=== PATIENT | female | born 1930 | race Caucasian/White ===

== ENCOUNTER 2016-11-21 12:36 | Emergency (ER) | payer MEDICARE ==
[2016-11-21] MEDS ORDERED: ONDANSETRON 4 MG/2 ML VIAL IVP STA (13:37)
[2016-11-21] MEDS ORDERED: SODIUM CHLORIDE 0.9% 1,000 ML IV STA (13:37)
[2016-11-21] MEDS ORDERED: FAMOTIDINE 20 MG/2 ML VIAL IV STA (13:37)
[2016-11-21 13:55] LABS: Basophils % (A) 1 %; CH 30.5; CHCM 33.2; Eosinophils # (A) 0.1 k/uL (0-0.7); Eosinophils % (A) 1 %; HCT 41.8 % (34.0-46.0); HDW 2.43; HGB 13.8 gm/dL (11.4-16.0); Luc # (Auto) 0.19; Luc % (Auto) 2; Lymphocytes # (A) 2.3 k/uL (1.0-4.8); Lymphocytes % (A) 30 %; MCH 30.4 pg (25.0-35.0); MCV 92.2 fL (80.0-100.0); Mean Platelet Volume 7.8; Monocytes # (A) 0.6 k/uL (0-1.0); Monocytes % (A) 8 %; Neutrophils # (A) 4.4 k/uL (1.3-7.7); Neutrophils % (A) 58 %; RBC 4.54 m/uL (3.80-5.40); RDW 13.6 % (11.5-15.5); WBC 7.6 k/uL (3.8-10.6); WBC (Perox) 7.09
[2016-11-21 14:07] LABS: ALT 25 U/L (9-52); AST 22 U/L (14-36); Alkaline Phosphatase 48 U/L (38-126); Anion Gap 14 mmol/L; Blood Urea Nitrogen 18 mg/dL (7-17); Calcium 10.3 mg/dL (8.4-10.2); Carbon Dioxide 22 mmol/L (22-30); Chloride 111 mmol/L (98-107); Glucose 88 mg/dL (74-99); Non-African American GFR(MDRD) >60 (>60 ml/min/1.73 sqM); Potassium 4.3 mmol/L (3.5-5.1); Sodium 147 mmol/L (137-145); Total Bilirubin 0.7 mg/dL (0.2-1.3); Total Protein 7.5 g/dL (6.3-8.2)
--- NOTE | 2016-11-21 14:15 | ED ---
Abdominal Pain HPI - General Chief Complaint: Abdominal Pain Stated Complaint: poss gallbladder problems Time Seen by Provider: 11/21/16 13:06 Source: patient Mode of arrival: ambulatory Limitations: physical limitation - History of Present Illness Initial Comments: The patient is an 86-year-old female who presents to the ED with a chief complaint of epigastric discomfort. Patient states that she's had these symptoms for the past 3 days. She states that they are associated with a burning sensation. They are associated with nausea and vomiting. Patient denies any fevers or chills. She denies any shortness of breath associated with her discomfort. Patient states that she's vomited several times. Patient notes that she has had no problem with having bowel movements. In addition to that, she states that she has been able to tolerate some food by mouth. The patient states that she believes that her symptoms are secondary to her gallbladder. The patient denies any history of cardiac disease. Patient has a history of hypertension. She denies any dysuria or hematuria - Related Data Home Medications Medication Instructions Recorded Confirmed Rosuvastatin [Crestor] 20 mg PO DAILY 05/30/14 11/21/16 [id number]-[id number] [id number] 1 tab PO HS PRN 11/21/16 11/21/16 [Excedrin] Donepezil [Aricept] 10 mg PO HS 11/21/16 11/21/16 Prevagen Extra Strength 1 tab PO DAILY 11/21/16 11/21/16 Previous Rx's Medication Instructions Recorded Cefuroxime Axetil [Ceftin] 500 mg PO BID #14 tab 11/21/16 Omeprazole 20 mg PO DAILY #14 capsule. 11/21/16 Sucralfate [Carafate] 1 gm PO ACHS #420 ml 11/21/16 Allergies Allergy/AdvReac Type Severity Reaction Status Date / Time codeine AdvReac Unknown Rapid Verified 11/21/16 14:15 Heart Rate Review of Systems ROS Statement: Those systems with pertinent positive or pertinent negative responses have been documented in the HPI. ROS Other: All systems not noted in ROS Statement are negative. Constitutional: Denies: fever, chills, weakness Eyes: Denies: vision change ENT: Denies: ear pain, throat pain, dental pain, hearing loss Respiratory: Denies: cough, dyspnea, wheezes, hemoptysis Cardiovascular: Denies: chest pain Endocrine: Denies: fatigue Gastrointestinal: Reports: abdominal pain (epigastric), nausea, vomiting. Denies: diarrhea, constipation Genitourinary: Denies: urgency, dysuria, frequency, hematuria Musculoskeletal: Denies: back pain Skin: Denies: rash, lesions Neurological: Denies: headache, weakness Psychiatric: Denies: anxiety, depression Past Medical History Past Medical History: Chest Pain / Angina, COPD, GERD/Reflux, Hearing Disorder / Deafness, Hyperlipidemia, Liver Disease, Osteoarthritis (OA), Pneumonia Additional Past Medical History / Comment(s): RA. 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 History of Any Multi-Drug Resistant Organisms: None Reported Past Surgical History: Appendectomy, Hernia Repair, Hysterectomy Additional Past Surgical History / Comment(s): RT ING HERNIA 05/30/14. Past Anesthesia/Blood Transfusion Reactions: No Reported Reaction Past Psychological History: No Psychological Hx Reported Smoking Status: Never smoker Past Alcohol Use History: None Reported Past Drug Use History: None Reported General Exam Limitations: physical limitation General appearance: alert, in no apparent distress Head exam: Present: atraumatic, normocephalic Eye exam: Present: normal appearance, PERRL Pupils: Present: normal accommodation ENT exam: Present: normal exam, mucous membranes dry Neck exam: Present: normal inspection, full ROM Respiratory exam: Present: normal lung sounds bilaterally. Absent: respiratory distress, wheezes, rales, rhonchi, stridor Cardiovascular Exam: Present: regular rate, normal rhythm GI/Abdominal exam: Present: soft, tenderness (mild epigastric discomfort). Absent: distended, guarding, rebound Extremities exam: Present: normal inspection, full ROM Back exam: Present: normal inspection, full ROM Neurological exam: Present: alert, oriented X3 Psychiatric exam: Present: normal affect, normal mood Skin exam: Present: warm, dry Course Vital Signs 11/21/16 11/21/16 11/21/16 12:42 16:03 17:12 Temperature 98.6 F 99.0 F Pulse Rate 67 64 61 Respiratory 16 17 16 Rate Blood Pressure 139/71 153/92 163/72 O2 Sat by Pulse 98 94 L 97 Oximetry Medical Decision Making - Medical Decision Making The patient is an 86-year-old female who presents to the ED with a chief complaint of epigastric discomfort. Patient states that her symptoms are associated with nausea and vomiting. Patient states that her symptoms have been present over the course the past 3 days. She states that they have not become worse over this time. Patient notes that she's had some nausea and vomiting. Patient denies any fevers or chills. Patient states that she is concerned that she might have an abnormality with her gallbladder. Check ultrasound to rule out pathology with the gallbladder. Check liver function tests and lipase. Provide patient with Pepcid and Zofran for symptomatically relief. 5:22 PM Patient is noted to have normal EKG. Normal troponin. Normal ultrasound of the gallbladder. Normal CT abdomen and pelvis. Patient states that her symptoms have been improved. She's been able to tolerate by mouth while here in the ED. Will discharge patient home with Omeprazole and Carafate at this point in time. Counseled the patient to follow up with her PCP for further management of her symptoms over the long-term. Encouraged to return to the ED should her symptoms worsen. The patient states that she has had full resolution of her symptoms since coming to the ED. Answered all the patient's questions to her satisfaction. - Lab Data Result diagrams: 11/21/16 13:24 11/21/16 13:24 Lab Results 11/21/16 11/21/16 11/21/16 Range/Units 13:24 13:24 13:24 WBC 7.6 (3.8-10.6) k/uL RBC 4.54 (3.80-5.40) m/uL Hgb 13.8 (11.4-16.0) gm/dL Hct 41.8 (34.0-46.0) % MCV 92.2 (80.0-100.0) fL MCH 30.4 (25.0-35.0) pg MCHC 33.0 (31.0-37.0) g/dL RDW 13.6 (11.5-15.5) % Plt Count 271 (150-450) k/uL Neutrophils % 58 % Lymphocytes % 30 % Monocytes % 8 % Eosinophils % 1 % Basophils % 1 % Neutrophils # 4.4 (1.3-7.7) k/uL Lymphocytes # 2.3 (1.0-4.8) k/uL Monocytes # 0.6 (0-1.0) k/uL Eosinophils # 0.1 (0-0.7) k/uL Basophils # 0.0 (0-0.2) k/uL APTT (22.0-30.0) sec Sodium 147 H (137-145) mmol/L Potassium 4.3 (3.5-5.1) mmol/L Chloride 111 H (98-107) mmol/L Carbon Dioxide 22 (22-30) mmol/L Anion Gap 14 mmol/L BUN 18 H (7-17) mg/dL Creatinine 0.80 (0.52-1.04) mg/dL Est GFR (MDRD) Af Amer >60 (>60 ml/min/1.73 sqM) Est GFR (MDRD) Non-Af >60 (>60 ml/min/1.73 sqM) Glucose 88 (74-99) mg/dL Calcium 10.3 H (8.4-10.2) mg/dL Magnesium 2.0 (1.6-2.3) mg/dL Total Bilirubin 0.7 (0.2-1.3) mg/dL AST 22 (14-36) U/L ALT 25 (9-52) U/L Alkaline Phosphatase 48 (38-126) U/L Troponin I <0.012 (0.000-0.034) ng/mL Total Protein 7.5 (6.3-8.2) g/dL Albumin 4.3 (3.5-5.0) g/dL Lipase 170 (23-300) U/L Urine Color Urine Appearance (Clear) Urine pH (5.0-8.0) Ur Specific [place] (1.001-1.035) Urine Protein (Negative) Urine Glucose (UA) (Negative) Urine Ketones (Negative) Urine Blood (Negative) Urine Nitrite (Negative) Urine Bilirubin (Negative) Urine Urobilinogen (<2.0) mg/dL Ur Leukocyte Esterase (Negative) Urine RBC (0-5) /hpf Urine WBC (0-5) /hpf Ur Squamous Epith Cells (0-4) /hpf Urine Bacteria (None) /hpf Hyaline Casts (0-2) /lpf Urine Mucus (None) /hpf Urine Yeast (Budding) (None) /hpf 11/21/16 11/21/16 Range/Units 13:24 13:42 WBC (3.8-10.6) k/uL RBC (3.80-5.40) m/uL Hgb (11.4-16.0) gm/dL Hct (34.0-46.0) % MCV (80.0-100.0) fL MCH (25.0-35.0) pg MCHC (31.0-37.0) g/dL RDW (11.5-15.5) % Plt Count (150-450) k/uL Neutrophils % % Lymphocytes % % Monocytes % % Eosinophils % % Basophils % % Neutrophils # (1.3-7.7) k/uL Lymphocytes # (1.0-4.8) k/uL Monocytes # (0-1.0) k/uL Eosinophils # (0-0.7) k/uL Basophils # (0-0.2) k/uL APTT 22.9 (22.0-30.0) sec Sodium (137-145) mmol/L Potassium (3.5-5.1) mmol/L Chloride (98-107) mmol/L Carbon Dioxide (22-30) mmol/L Anion Gap mmol/L BUN (7-17) mg/dL Creatinine (0.52-1.04) mg/dL Est GFR (MDRD) Af Amer (>60 ml/min/1.73 sqM) Est GFR (MDRD) Non-Af (>60 ml/min/1.73 sqM) Glucose (74-99) mg/dL Calcium (8.4-10.2) mg/dL Magnesium (1.6-2.3) mg/dL Total Bilirubin (0.2-1.3) mg/dL AST (14-36) U/L ALT (9-52) U/L Alkaline Phosphatase (38-126) U/L Troponin I (0.000-0.034) ng/mL Total Protein (6.3-8.2) g/dL Albumin (3.5-5.0) g/dL Lipase (23-300) U/L Urine Color Yellow Urine Appearance Cloudy H (Clear) Urine pH 8.0 (5.0-8.0) Ur Specific [place] 1.016 (1.001-1.035) Urine Protein Negative (Negative) Urine Glucose (UA) Negative (Negative) Urine Ketones Negative (Negative) Urine Blood Negative (Negative) Urine Nitrite Positive H (Negative) Urine Bilirubin Negative (Negative) Urine Urobilinogen <2.0 (<2.0) mg/dL Ur Leukocyte Esterase Large H (Negative) Urine RBC 2 (0-5) /hpf Urine WBC 8 H (0-5) /hpf Ur Squamous Epith Cells 1 (0-4) /hpf Urine Bacteria Occasional H (None) /hpf Hyaline Casts 4 H (0-2) /lpf Urine Mucus Rare H (None) /hpf Urine Yeast (Budding) Few H (None) /hpf 11/21/16 14:15 EKG demonstrates normal sinus rhythm. There are no concerning ST or T-wave changes. The OH and QRS intervals are within normal limits. Disposition Clinical Impression: Acute UTI, Acute gastritis, Dehydration Disposition: HOME SELF-CARE Condition: Good Instructions: Sucralfate (By mouth), Omeprazole (By mouth), Gastritis (ED), Urinary Tract Infection in Women (ED) Additional Instructions: Please follow up with Dr. Quinones within the next 3-5 days to ensure that your symptoms are improving. You're being discharged with a prescription for antibiotics to treat her urinary tract infection. Also be discharged with medication help with her stomach discomfort. Please return to the ED should you have worsening symptoms while at home. Prescriptions: Cefuroxime Axetil [Ceftin] 500 mg PO BID #14 tab Omeprazole 20 mg PO DAILY #14 capsule.dr Palmer [Carafate] 1 gm PO ACHS #420 ml Referrals: Sabrina Quinones MD [Primary Care Provider] - 11/25/16 (Please follow up with Dr. Quinones within the next 3-5 days regarding your visit to the ED today) Time of Disposition: 17:22
[2016-11-21 14:33] LABS: Appearance,Urine Cloudy (Clear); Bacteria,Urine Occasional /hpf; Bilirubin,Urine Negative (Negative); Glucose,Urine (UA) Negative (Negative); Ketones,Urine Negative (Negative); Leukocyte Esterase,Urine Large (Negative); Mucus,Urine Rare /hpf; Nitrite,Urine Positive (Negative); Particle Count 87100; Protein,Urine Negative (Negative); RBC,Urine 2 /hpf (0-5); Specific Gravity,Urine 1.016 (1.001-1.035); Squamous Epithelial Cell,Urine 1 /hpf (0-4); UA Billing (MACRO vs. MICRO) MICRO; Urobilinogen,Urine <2.0 mg/dL (<2.0); WBC,Urine 8 /hpf (0-5)
--- NOTE | 2016-11-21 15:01 | XR ---
EXAMINATION TYPE: XR chest 2V DATE OF EXAM: 11/21/2016 COMPARISON: Chest x-ray February 23, 2015. HISTORY: Chest and upper abdominal pain. TECHNIQUE: Frontal and lateral views of the chest are obtained. FINDINGS: There is chronic parenchymal change without suspicious focal air space opacity, pleural ef fusion, or pneumothorax seen. The cardiac silhouette size is within normal limits with atherosclerot ic thoracic aorta. The osseous structures are somewhat demineralized. IMPRESSION: Chronic parenchymal change without acute process.
--- NOTE | 2016-11-21 15:45 | US ---
EXAMINATION TYPE: US abdomen limited DATE OF EXAM: 11/21/2016 COMPARISON: NONE CLINICAL HISTORY: RUQ pain. R/O Cholecystitis. EXAM MEASUREMENTS: Liver Length: 13.2 cm Gallbladder Wall: 0.2 cm CBD: 0.4 cm Right Kidney: 9.5 x 3.7 x 4.6 cm Pancreas: wnl in its visualized portions. Liver: wnl Gallbladder: wnl Evidence for sonographic Camarena's sign: no CBD: wnl Right Kidney: 1.2cm superior pole cyst seen cortical medullary differentiation is maintained. There is no ascites. IMPRESSION: Limited exam. Probable simple cyst upper pole right kidney.
[2016-11-21] MEDS ORDERED: RX INFO: IV CONTRAST WAS GIVEN 1 EACH MISC MISCELLANE PRN (16:01)
--- NOTE | 2016-11-21 16:58 | CT ---
EXAMINATION TYPE: CT abdomen pelvis w con DATE OF EXAM: 11/21/2016 COMPARISON: NONE HISTORY: RUQ pain, vomitting CT DLP: 875 mGycm Automated exposure control for dose reduction was used. TECHNIQUE: Helical acquisition of images was performed from the lung bases through the pelvis. CONTRAST: Performed without Oral Contrast and with IV Contrast, patient injected with 100 mL of Omnipaque 300. FINDINGS: There is mild interstitial density at the right posterior lung base. There is no sign of a pulmonary mass. There is no pleural effusion. There is a hiatal hernia. There is a 1 cm cyst in the left lobe of the liver. Bile ducts are not dilated. Spleen and pancreas a ppear normal. Gallbladder appears normal. There is no adrenal mass. There is a 1.5 cm cortical cyst o n the upper pole right kidney. There is no hydronephrosis. There is a 2 cm cortical cyst on the later al right kidney. There is no retroperitoneal adenopathy. There is no ascites. There are multiple dive rticula in the sigmoid colon. I see no sign of diverticulitis. There is no sign of appendicitis. Abdo rosa aorta is atheromatous. There is no evidence of aneurysm. There is no ascites. Bladder distends smoothly. There is no sign of pelvic mass. There is multilevel spondylosis in the lumbar spine. There is degenerative first degree L4-5 spondylolisthesis with moder ate L4-5 level spinal stenosis. There are some diverticula in the transverse colon. IMPRESSION: ATHEROMATOUS AORTA. RIGHT RENAL CORTICAL CYSTS. SMALL HEPATIC CYST. COLONIC DIVERTICULOSIS WITHOUT DI VERTICULITIS. SMALL HIATAL HERNIA. SPONDYLOTIC CHANGES IN THE LUMBAR SPINE WITH L4-5 MODERATE SPINAL STENOSIS.
[2016-11-21 17:24] VITALS: BP 163/72; PULSE 61; RESP 16; TEMP 99
== END 2016-11-21 17:27 | disposition home or self-care (01) ==
LOC: EC 12:36
DX: K29.00 Acute gastritis without bleeding (principal); N39.0 Urinary tract infection, site not specified; E86.0 Dehydration; R11.2 Nausea with vomiting, unspecified; E78.5 Hyperlipidemia, unspecified; I10 Essential (primary) hypertension; Z79.899 Other long term (current) drug therapy; Z88.5 Allergy status to narcotic agent; Z90.49 Acquired absence of other specified parts of digestive tract
CPT/HCPCS: 36415; 93005; 80053; 83690; 83735; 84484; 85025; 85730; 81001; 71020; 76705; 74177; 99284; 96365; 96375 ×2; 96361 ×3; J2405; J0696; Q9967

== ENCOUNTER 2016-12-02 13:22 | Emergency (ER) | payer MEDICARE ==
[2016-12-02 13:57] VITALS: TEMP 97.6
[2016-12-02] MEDS ORDERED: SODIUM CHLORIDE 0.9% 500 ML IV STA (14:09)
--- NOTE | 2016-12-02 14:12 | ED ---
General Adult HPI - General Chief complaint: Recheck/Abnormal Lab/Rx Stated complaint: Dr Sent/Aleida Pain/Nausea Time Seen by Provider: 12/02/16 14:02 Source: patient, RN notes reviewed Mode of arrival: wheelchair Limitations: no limitations - History of Present Illness Initial comments: 86-year-old female presents emergency Department with chief complaint of epigastric discomfort and abnormal labs. Patient states she had laboratory drawn by down her on and was notified that something was abnormal. Patient states that she's been having ongoing issue with intermittent nausea and dry heaves. Patient was seen in emergency department for some her symptoms recently. She denies fever, chills, chest pain or shortness of breath. Patient denies any dysuria or hematuria. She has a very small amount of diarrhea one episode today. Patient denies any constipation prior to this. - Related Data Home Medications Medication Instructions Recorded Confirmed Rosuvastatin [Crestor] 20 mg PO DAILY 05/30/14 12/02/16 [id number]-[id number]-Dylt [id number] 1 tab PO HS PRN 11/21/16 12/02/16 [Excedrin] Donepezil [Aricept] 10 mg PO HS 11/21/16 12/02/16 Prevagen Extra Strength 1 tab PO DAILY 11/21/16 12/02/16 Previous Rx's Medication Instructions Recorded Cefuroxime Axetil [Ceftin] 500 mg PO BID #14 tab 11/21/16 Omeprazole 20 mg PO DAILY #14 capsule. 11/21/16 Sucralfate [Carafate] 1 gm PO ACHS #420 ml 11/21/16 Ondansetron Odt [Zofran Odt] 4 mg PO Q8HR PRN #10 tab 12/02/16 Ranitidine HCl [Zantac] 150 mg PO BID #28 tab 12/02/16 Allergies Allergy/AdvReac Type Severity Reaction Status Date / Time codeine AdvReac Unknown Rapid Verified 12/02/16 13:57 Heart Rate Review of Systems ROS Statement: Those systems with pertinent positive or pertinent negative responses have been documented in the HPI. ROS Other: All systems not noted in ROS Statement are negative. Past Medical History Past Medical History: Chest Pain / Angina, COPD, GERD/Reflux, Hearing Disorder / Deafness, Hyperlipidemia, Liver Disease, Osteoarthritis (OA), Pneumonia Additional Past Medical History / Comment(s): RA. 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 History of Any Multi-Drug Resistant Organisms: None Reported Past Surgical History: Appendectomy, Hernia Repair, Hysterectomy Additional Past Surgical History / Comment(s): RT ING HERNIA 05/30/14. Past Anesthesia/Blood Transfusion Reactions: No Reported Reaction Past Psychological History: No Psychological Hx Reported Smoking Status: Never smoker Past Alcohol Use History: None Reported Past Drug Use History: None Reported General Exam Limitations: no limitations General appearance: alert, in no apparent distress Neck exam: Present: normal inspection. Absent: tenderness, meningismus, lymphadenopathy Respiratory exam: Present: normal lung sounds bilaterally. Absent: respiratory distress, wheezes, rales, rhonchi, stridor Cardiovascular Exam: Present: regular rate, normal rhythm, normal heart sounds. Absent: systolic murmur, diastolic murmur, rubs, gallop, clicks GI/Abdominal exam: Present: soft, tenderness (Mild epigastric tenderness), normal bowel sounds. Absent: distended, guarding, rebound, rigid Back exam: Absent: CVA tenderness (R), CVA tenderness (L) Skin exam: Present: warm, dry, intact, normal color. Absent: rash Course Vital Signs 12/02/16 12/02/16 13:52 15:26 Temperature 97.6 F Pulse Rate 69 62 Respiratory 16 18 Rate Blood Pressure 108/68 153/85 O2 Sat by Pulse 98 95 Oximetry Medical Decision Making - Medical Decision Making 86-year-old female presented for epigastric pain and nausea. Patient lab work does not reveal any abnormality's. Patient has had prior CT on previous visit here. We attempted to contact office for prior labs cystoscopy. Patient was discharged with antiemetics. Patient follow-up with primary care physician. - Lab Data Result diagrams: 12/02/16 14:23 12/02/16 14:23 Lab Results 12/02/16 12/02/16 12/02/16 Range/Units 14:23 14:23 14:23 WBC 6.5 (3.8-10.6) k/uL RBC 4.57 (3.80-5.40) m/uL Hgb 13.7 (11.4-16.0) gm/dL Hct 43.2 (34.0-46.0) % MCV 94.7 (80.0-100.0) fL MCH 30.1 (25.0-35.0) pg MCHC 31.8 (31.0-37.0) g/dL RDW 13.7 (11.5-15.5) % Plt Count 219 (150-450) k/uL Neutrophils % 58 % Lymphocytes % 32 % Monocytes % 6 % Eosinophils % 1 % Basophils % 0 % Neutrophils # 3.8 (1.3-7.7) k/uL Lymphocytes # 2.1 (1.0-4.8) k/uL Monocytes # 0.4 (0-1.0) k/uL Eosinophils # 0.1 (0-0.7) k/uL Basophils # 0.0 (0-0.2) k/uL PT 10.7 (9.0-12.0) sec INR 1.1 (<1.1) APTT 24.4 (22.0-30.0) sec Sodium 145 (137-145) mmol/L Potassium 4.4 (3.5-5.1) mmol/L Chloride 109 H (98-107) mmol/L Carbon Dioxide 22 (22-30) mmol/L Anion Gap 14 mmol/L BUN 19 H (7-17) mg/dL Creatinine 0.73 (0.52-1.04) mg/dL Est GFR (MDRD) Af Amer >60 (>60 ml/min/1.73 sqM) Est GFR (MDRD) Non-Af >60 (>60 ml/min/1.73 sqM) Glucose 88 (74-99) mg/dL Calcium 9.8 (8.4-10.2) mg/dL Magnesium 1.9 (1.6-2.3) mg/dL Total Bilirubin 0.8 (0.2-1.3) mg/dL AST 23 (14-36) U/L ALT 21 (9-52) U/L Alkaline Phosphatase 42 (38-126) U/L Troponin I (0.000-0.034) ng/mL Total Protein 7.5 (6.3-8.2) g/dL Albumin 4.3 (3.5-5.0) g/dL Amylase 52 (30-110) U/L Lipase 135 (23-300) U/L Urine Color Urine Appearance (Clear) Urine pH (5.0-8.0) Ur Specific [place] (1.001-1.035) Urine Protein (Negative) Urine Glucose (UA) (Negative) Urine Ketones (Negative) Urine Blood (Negative) Urine Nitrite (Negative) Urine Bilirubin (Negative) Urine Urobilinogen (<2.0) mg/dL Ur Leukocyte Esterase (Negative) Urine RBC (0-5) /hpf Urine WBC (0-5) /hpf Ur Squamous Epith Cells (0-4) /hpf Urine Bacteria (None) /hpf Urine Mucus (None) /hpf 12/02/16 12/02/16 Range/Units 14:23 14:23 WBC (3.8-10.6) k/uL RBC (3.80-5.40) m/uL Hgb (11.4-16.0) gm/dL Hct (34.0-46.0) % MCV (80.0-100.0) fL MCH (25.0-35.0) pg MCHC (31.0-37.0) g/dL RDW (11.5-15.5) % Plt Count (150-450) k/uL Neutrophils % % Lymphocytes % % Monocytes % % Eosinophils % % Basophils % % Neutrophils # (1.3-7.7) k/uL Lymphocytes # (1.0-4.8) k/uL Monocytes # (0-1.0) k/uL Eosinophils # (0-0.7) k/uL Basophils # (0-0.2) k/uL PT (9.0-12.0) sec INR (<1.1) APTT (22.0-30.0) sec Sodium (137-145) mmol/L Potassium (3.5-5.1) mmol/L Chloride (98-107) mmol/L Carbon Dioxide (22-30) mmol/L Anion Gap mmol/L BUN (7-17) mg/dL Creatinine (0.52-1.04) mg/dL Est GFR (MDRD) Af Amer (>60 ml/min/1.73 sqM) Est GFR (MDRD) Non-Af (>60 ml/min/1.73 sqM) Glucose (74-99) mg/dL Calcium (8.4-10.2) mg/dL Magnesium (1.6-2.3) mg/dL Total Bilirubin (0.2-1.3) mg/dL AST (14-36) U/L ALT (9-52) U/L Alkaline Phosphatase (38-126) U/L Troponin I <0.012 (0.000-0.034) ng/mL Total Protein (6.3-8.2) g/dL Albumin (3.5-5.0) g/dL Amylase (30-110) U/L Lipase (23-300) U/L Urine Color Yellow Urine Appearance Clear (Clear) Urine pH 7.0 (5.0-8.0) Ur Specific [place] 1.018 (1.001-1.035) Urine Protein Trace H (Negative) Urine Glucose (UA) Negative (Negative) Urine Ketones Negative (Negative) Urine Blood Negative (Negative) Urine Nitrite Negative (Negative) Urine Bilirubin Negative (Negative) Urine Urobilinogen <2.0 (<2.0) mg/dL Ur Leukocyte Esterase Small H (Negative) Urine RBC 4 (0-5) /hpf Urine WBC 2 (0-5) /hpf Ur Squamous Epith Cells 1 (0-4) /hpf Urine Bacteria Rare H (None) /hpf Urine Mucus Rare H (None) /hpf Disposition Clinical Impression: Acute gastritis, Nausea Disposition: HOME SELF-CARE Condition: Stable Instructions: Gastritis (ED) Additional Instructions: Please return to the Emergency Department if symptoms worsen or any other concerns. Prescriptions: Ondansetron Odt [Zofran Odt] 4 mg PO Q8HR PRN #10 tab PRN Reason: Nausea Ranitidine HCl [Zantac] 150 mg PO BID #28 tab Referrals: Sabrina Quinones MD [Primary Care Provider] - 1-2 days Time of Disposition: 15:52
[2016-12-02 14:42] LABS: Basophils % (A) 0 %; CH 30.8; CHCM 32.7; Eosinophils # (A) 0.1 k/uL (0-0.7); Eosinophils % (A) 1 %; HCT 43.2 % (34.0-46.0); HDW 2.41; HGB 13.7 gm/dL (11.4-16.0); Luc # (Auto) 0.13; Luc % (Auto) 2; Lymphocytes # (A) 2.1 k/uL (1.0-4.8); Lymphocytes % (A) 32 %; MCH 30.1 pg (25.0-35.0); MCHC 31.8 g/dL (31.0-37.0); MCV 94.7 fL (80.0-100.0); Mean Platelet Volume 7.8; Monocytes # (A) 0.4 k/uL (0-1.0); Monocytes % (A) 6 %; Neutrophils # (A) 3.8 k/uL (1.3-7.7); Neutrophils % (A) 58 %; RBC 4.57 m/uL (3.80-5.40); RDW 13.7 % (11.5-15.5); WBC 6.5 k/uL (3.8-10.6); WBC (Perox) 6.56
[2016-12-02 14:48] LABS: INR 1.1 (<1.1); Partial Thromboplastin Time 24.4 sec (22.0-30.0); Prothrombin Time 10.7 sec (9.0-12.0)
[2016-12-02 14:49] LABS: ALT 21 U/L (9-52); AST 23 U/L (14-36); Alkaline Phosphatase 42 U/L (38-126); Amylase 52 U/L (30-110); Anion Gap 14 mmol/L; Blood Urea Nitrogen 19 mg/dL (7-17); Calcium 9.8 mg/dL (8.4-10.2); Carbon Dioxide 22 mmol/L (22-30); Chloride 109 mmol/L (98-107); Glucose 88 mg/dL (74-99); Magnesium 1.9 mg/dL (1.6-2.3); Non-African American GFR(MDRD) >60 (>60 ml/min/1.73 sqM); Potassium 4.4 mmol/L (3.5-5.1); Sodium 145 mmol/L (137-145); Total Bilirubin 0.8 mg/dL (0.2-1.3); Total Protein 7.5 g/dL (6.3-8.2)
--- NOTE | 2016-12-02 14:52 | XR ---
Abdomen HISTORY: Urinary tract infection, epigastric pain frontal view of the abdomen on 2 images correlated to prior exam dated 11/21/2016. There is a spinal curvature. Lung bases are clear. No bowel obstruction or pneumoperitoneum. Degenera tive disc changes in the visualized spine. Vascular calcification suspected within the pelvis. Arthro partha noted within the hips. IMPRESSION: Nonobstructive bowel gas pattern
[2016-12-02 15:06] LABS: Appearance,Urine Clear (Clear); Bacteria,Urine Rare /hpf; Bilirubin,Urine Negative (Negative); Glucose,Urine (UA) Negative (Negative); Ketones,Urine Negative (Negative); Leukocyte Esterase,Urine Small (Negative); Mucus,Urine Rare /hpf; Nitrite,Urine Negative (Negative); Particle Count 3633; Protein,Urine Trace (Negative); RBC,Urine 4 /hpf (0-5); Specific Gravity,Urine 1.018 (1.001-1.035); Squamous Epithelial Cell,Urine 1 /hpf (0-4); UA Billing (MACRO vs. MICRO) MICRO; Urobilinogen,Urine <2.0 mg/dL (<2.0); WBC,Urine 2 /hpf (0-5)
[2016-12-02 15:27] VITALS: BP 153/85; PULSE 62; RESP 18
== END 2016-12-02 15:57 | disposition home or self-care (01) ==
LOC: EC 13:22
DX: K29.00 Acute gastritis without bleeding (principal); E78.5 Hyperlipidemia, unspecified; Z90.49 Acquired absence of other specified parts of digestive tract; Z98.890 Other specified postprocedural states; Z88.5 Allergy status to narcotic agent; Z79.899 Other long term (current) drug therapy
CPT/HCPCS: 36415; 74000; 80053; 81001; 82150; 83690; 83735; 84484; 85025; 85610; 85730; 99284

== ENCOUNTER → 2016-12-05 | Outpatient (CLI) | payer MEDICARE ==
--- NOTE | 2016-12-05 16:00 | CT ---
EXAMINATION TYPE: CT abdomen w con DATE OF EXAM: 12/05/2016 COMPARISON: 11/21/2016 CT abdomen and pelvis INDICATION: Upper abdominal pain x2 weeks. DLP: 299.1 mGycm, Automated exposure control for dose reduction was used. CONTRAST: 100 mL of Omnipaque 300. Study performed with Oral Contrast TECHNIQUE: Axial images were obtained from above the diaphragm to the pubic rami in the axial plane a t 5 mm thick sections. Reconstructed images are reviewed on the computer in the coronal plane. FINDINGS: Limited CT sections are obtained the lung bases. The lung bases are clear. CT ABDOMEN: Liver: There is a 0.7 cm left medial hepatic cysts. Spleen: Normal Pancreas: Normal Adrenal glands: The adrenal glands are normal. Gallbladder: Normal Kidneys: No masses are evident. No hydronephrosis is present. There is a 1.2 cm cyst at the superio r pole right kidney. A posterior lateral right cortical renal cyst 0.8 cm on the right kidney. Delay ed images were obtained through the kidneys, which remain unremarkable. Aorta: Vascular calcification is within the aorta. Inferior vena cava: Normal. Note is made of a few diverticular changes without acute diverticulitis. Small bowel loops distended with oral contrast appear unremarkable. IMPRESSIONS: 1. Hepatic and renal cysts. 2. Exam is stable from 11/21/2016.
== END | disposition home or self-care (01) ==
LOC: RADCTMAIN 14:50
PROVIDERS: ATTEND Internal Medicine
DX: K76.89 Other specified diseases of liver (principal)
CPT/HCPCS: 74160; Q9967

== ENCOUNTER → 2016-12-25 | Outpatient (CLI) | payer MEDICARE ==
--- NOTE | 2016-12-26 09:05 | NM ---
Nuclear medicine hepatobiliary scan. HISTORY: Pain. DOSAGE: The patient received 8 ounces of ensure plus and 5 mCi of Technetium 99m Choletec. FINDINGS: There is normal hepatic extraction. The gallbladder is seen by 25 minutes. There is bilia ry to bowel clearance by 30 minutes. Ejection fraction is 87%. IMPRESSION: 1. No evidence of cholecystitis. Ejection fraction of 87% can occasionally be seen with hyperdynamic gallbladder. Correlate clinically.
== END | disposition home or self-care (01) ==
LOC: RADNMMAIN 14:40
PROVIDERS: ATTEND Internal Medicine
DX: R10.9 Unspecified abdominal pain (principal)
CPT/HCPCS: 78226; A9537

== ENCOUNTER → 2017-01-21 | Outpatient (CLI) | payer MEDICARE ==
--- NOTE | 2017-01-21 10:17 | MR ---
MRCP HISTORY: Abdomen pain, R 10.9 Multiplanar multisequence imaging obtained through the biliary system. Exam correlated to nuclear med icine biliary scan 12/25/2016, CT abdomen 12/05/2016 Some mild signal drop within the liver on out of phase imaging is suggestive of hepatic steatosis. Candelaria bcentimeter left lobe hepatic cyst is again noted. Small hiatal hernia is present. 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 Gastric wall is somewhat thickened, correlate to exclude gastritis. Cortical cyst s are associated with the kidneys as noted on CT. Multilevel degenerative disc disease is noted. There is a spinal curvature. Within the spinal canal there is bone remodeling present, expansion of the spinal canal with apparent compression of the dist al thoracic cord and nerve roots. There is no aortic aneurysm evident. No filling defect within the urinary system to suggest retained stone. No dilation of the bile ducts. Question abnormal thickening of the cecum. IMPRESSION: Questionable abnormal thickening of the cecum, if bowel surveillance has not been perform ed, it should be considered. Duodenal diverticulum, hiatal hernia, suspect some gastric wall thickeni ng which could be due to lack of distention, correlate to exclude gastritis. Hepatic steatosis. Findi ngs in the spine could be indicative of underlying arachnoid cyst, consider lumbar MRI with and witho ut contrast. Additional findings above.
== END | disposition home or self-care (01) ==
LOC: RADMRIMAIN 08:52
PROVIDERS: ATTEND Internal Medicine
DX: K76.0 Fatty (change of) liver, not elsewhere classified (principal); K57.10 Diverticulosis of small intestine without perforation or abscess without bleeding; K44.9 Diaphragmatic hernia without obstruction or gangrene
CPT/HCPCS: 74181

== ENCOUNTER → 2017-07-29 | Outpatient (CLI) | payer MEDICARE ==
--- NOTE | 2017-07-30 07:33 | BD ---
EXAMINATION TYPE: MG DEXA axial skeleton. DATE OF EXAM: 07/29/2017 COMPARISON: NONE CLINICAL HISTORY: Height: 4 FT 8 1/2 IN Weight: 101 FRAX RISK QUESTIONS: Alcohol (3 or more units per day): NO Family History (Parent hip fracture): NO Glucocorticoids (More than 3mos): NO (Ex: prednisone, prednisolone, methylprednisolone, dexamethasone, and hydrocortisone). History of Fracture in Adulthood: NO Secondary Osteoporosis: 1. Type 1 Diabetes: NO 2. Hyperthyroidism: NO 3. Menopause before 45: PT UNSURE 4. Malnutrition: NO 5. Chronic liver disease: NO Rheumatoid Arthritis: NO Current Tobacco Use: NO RISK FACTORS HISTORY OF: Active: YES Postmenopausal woman: PT UNSURE Lost more than 2 inches in height since high school: YES MEDICATIONS: Additional Medications: Additional History: POOR HISTORIAN NOT SURE ON MEDS EXAM MEASUREMENTS: Bone mineral densitometry was performed using the WebPT System. Bone mineral density as measured about the Lumbar spine is: ----- L1-L4(G/cm2): 1.068 T Score Values are as follows: ----- L2: -2.4 ----- L3: -0.4 ----- L4: 0.4 ----- L1-L4: -0.9 Bone mineral density has: INCREASED 0.1 % since study of: 2013 Bone mineral density about the R hip (g/cm2): 0.679 Bone mineral density about the L hip (g/cm2): 0.633 T Score values are as follows: -----R Neck: -2.6 -----L Neck: -2.9 -----R Total: -2.5 -----L Total: -2.5 Bone mineral density has: DECREASED -13.2 % since study of: 2013 IMPRESSION: Osteoporosis (T Score less than -2.5). There is increased fracture risk and therapy is usually indicated based on age. Re-Screen 1-2 years. NOTE: T-SCORE=SD OF THE YOUNG ADULT MEAN.
--- NOTE | 2017-07-31 11:45 | MM ---
Reason for exam: screening (asymptomatic). Last mammogram was performed 2 years and 2 months ago. History: Patient is postmenopausal. Family history of breast cancer in sister at age 80. Physical Findings: A clinical breast exam by your physician is recommended on an annual basis and results should be correlated with mammographic findings. MG 3D Screening Mammo W/Cad Bilateral CC and MLO view(s) were taken. Prior study comparison: May 23, 2015, mammogram. May 05, 2014, mammogram. There are scattered fibroglandular densities. No significant changes when compared with prior studies. ASSESSMENT: Negative, BI-RAD 1 RECOMMENDATION: Routine screening mammogram of both breasts in 1 year.
== END | disposition home or self-care (01) ==
LOC: RADMAMWWP 14:58
PROVIDERS: ATTEND Internal Medicine
DX: Z12.31 Encounter for screening mammogram for malignant neoplasm of breast (principal); M81.0 Age-related osteoporosis without current pathological fracture
CPT/HCPCS: 77063; 77067; 77080

== ENCOUNTER 2017-09-02 21:45 | Observation (INO) | payer MEDICARE ==
[2017-09-02] MEDS ORDERED: SODIUM CHLORIDE 0.9% 500 ML IV STA (22:11)
[2017-09-02] MEDS ORDERED: SODIUM CHLORIDE 0.9% 1,000 ML IV STA (22:11)
--- NOTE | 2017-09-02 22:23 | ED ---
General Adult HPI - General Chief complaint: Nausea/Vomiting/Diarrhea Stated complaint: no appetite Time Seen by Provider: 09/02/17 22:05 Source: patient, RN notes reviewed Mode of arrival: ambulatory Limitations: no limitations - History of Present Illness Initial comments: 86-year-old female presents with generalized weakness and decreased appetite. Patient states over the past 4-5 days she has had generalized weakness, has been unable to get out of bed. She states that she had 2 episodes of vomiting which was 2 days ago. No vomiting today. She was able to eat a small breakfast today. She has had persistent nausea and some mild epigastric pain. She is unable to differentiate her epigastric pain from chest pain but denies any radiating typical chest pain or dyspnea. No history of fever. She has had a runny nose. No dysuria. No lower abdominal pain. No history of fever. - Related Data Home Medications Medication Instructions Recorded Confirmed Rosuvastatin [Crestor] 20 mg PO DAILY 05/30/14 12/02/16 [id number] 1 tab PO HS PRN 11/21/16 12/02/16 [Excedrin] Donepezil [Aricept] 10 mg PO HS 11/21/16 12/02/16 Prevagen Extra Strength 1 tab PO DAILY 11/21/16 12/02/16 Previous Rx's Medication Instructions Recorded Cefuroxime Axetil [Ceftin] 500 mg PO BID #14 tab 11/21/16 Omeprazole 20 mg PO DAILY #14 capsule. 11/21/16 Sucralfate [Carafate] 1 gm PO ACHS #420 ml 11/21/16 Ondansetron Odt [Zofran Odt] 4 mg PO Q8HR PRN #10 tab 12/02/16 Ranitidine HCl [Zantac] 150 mg PO BID #28 tab 12/02/16 Allergies Allergy/AdvReac Type Severity Reaction Status Date / Time codeine AdvReac Unknown Rapid Verified 09/02/17 21:51 Heart Rate Review of Systems ROS Statement: Those systems with pertinent positive or pertinent negative responses have been documented in the HPI. ROS Other: All systems not noted in ROS Statement are negative. Past Medical History Past Medical History: Chest Pain / Angina, COPD, GERD/Reflux, Hearing Disorder / Deafness, Hyperlipidemia, Liver Disease, Osteoarthritis (OA), Pneumonia Additional Past Medical History / Comment(s): RA. 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 History of Any Multi-Drug Resistant Organisms: None Reported Past Surgical History: Appendectomy, Hernia Repair, Hysterectomy Additional Past Surgical History / Comment(s): RT ING HERNIA 05/30/14. Past Anesthesia/Blood Transfusion Reactions: No Reported Reaction Past Psychological History: No Psychological Hx Reported Smoking Status: Never smoker Past Alcohol Use History: None Reported Past Drug Use History: None Reported General Exam Limitations: no limitations General appearance: alert, in no apparent distress Head exam: Present: atraumatic, normocephalic Eye exam: Present: normal appearance, PERRL ENT exam: Present: mucous membranes dry Neck exam: Present: normal inspection. Absent: tenderness, meningismus Respiratory exam: Present: normal lung sounds bilaterally. Absent: respiratory distress, wheezes Cardiovascular Exam: Present: regular rate, normal rhythm GI/Abdominal exam: Present: soft, tenderness (Mild epigastric tenderness). Absent: distended Extremities exam: Present: normal inspection, normal capillary refill. Absent: pedal edema Neurological exam: Present: alert, oriented X3, CN II-XII intact. Absent: motor sensory deficit Psychiatric exam: Present: normal affect, normal mood Skin exam: Present: warm, dry, intact. Absent: cyanosis, diaphoretic Course Vital Signs 09/02/17 09/03/17 21:48 00:14 Temperature 98.3 F Pulse Rate 74 63 Respiratory 20 18 Rate Blood Pressure 174/87 159/94 O2 Sat by Pulse 98 97 Oximetry EKG Findings - EKG Comments: EKG Findings:: EKG shows sinus bradycardia, left axis deviation, ventricular rate of 51, MI interval 176, QRS duration 76, QTC [address] segment elevation or depression Medical Decision Making - Medical Decision Making 86-year-old female presenting with nausea vomiting, decreased appetite. Patient clinically appears dehydrated. Laboratory studies are obtained, white blood cell count normal, hemoglobin stable, looks lites within normal limits. There is mild lactic acidosis at 2.2 consistent with dehydration. Troponin negative, influenza negative, urinalysis shows 19 white blood cells with no bacteria, and patient is asymptomatic. Chest x-ray negative, x-ray of the abdomen is negative for obstruction or intraperitoneal free air. Patient will require IV hydration and observation. - Lab Data Result diagrams: 09/02/17 22:30 09/02/17 22:30 Lab Results 09/02/17 09/02/17 09/02/17 Range/Units 22:30 22:30 22:30 WBC 8.8 (3.8-10.6) k/uL RBC 4.99 (3.80-5.40) m/uL Hgb 14.5 (11.4-16.0) gm/dL Hct 43.4 (34.0-46.0) % MCV 86.9 (80.0-100.0) fL MCH 29.1 (25.0-35.0) pg MCHC 33.5 (31.0-37.0) g/dL RDW 13.5 (11.5-15.5) % Plt Count 243 (150-450) k/uL Neutrophils % 65 % Lymphocytes % 26 % Monocytes % 6 % Eosinophils % 2 % Basophils % 0 % Neutrophils # 5.7 (1.3-7.7) k/uL Lymphocytes # 2.3 (1.0-4.8) k/uL Monocytes # 0.5 (0-1.0) k/uL Eosinophils # 0.1 (0-0.7) k/uL Basophils # 0.0 (0-0.2) k/uL PT (9.0-12.0) sec INR (<1.2) APTT (22.0-30.0) sec Sodium 142 (137-145) mmol/L Potassium 3.8 (3.5-5.1) mmol/L Chloride 106 (98-107) mmol/L Carbon Dioxide 23 (22-30) mmol/L Anion Gap 13 mmol/L BUN 22 H (7-17) mg/dL Creatinine 0.90 (0.52-1.04) mg/dL Est GFR (CKD-EPI)AfAm 68 (>60 ml/min/1.73 sqM) Est GFR (CKD-EPI)NonAf 59 (>60 ml/min/1.73 sqM) Glucose 105 H (74-99) mg/dL Plasma Lactic Acid Jesus (0.7-2.0) mmol/L Calcium 10.3 H (8.4-10.2) mg/dL Magnesium 1.8 (1.6-2.3) mg/dL Total Bilirubin 0.5 (0.2-1.3) mg/dL AST 18 (14-36) U/L ALT 8 L (9-52) U/L Alkaline Phosphatase 49 (38-126) U/L Total Creatine Kinase 36 (30-135) U/L CK-MB (CK-2) 0.7 (0.0-2.4) ng/mL CK-MB (CK-2) Rel Index 1.9 Troponin I <0.012 (0.000-0.034) ng/mL Total Protein 7.5 (6.3-8.2) g/dL Albumin 4.1 (3.5-5.0) g/dL Urine Color Urine Appearance (Clear) Urine pH (5.0-8.0) Ur Specific [place] (1.001-1.035) Urine Protein (Negative) Urine Glucose (UA) (Negative) Urine Ketones (Negative) Urine Blood (Negative) Urine Nitrite (Negative) Urine Bilirubin (Negative) Urine Urobilinogen (<2.0) mg/dL Ur Leukocyte Esterase (Negative) Urine RBC (0-5) /hpf Urine WBC (0-5) /hpf Ur Squamous Epith Cells (0-4) /hpf Urine Mucus (None) /hpf Influenza Type A RNA (Not Detectd) Influenza Type B (PCR) (Not Detectd) 09/02/17 09/02/17 09/02/17 Range/Units 22:30 22:30 22:30 WBC (3.8-10.6) k/uL RBC (3.80-5.40) m/uL Hgb (11.4-16.0) gm/dL Hct (34.0-46.0) % MCV (80.0-100.0) fL MCH (25.0-35.0) pg MCHC (31.0-37.0) g/dL RDW (11.5-15.5) % Plt Count (150-450) k/uL Neutrophils % % Lymphocytes % % Monocytes % % Eosinophils % % Basophils % % Neutrophils # (1.3-7.7) k/uL Lymphocytes # (1.0-4.8) k/uL Monocytes # (0-1.0) k/uL Eosinophils # (0-0.7) k/uL Basophils # (0-0.2) k/uL PT 10.7 (9.0-12.0) sec INR 1.1 (<1.2) APTT 23.1 (22.0-30.0) sec Sodium (137-145) mmol/L Potassium (3.5-5.1) mmol/L Chloride (98-107) mmol/L Carbon Dioxide (22-30) mmol/L Anion Gap mmol/L BUN (7-17) mg/dL Creatinine (0.52-1.04) mg/dL Est GFR (CKD-EPI)AfAm (>60 ml/min/1.73 sqM) Est GFR (CKD-EPI)NonAf (>60 ml/min/1.73 sqM) Glucose (74-99) mg/dL Plasma Lactic Acid Jesus 2.2 H* (0.7-2.0) mmol/L Calcium (8.4-10.2) mg/dL Magnesium (1.6-2.3) mg/dL Total Bilirubin (0.2-1.3) mg/dL AST (14-36) U/L ALT (9-52) U/L Alkaline Phosphatase (38-126) U/L Total Creatine Kinase (30-135) U/L CK-MB (CK-2) (0.0-2.4) ng/mL CK-MB (CK-2) Rel Index Troponin I (0.000-0.034) ng/mL Total Protein (6.3-8.2) g/dL Albumin (3.5-5.0) g/dL Urine Color Urine Appearance (Clear) Urine pH (5.0-8.0) Ur Specific [place] (1.001-1.035) Urine Protein (Negative) Urine Glucose (UA) (Negative) Urine Ketones (Negative) Urine Blood (Negative) Urine Nitrite (Negative) Urine Bilirubin (Negative) Urine Urobilinogen (<2.0) mg/dL Ur Leukocyte Esterase (Negative) Urine RBC (0-5) /hpf Urine WBC (0-5) /hpf Ur Squamous Epith Cells (0-4) /hpf Urine Mucus (None) /hpf Influenza Type A RNA Not Detected (Not Detectd) Influenza Type B (PCR) Not Detected (Not Detectd) 09/02/17 Range/Units 23:36 WBC (3.8-10.6) k/uL RBC (3.80-5.40) m/uL Hgb (11.4-16.0) gm/dL Hct (34.0-46.0) % MCV (80.0-100.0) fL MCH (25.0-35.0) pg MCHC (31.0-37.0) g/dL RDW (11.5-15.5) % Plt Count (150-450) k/uL Neutrophils % % Lymphocytes % % Monocytes % % Eosinophils % % Basophils % % Neutrophils # (1.3-7.7) k/uL Lymphocytes # (1.0-4.8) k/uL Monocytes # (0-1.0) k/uL Eosinophils # (0-0.7) k/uL Basophils # (0-0.2) k/uL PT (9.0-12.0) sec INR (<1.2) APTT (22.0-30.0) sec Sodium (137-145) mmol/L Potassium (3.5-5.1) mmol/L Chloride (98-107) mmol/L Carbon Dioxide (22-30) mmol/L Anion Gap mmol/L BUN (7-17) mg/dL Creatinine (0.52-1.04) mg/dL Est GFR (CKD-EPI)AfAm (>60 ml/min/1.73 sqM) Est GFR (CKD-EPI)NonAf (>60 ml/min/1.73 sqM) Glucose (74-99) mg/dL Plasma Lactic Acid Jesus (0.7-2.0) mmol/L Calcium (8.4-10.2) mg/dL Magnesium (1.6-2.3) mg/dL Total Bilirubin (0.2-1.3) mg/dL AST (14-36) U/L ALT (9-52) U/L Alkaline Phosphatase (38-126) U/L Total Creatine Kinase (30-135) U/L CK-MB (CK-2) (0.0-2.4) ng/mL CK-MB (CK-2) Rel Index Troponin I (0.000-0.034) ng/mL Total Protein (6.3-8.2) g/dL Albumin (3.5-5.0) g/dL Urine Color Light Yellow Urine Appearance Cloudy H (Clear) Urine pH 7.5 (5.0-8.0) Ur Specific [place] 1.010 (1.001-1.035) Urine Protein Negative (Negative) Urine Glucose (UA) Negative (Negative) Urine Ketones Negative (Negative) Urine Blood Negative (Negative) Urine Nitrite Negative (Negative) Urine Bilirubin Negative (Negative) Urine Urobilinogen <2.0 (<2.0) mg/dL Ur Leukocyte Esterase Large H (Negative) Urine RBC 1 (0-5) /hpf Urine WBC 19 H (0-5) /hpf Ur Squamous Epith Cells 9 H (0-4) /hpf Urine Mucus Rare H (None) /hpf Influenza Type A RNA (Not Detectd) Influenza Type B (PCR) (Not Detectd) Disposition Clinical Impression: Dehydration, Lactic acidosis Disposition: ADMITTED IP TO THIS [facility] Condition: Stable Referrals: Sabrina Quinones MD [Primary Care Provider] - 1-2 days Decision to Admit Reason: Admit from EC Decision Date: 09/03/17 Decision Time: 00:22
[2017-09-02 22:45] LABS: Basophils % (A) 0 %; Eosinophils # (A) 0.1 k/uL (0-0.7); Eosinophils % (A) 2 %; HCT 43.4 % (34.0-46.0); HGB 14.5 gm/dL (11.4-16.0); Lymphocytes # (A) 2.3 k/uL (1.0-4.8); Lymphocytes % (A) 26 %; MCH 29.1 pg (25.0-35.0); MCHC 33.5 g/dL (31.0-37.0); MCV 86.9 fL (80.0-100.0); Mean Platelet Volume 8.2; Monocytes # (A) 0.5 k/uL (0-1.0); Monocytes % (A) 6 %; Neutrophils # (A) 5.7 k/uL (1.3-7.7); Neutrophils % (A) 65 %; Platelet Count 243 k/uL (150-450); RBC 4.99 m/uL (3.80-5.40); RDW 13.5 % (11.5-15.5); WBC 8.8 k/uL (3.8-10.6)
[2017-09-02 22:58] LABS: Albumin 4.1 g/dL (3.5-5.0); Calcium 10.3 mg/dL (8.4-10.2); INR 1.1 (<1.2); Magnesium 1.8 mg/dL (1.6-2.3); Partial Thromboplastin Time 23.1 sec (22.0-30.0); Potassium 3.8 mmol/L (3.5-5.1); Prothrombin Time 10.7 sec (9.0-12.0); Total Bilirubin 0.5 mg/dL (0.2-1.3); Total Protein 7.5 g/dL (6.3-8.2)
[2017-09-02 23:00] LABS: Creatine Kinase 36 U/L (30-135)
[2017-09-02 23:10] LABS: Creatine Kinase MB 0.7 ng/mL (0.0-2.4)
[2017-09-02 23:14] LABS: Troponin I <0.012 ng/mL (0.000-0.034)
--- NOTE | 2017-09-02 23:14 | XR ---
EXAMINATION TYPE: XR chest 2V DATE OF EXAM: 09/02/2017 COMPARISON: 11/21/2016 HISTORY: Weakness TECHNIQUE: Frontal and lateral views of the chest are obtained. FINDINGS: There is no heart failure nor confluent pneumonic infiltrate. Heart size is normal. Thorac ic aorta is atheromatous. There is no sign of pleural effusion. IMPRESSION: No active cardiopulmonary disease. No change.
--- NOTE | 2017-09-02 23:22 | XR ---
EXAMINATION TYPE: XR KUB DATE OF EXAM: 09/02/2017 COMPARISON: 12/02/2016 HISTORY: Weakness TECHNIQUE: Single view FINDINGS: There is no sign of intestinal obstruction or pneumoperitoneum. Fecal pattern is normal. Th ere are no pathologic calcifications over the kidneys. There is spurring in the lumbar spine. There i s deformity of the left iliac bone from previous surgery. There is acetabular spurring. IMPRESSION: Nonacute abdomen. No adverse change compared to old exam.
[2017-09-02 23:56] LABS: Appearance,Urine Cloudy (Clear); Bilirubin,Urine Negative (Negative); Blood,Urine Negative (Negative); Color,Urine Light Yellow; Glucose,Urine (UA) Negative (Negative); Ketones,Urine Negative (Negative); Leukocyte Esterase,Urine Large (Negative); Mucus,Urine Rare /hpf; Nitrite,Urine Negative (Negative); PH, Urine 7.5 (5.0-8.0); Protein,Urine Negative (Negative); RBC,Urine 1 /hpf (0-5); Squamous Epithelial Cell,Urine 9 /hpf (0-4); Urobilinogen,Urine <2.0 mg/dL (<2.0); WBC,Urine 19 /hpf (0-5)
[2017-09-03] MEDS ORDERED: NALOXONE 0.4 MG/ML 1 ML VIAL IV PRN (00:17)
[2017-09-03] MEDS ORDERED: ONDANSETRON 4 MG/2 ML VIAL IVP PRN (00:17)
[2017-09-03] MEDS: SODIUM CHLORIDE 0.9% 1,000 ML IV SCH ×3 (01:21→15:59)
[2017-09-03 14:19] VITALS: BMI 19.5
--- NOTE | 2017-09-03 14:21 | P.HPIM ---
History of Present Illness H&P Date: 09/03/17 (this document. Orthostatic and P and discharge summary) 86 years old female patient of Dr. Quinones with past medical history of pharyngitis, COPD, GERD, hyperlipidemia, osteoarthritis, history of hepatitis, pleasantly demented patient who was admitted yesterday after she complained of generalized weakness, multiple episode of vomiting with difficulty keeping her food down. Patient also complained of epigastric tenderness with persistent nausea. Vitals in the ER of a pulse rate of 60, blood pressure 172/76, saturating well on room air. Patient received 2 L of IV fluids and was admitted for management of change in mental status and dehydration. On evaluation patient is doing well denies any nausea or vomiting. She does have mild epigastric discomfort but denies any change in bowel habits. She denies any fever, chills cough or shortness of breath. Patient does have a history of gastric ulcer and esophageal stricture that [place] [address] Kaur. Review of Systems Constitutional: Denies chills, Denies fever, Denies lethargy, Denies malaise, Denies poor appetite, Denies weakness, Denies weight loss Eyes: denies decreased vision, denies diplopia, denies discharge, denies pain Ears: deny: decreased hearing Ears, nose, mouth and throat: Denies dental pain, Denies headache, Denies nasal discharge, Denies nose pain Cardiovascular: Denies chest pain, Denies decreased exercise tolerance, Denies edema, Denies high blood pressure, Denies irregular heart beat, Denies palpitations, Denies paroxysmal nocturnal dyspnea, Denies rapid heart beat, Denies shortness of breath Respiratory: Denies congestion, Denies cough, Denies cough with sputum, Denies dyspnea, Denies home oxygen, Denies wheezing Gastrointestinal: Endorses epigastric pain, Denies change in bowel habits, Denies coffee ground emesis, Denies early satiety, Denies excessive gas, Denies heartburn, Denies hematemesis, Denies hematochezia, Denies loss of appetite, Denies nausea, Denies vomiting Genitourinary: Denies dysuria, Denies flank pain, Denies kidney stones, Denies menorrhagia, Denies urgency, Denies urinary frequency Musculoskeletal: Denies gait dysfunction and uses cane or walker intermittently , Denies limitation of motion, Denies morning stiffness, Denies muscle cramps Integumentary: Denies rash, Denies wounds, Denies brittle nails, Denies change in hair/nails, Denies darkening of skin Neurological: Denies balance difficulties, Denies change in speech, Denies double vision, Denies gait dysfunction, Denies loss of vision, Denies motor disturbance, Denies numbness, Denies paralysis, Denies paresthesias, Denies seizures Psychiatric: Denies anxiety, Denies depression Endocrine: Denies excessive sweating, Denies excessive thirst, Denies high blood sugars, Denies palpitations Hematologic/Lymphatic: Denies easy bruising, Denies lymphadenopathy Past Medical History Past Medical History: Chest Pain / Angina, COPD, GERD/Reflux, Hearing Disorder / Deafness, Hyperlipidemia, Liver Disease, Osteoarthritis (OA), Pneumonia Additional Past Medical History / Comment(s): RA. 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 History of Any Multi-Drug Resistant Organisms: None Reported Past Surgical History: Appendectomy, Hernia Repair, Hysterectomy Additional Past Surgical History / Comment(s): RT ING HERNIA 05/30/14. Past Anesthesia/Blood Transfusion Reactions: No Reported Reaction Past Psychological History: No Psychological Hx Reported Smoking Status: Never smoker Past Alcohol Use History: None Reported Past Drug Use History: None Reported Medications and Allergies Home Medications Medication Instructions Recorded Confirmed Type Rosuvastatin [Crestor] 20 mg PO DAILY 05/30/14 09/03/17 History Omeprazole 20 mg PO DAILY #14 capsule. 11/21/16 09/03/17 Rx Ondansetron Odt [Zofran ODT] 4 mg PO Q8HR PRN #10 tab 12/02/16 09/03/17 Rx Calcium Carbonate/Vitamin D3 1 tab PO DAILY 09/03/17 09/03/17 History [Calcium 600-Vit D3 400 Tablet] Rivastigmine [Exelon 13.3MG/24Hr 1 patch TRANSDERM Q24HR 09/03/17 09/03/17 History Patch] Zoledronic Acid/Mannitol-Water 5 mg IV Q365D 09/03/17 09/03/17 History [Reclast 5 mg/100 ml Solution] Allergies Allergy/AdvReac Type Severity Reaction Status Date / Time codeine AdvReac Unknown Rapid Verified 09/02/17 21:51 Heart Rate Physical Exam Vitals: Vital Signs Temp Pulse Pulse Resp BP BP Pulse Ox 09/03/17 06:40 97.2 F L 61 18 117/67 95 09/03/17 04:52 16 09/03/17 04:18 97.2 F L 60 18 172/76 99 09/03/17 03:38 97.4 F L 74 18 157/79 97 09/03/17 02:00 98.7 F 61 12 154/68 100 09/03/17 01:00 57 L 19 167/81 98 09/03/17 00:14 63 18 159/94 97 09/02/17 21:48 98.3 F 74 20 174/87 98 Intake and Output 09/02/17 09/03/17 09/03/17 22:59 06:59 14:59 Intake Total 100 Balance 100 Intake: Oral 100 Other: Voiding Method Toilet # Voids 0 2 Weight 45.359 kg 45.5 kg - Constitutional General appearance: cooperative, no acute distress, obese - EENT Eyes: anicteric sclerae, PERRLA, normal appearance ENT: hearing grossly normal - Neck Neck: no lymphadenopathy, normal ROM, no other, no rigidity, no stridor, no thyromegaly - Respiratory Respiratory: bilateral: CTA, negative: diminished, dullness, rales, rhonchi - Cardiovascular Rhythm: regular Heart sounds: normal: S1, S2 Abnormal Heart Sounds: no systolic murmur, no diastolic murmur, no rub, no S3 Gallop, no S4 Gallop, no click, no other - Gastrointestinal General gastrointestinal: normal bowel sounds, soft, mild tenderness in the epigastric region. - Integumentary Integumentary: no rash - Neurologic Neurologic: CNII-XII intact - Musculoskeletal Musculoskeletal: gait normal, strength equal bilaterally - Psychiatric Psychiatric: A&O x's 3, appropriate affect Results CBC & Chem 7: 09/02/17 22:30 09/02/17 22:30 Labs: Abnormal Lab Results - Last 24 Hours (Table) 09/02/17 09/02/17 09/02/17 Range/Units 22:30 22:30 23:36 BUN 22 H (7-17) mg/dL Glucose 105 H (74-99) mg/dL Plasma Lactic Acid Jesus 2.2 H* (0.7-2.0) mmol/L Calcium 10.3 H (8.4-10.2) mg/dL ALT 8 L (9-52) U/L Urine Appearance Cloudy H (Clear) Ur Leukocyte Esterase Large H (Negative) Urine WBC 19 H (0-5) /hpf Ur Squamous Epith Cells 9 H (0-4) /hpf Urine Mucus Rare H (None) /hpf Thrombosis Risk Factor Assmnt - DVT/VTE Prophylaxis DVT/VTE Prophylaxis: Pharmacologic Prophylaxis ordered - Choose All That Apply Any of the Below Risk Factors Present?: Yes Each Factor Represents 1 point: Abnormal pulmonary function (COPD) Other Risk Factors: Yes Each Risk Factor Represents 3 Points: Age 75 years or older Thrombosis Risk Factor Assessment Total Risk Factor Score: 4 Thrombosis Risk Factor Assessment Level: Moderate Risk Assessment and Plan Plan: #1 nausea/vomiting likely secondary to gastritis. Resolved. Patient does have history of gastric ulcer. Continue omeprazole 20 mg before breakfast. #2 hyperlipidemia continue Crestor 20 mg daily #3 history of dementia continued in the stomach may need 1 patch transdermally every 24 hours #4 history of COPD continue DuoNeb as needed for shortness of breath #5 DVT prophylaxis with heparin every 12 #6 CODE STATUS full code #7 lactic acidosis secondary to dehydration and hypovolemia. Improved after IV fluids Disposition home with self-care CC a copy of discharge to Dr. Quinones
[2017-09-03 15:29] VITALS: BP 98/55; PULSE 63; RESP 16; TEMP 97.7
== END 2017-09-03 16:06 | disposition home health service (06) ==
LOC: EC 21:45 → 4MS4W 09-03 00:17
PROVIDERS: ADMIT Internal Medicine; ATTEND Internal Medicine
DX: R11.2 Nausea with vomiting, unspecified (principal); E87.2 Acidosis; E86.0 Dehydration; E86.1 Hypovolemia; E78.5 Hyperlipidemia, unspecified; F03.90 Unspecified dementia, unspecified severity, without behavioral disturbance, psychotic disturbance, mood disturbance, and anxiety; H91.90 Unspecified hearing loss, unspecified ear; M06.9 Rheumatoid arthritis, unspecified; M19.90 Unspecified osteoarthritis, unspecified site; K21.9 Gastro-esophageal reflux disease without esophagitis; J44.9 Chronic obstructive pulmonary disease, unspecified; K76.9 Liver disease, unspecified; Z87.11 Personal history of peptic ulcer disease; Z87.01 Personal history of pneumonia (recurrent); Z79.899 Other long term (current) drug therapy; Z88.5 Allergy status to narcotic agent
CPT/HCPCS: 96361 ×7; 96360 ×2; 99285 ×2; 36415; 93005; 80053; 82550; 82553; 83605 ×2; 83735; 84484; 85025; 85610; 85730; 81001; 87502; 71046; 74018; G0378

== ENCOUNTER 2017-09-10 13:53 | Emergency (ER) | payer MEDICARE ==
[2017-09-10] MEDS ORDERED: SODIUM CHLORIDE 0.9% 1,000 ML IV STA (14:14)
[2017-09-10] MEDS ORDERED: ONDANSETRON 4 MG/2 ML VIAL IVP STA (14:15)
[2017-09-10] MEDS ORDERED: RX INFO: IV CONTRAST WAS GIVEN 1 EACH MISC MISCELLANE PRN (14:15)
[2017-09-10] MEDS ORDERED: FAMOTIDINE 20 MG/2 ML VIAL IV STA (14:15)
--- NOTE | 2017-09-10 14:20 | ED ---
General Adult HPI - General Chief complaint: Nausea/Vomiting/Diarrhea Stated complaint: Nausea/Vomiting Time Seen by Provider: 09/10/17 14:07 Source: EMS, RN notes reviewed Mode of arrival: EMS Limitations: no limitations - History of Present Illness Initial comments: 86 yo female presents to the ER with cc of N/V and epigastric abdominal pain. Patient states this started this morning. It is in the center of the abdomen like a pressure. She states she had 3 episode of nausea vomiting. There is no black or blood noticed to the vomiting or coffee-ground like emesis. She states that her abdomen is feeling better at this time. She does have history of ulcers. She was admitted about a week ago for dehydration. Family was concerned because they state when she woke up she stated that she felt lightheaded and she seemed to be walking a little different and they state that she's been having some weakness. They deny any other symptoms at this time. Patient denies any chest pain or shortness of breath or diaphoresis with this. Patient denies any recent fever, chills, shortness of breath, chest pain, back pain, numbness or tingling, dysuria or hematuria, constipation or diarrhea, headaches or visual changes, or any other current symptoms. - Related Data Home Medications Medication Instructions Recorded Confirmed Rosuvastatin [Crestor] 20 mg PO DAILY 05/30/14 09/10/17 Calcium Carbonate/Vitamin D3 1 tab PO DAILY 09/03/17 09/10/17 [Calcium 600-Vit D3 400 Tablet] Rivastigmine [Exelon 13.3MG/24Hr 1 patch TRANSDERM Q24HR 09/03/17 09/10/17 Patch] Zoledronic Acid/Mannitol-Water 5 mg IV Q365D 09/03/17 09/10/17 [Reclast 5 mg/100 ml Solution] Previous Rx's Medication Instructions Recorded Omeprazole 20 mg PO DAILY #14 capsule. 11/21/16 Ondansetron Odt [Zofran ODT] 4 mg PO Q8HR PRN #10 tab 12/02/16 Allergies Allergy/AdvReac Type Severity Reaction Status Date / Time codeine AdvReac Unknown Rapid Verified 09/10/17 14:17 Heart Rate Review of Systems ROS Statement: Those systems with pertinent positive or pertinent negative responses have been documented in the HPI. ROS Other: All systems not noted in ROS Statement are negative. Past Medical History Past Medical History: Chest Pain / Angina, COPD, GERD/Reflux, Hearing Disorder / Deafness, Hyperlipidemia, Liver Disease, Osteoarthritis (OA), Pneumonia Additional Past Medical History / Comment(s): RA. 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 History of Any Multi-Drug Resistant Organisms: None Reported Past Surgical History: Appendectomy, Hernia Repair, Hysterectomy Additional Past Surgical History / Comment(s): RT ING HERNIA 05/30/14. Past Anesthesia/Blood Transfusion Reactions: No Reported Reaction Past Psychological History: No Psychological Hx Reported Smoking Status: Never smoker Past Alcohol Use History: None Reported Past Drug Use History: None Reported General Exam - General Exam Comments Initial Comments: General: The patient is awake and alert, in no distress, and does not appear acutely ill. Eye: Pupils are equal, round and reactive to light, extra-ocular movements are intact; there is normal conjunctiva bilaterally. No signs of icterus. Ears, nose, mouth and throat: There are moist mucous membranes. Neck: The neck is supple, there is no tenderness. Cardiovascular: There is a regular rate and rhythm. No murmur, rub or gallop is appreciated. Respiratory: Lungs are clear to auscultation, respirations are non-labored, breath sounds are equal. No wheezes, stridor, rales, or rhonchi. Gastrointestinal: Soft, non-distended, non-tender abdomen without masses or organomegaly noted. There is no rebound or guarding present. No CVA tenderness. Bowel sounds are unremarkable. Back: There is no tenderness to palpation in the midline. There is no obvious deformity. No rashes noted. Musculoskeletal: Normal ROM, no tenderness, There is no pedal edema. There is no calf tenderness or swelling. Sensation intact. Pulses equal bilaterally 2+. Neurological: CN II-XII intact, There are no obvious motor or sensory deficits. Coordination appears grossly intact. Speech is normal. Skin: Skin is warm and dry and no rashes or lesions are noted. Psychiatric: Cooperative, appropriate mood & affect, normal judgment. Limitations: no limitations Course Vital Signs 09/10/17 09/10/17 14:01 14:46 Temperature 98.9 F Pulse Rate 65 64 Respiratory 18 18 Rate Blood Pressure 180/82 161/81 O2 Sat by Pulse 99 99 Oximetry EKG Findings - EKG Comments: EKG Findings:: normal sinus rhythm 63 bpm, left axis deviation, no atopy, no S- T depressions or elevations, Medical Decision Making - Medical Decision Making 86-year-old female presents for nausea vomiting and abdominal pain. At this time patient has been pain-free here with no nausea or vomiting. Patient states she's feeling much better. At this time we discussed admission with family. They state that he would like to take her home since she is feeling better. We did discuss that her labwork at this time does appear to be stable. We discussed the importance of fluids at home. We discussed return parameters and follow-up and all questions. They state understood they are comfortable with discharge. All questions have been answered. - Lab Data Result diagrams: 09/10/17 14:24 09/10/17 15:30 Lab Results 09/10/17 09/10/17 09/10/17 Range/Units 14:24 14:24 14:24 WBC 8.0 (3.8-10.6) k/uL RBC 4.60 (3.80-5.40) m/uL Hgb 13.3 (11.4-16.0) gm/dL Hct 40.6 (34.0-46.0) % MCV 88.3 (80.0-100.0) fL MCH 28.9 (25.0-35.0) pg MCHC 32.8 (31.0-37.0) g/dL RDW 13.7 (11.5-15.5) % Plt Count 221 (150-450) k/uL Neutrophils % 74 % Lymphocytes % 19 % Monocytes % 5 % Eosinophils % 1 % Basophils % 0 % Neutrophils # 5.9 (1.3-7.7) k/uL Lymphocytes # 1.5 (1.0-4.8) k/uL Monocytes # 0.4 (0-1.0) k/uL Eosinophils # 0.1 (0-0.7) k/uL Basophils # 0.0 (0-0.2) k/uL PT (9.0-12.0) sec INR (<1.2) APTT (22.0-30.0) sec Sodium (137-145) mmol/L Potassium (3.5-5.1) mmol/L Chloride (98-107) mmol/L Carbon Dioxide (22-30) mmol/L Anion Gap mmol/L BUN (7-17) mg/dL Creatinine (0.52-1.04) mg/dL Est GFR (CKD-EPI)AfAm (>60 ml/min/1.73 sqM) Est GFR (CKD-EPI)NonAf (>60 ml/min/1.73 sqM) Glucose (74-99) mg/dL Plasma Lactic Acid Jesus 1.4 (0.7-2.0) mmol/L Calcium (8.4-10.2) mg/dL Magnesium (1.6-2.3) mg/dL Total Bilirubin (0.2-1.3) mg/dL AST (14-36) U/L ALT (9-52) U/L Alkaline Phosphatase (38-126) U/L Total Creatine Kinase (30-135) U/L CK-MB (CK-2) (0.0-2.4) ng/mL CK-MB (CK-2) Rel Index Troponin I (0.000-0.034) ng/mL NT-Pro-B Natriuret Pep 249 pg/mL Total Protein (6.3-8.2) g/dL Albumin (3.5-5.0) g/dL Amylase (30-110) U/L Lipase (23-300) U/L Urine Color Urine Appearance (Clear) Urine pH (5.0-8.0) Ur Specific [place] (1.001-1.035) Urine Protein (Negative) Urine Glucose (UA) (Negative) Urine Ketones (Negative) Urine Blood (Negative) Urine Nitrite (Negative) Urine Bilirubin (Negative) Urine Urobilinogen (<2.0) mg/dL Ur Leukocyte Esterase (Negative) Urine RBC (0-5) /hpf Urine WBC (0-5) /hpf Ur Squamous Epith Cells (0-4) /hpf Urine Mucus (None) /hpf 09/10/17 09/10/17 09/10/17 Range/Units 14:40 15:30 15:30 WBC (3.8-10.6) k/uL RBC (3.80-5.40) m/uL Hgb (11.4-16.0) gm/dL Hct (34.0-46.0) % MCV (80.0-100.0) fL MCH (25.0-35.0) pg MCHC (31.0-37.0) g/dL RDW (11.5-15.5) % Plt Count (150-450) k/uL Neutrophils % % Lymphocytes % % Monocytes % % Eosinophils % % Basophils % % Neutrophils # (1.3-7.7) k/uL Lymphocytes # (1.0-4.8) k/uL Monocytes # (0-1.0) k/uL Eosinophils # (0-0.7) k/uL Basophils # (0-0.2) k/uL PT 10.8 (9.0-12.0) sec INR 1.1 (<1.2) APTT 24.5 (22.0-30.0) sec Sodium (137-145) mmol/L Potassium (3.5-5.1) mmol/L Chloride (98-107) mmol/L Carbon Dioxide (22-30) mmol/L Anion Gap mmol/L BUN (7-17) mg/dL Creatinine (0.52-1.04) mg/dL Est GFR (CKD-EPI)AfAm (>60 ml/min/1.73 sqM) Est GFR (CKD-EPI)NonAf (>60 ml/min/1.73 sqM) Glucose (74-99) mg/dL Plasma Lactic Acid Jesus (0.7-2.0) mmol/L Calcium (8.4-10.2) mg/dL Magnesium (1.6-2.3) mg/dL Total Bilirubin (0.2-1.3) mg/dL AST (14-36) U/L ALT (9-52) U/L Alkaline Phosphatase (38-126) U/L Total Creatine Kinase 40 (30-135) U/L CK-MB (CK-2) 0.6 (0.0-2.4) ng/mL CK-MB (CK-2) Rel Index 1.5 Troponin I <0.012 (0.000-0.034) ng/mL NT-Pro-B Natriuret Pep pg/mL Total Protein (6.3-8.2) g/dL Albumin (3.5-5.0) g/dL Amylase (30-110) U/L Lipase (23-300) U/L Urine Color Light Yellow Urine Appearance Cloudy H (Clear) Urine pH 8.0 (5.0-8.0) Ur Specific [place] 1.011 (1.001-1.035) Urine Protein Negative (Negative) Urine Glucose (UA) Negative (Negative) Urine Ketones Negative (Negative) Urine Blood Negative (Negative) Urine Nitrite Negative (Negative) Urine Bilirubin Negative (Negative) Urine Urobilinogen <2.0 (<2.0) mg/dL Ur Leukocyte Esterase Moderate H (Negative) Urine RBC 1 (0-5) /hpf Urine WBC 4 (0-5) /hpf Ur Squamous Epith Cells 2 (0-4) /hpf Urine Mucus Rare H (None) /hpf 09/10/17 Range/Units 15:30 WBC (3.8-10.6) k/uL RBC (3.80-5.40) m/uL Hgb (11.4-16.0) gm/dL Hct (34.0-46.0) % MCV (80.0-100.0) fL MCH (25.0-35.0) pg MCHC (31.0-37.0) g/dL RDW (11.5-15.5) % Plt Count (150-450) k/uL Neutrophils % % Lymphocytes % % Monocytes % % Eosinophils % % Basophils % % Neutrophils # (1.3-7.7) k/uL Lymphocytes # (1.0-4.8) k/uL Monocytes # (0-1.0) k/uL Eosinophils # (0-0.7) k/uL Basophils # (0-0.2) k/uL PT (9.0-12.0) sec INR (<1.2) APTT (22.0-30.0) sec Sodium 145 (137-145) mmol/L Potassium 4.3 (3.5-5.1) mmol/L Chloride 110 H (98-107) mmol/L Carbon Dioxide 22 (22-30) mmol/L Anion Gap 13 mmol/L BUN 15 (7-17) mg/dL Creatinine 0.70 (0.52-1.04) mg/dL Est GFR (CKD-EPI)AfAm >90 (>60 ml/min/1.73 sqM) Est GFR (CKD-EPI)NonAf 79 (>60 ml/min/1.73 sqM) Glucose 80 (74-99) mg/dL Plasma Lactic Acid Jesus (0.7-2.0) mmol/L Calcium 9.6 (8.4-10.2) mg/dL Magnesium 1.7 (1.6-2.3) mg/dL Total Bilirubin 0.7 (0.2-1.3) mg/dL AST 18 (14-36) U/L ALT 19 (9-52) U/L Alkaline Phosphatase 45 (38-126) U/L Total Creatine Kinase (30-135) U/L CK-MB (CK-2) (0.0-2.4) ng/mL CK-MB (CK-2) Rel Index Troponin I (0.000-0.034) ng/mL NT-Pro-B Natriuret Pep pg/mL Total Protein 6.9 (6.3-8.2) g/dL Albumin 3.6 (3.5-5.0) g/dL Amylase 58 (30-110) U/L Lipase 115 (23-300) U/L Urine Color Urine Appearance (Clear) Urine pH (5.0-8.0) Ur Specific [place] (1.001-1.035) Urine Protein (Negative) Urine Glucose (UA) (Negative) Urine Ketones (Negative) Urine Blood (Negative) Urine Nitrite (Negative) Urine Bilirubin (Negative) Urine Urobilinogen (<2.0) mg/dL Ur Leukocyte Esterase (Negative) Urine RBC (0-5) /hpf Urine WBC (0-5) /hpf Ur Squamous Epith Cells (0-4) /hpf Urine Mucus (None) /hpf - Radiology Data Radiology results: report reviewed, image reviewed Disposition Clinical Impression: Nausea & vomiting Disposition: HOME SELF-CARE Condition: Stable Instructions: Acute Nausea and Vomiting (ED) Additional Instructions: Please use medication as discussed. Please follow up with family doctor if symptoms have not improved over the next two days. Please return to the emergency room if your symptoms increase or worsen or for any other concerns. Referrals: Sabrina Quinones MD [Primary Care Provider] - 1-2 days Time of Disposition: 17:25
[2017-09-10 14:45] LABS: Basophils % (A) 0 %; Eosinophils # (A) 0.1 k/uL (0-0.7); Eosinophils % (A) 1 %; HCT 40.6 % (34.0-46.0); HGB 13.3 gm/dL (11.4-16.0); Lymphocytes # (A) 1.5 k/uL (1.0-4.8); Lymphocytes % (A) 19 %; MCH 28.9 pg (25.0-35.0); MCHC 32.8 g/dL (31.0-37.0); MCV 88.3 fL (80.0-100.0); Mean Platelet Volume 9.4; Monocytes # (A) 0.4 k/uL (0-1.0); Monocytes % (A) 5 %; Neutrophils # (A) 5.9 k/uL (1.3-7.7); Neutrophils % (A) 74 %; Platelet Count 221 k/uL (150-450); RDW 13.7 % (11.5-15.5)
[2017-09-10 15:05] LABS: Appearance,Urine Cloudy (Clear); Bilirubin,Urine Negative (Negative); Blood,Urine Negative (Negative); Color,Urine Light Yellow; Glucose,Urine (UA) Negative (Negative); Ketones,Urine Negative (Negative); Leukocyte Esterase,Urine Moderate (Negative); Mucus,Urine Rare /hpf; Nitrite,Urine Negative (Negative); Protein,Urine Negative (Negative); RBC,Urine 1 /hpf (0-5); Specific Gravity,Urine 1.011 (1.001-1.035); Squamous Epithelial Cell,Urine 2 /hpf (0-4); Urobilinogen,Urine <2.0 mg/dL (<2.0); WBC,Urine 4 /hpf (0-5)
--- NOTE | 2017-09-10 15:13 | XR ---
EXAMINATION TYPE: XR chest 2V DATE OF EXAM: 09/10/2017 COMPARISON: Prior chest 09/02/2017 HISTORY: Chest pain TECHNIQUE: Frontal and lateral views of the chest are obtained. FINDINGS: There is no focal air space opacity, pleural effusion, or pneumothorax seen. The cardiac silhouette size is within normal limits. There are overlying cardiac leads and the patient is rotate d. The aorta is dense. The osseous structures are intact. IMPRESSION: No acute cardiopulmonary process.
[2017-09-10 16:00] LABS: INR 1.1 (<1.2); Partial Thromboplastin Time 24.5 sec (22.0-30.0); Prothrombin Time 10.8 sec (9.0-12.0)
[2017-09-10 16:04] LABS: Creatine Kinase 40 U/L (30-135)
[2017-09-10 16:08] LABS: ALT 19 U/L (9-52); AST 18 U/L (14-36); Albumin 3.6 g/dL (3.5-5.0); Alkaline Phosphatase 45 U/L (38-126); Amylase 58 U/L (30-110); Anion Gap 13 mmol/L; Blood Urea Nitrogen 15 mg/dL (7-17); Calcium 9.6 mg/dL (8.4-10.2); Carbon Dioxide 22 mmol/L (22-30); Chloride 110 mmol/L (98-107); Glucose 80 mg/dL (74-99); Lipase 115 U/L (23-300); Magnesium 1.7 mg/dL (1.6-2.3); Potassium 4.3 mmol/L (3.5-5.1); Sodium 145 mmol/L (137-145); Total Bilirubin 0.7 mg/dL (0.2-1.3); Total Protein 6.9 g/dL (6.3-8.2)
[2017-09-10 16:16] LABS: Creatine Kinase MB 0.6 ng/mL (0.0-2.4); Troponin I <0.012 ng/mL (0.000-0.034)
--- NOTE | 2017-09-10 17:10 | CT ---
EXAMINATION TYPE: CT abdomen pelvis w con DATE OF EXAM: 09/10/2017 COMPARISON: 12/05/2016 HISTORY: Epigastric pain, nausea and vomiting. CT DLP: 526.6 mGycm Automated exposure control for dose reduction was used. TECHNIQUE: Helical acquisition of images was performed from the lung bases through the pelvis. CONTRAST: Performed without Oral Contrast and with IV Contrast, patient injected with 100ml mL of Isovue M300. FINDINGS: There is mild linear density at the right posterior lung base. There is no pleural effusion. There is no pericardial effusion. There is a 1 cm cyst in the left lobe of the liver. Bile ducts are not dilated. Liver shows shows no evidence of a solid mass. Gallbladder has normal size. Spleen and pancreas appear normal. There is no adrenal mass. There is 1.5 cm cortical cyst on the upper pole right kidney. There is 2 cm cortical cyst on the lateral right kidney. There is no hydronephrosis. There is no sign of retroperi toneal adenopathy. There is no ascites. Bladder distends smoothly. I see no intestinal wall thickenin g. There are no dilated loops. There is no sign of appendicitis. There are spondylotic changes in the lumbar spine. There is a degenerative first degree L4-5 spondylolisthesis. There is moderately sever e L4-5 bony spinal stenosis. There is also less severe spinal stenosis at L3-4. There is hypertrophic degenerative changes in both hip joints with acetabular spurring and femoral head spur formation. Th ere is a slight lumbar levoscoliosis. There is a small hiatal hernia. IMPRESSION: MINIMAL SCARRING OR SUBSEGMENTAL ATELECTASIS AT THE RIGHT LUNG BASE. SMALL HIATAL HERNIA. ATHEROSCLER OTIC VASCULAR DISEASE. RENAL AND HEPATIC CYSTS. LUMBAR SPINAL STENOSIS. NO SIGN OF ACUTE ABDOMEN AND PELVIS. NO ADVERSE CHANGE COMPARED TO OLD EXAM.
[2017-09-10 17:42] VITALS: BP 164/73; PULSE 67; RESP 16; TEMP 97.6
== END 2017-09-10 18:02 | disposition home or self-care (01) ==
LOC: EC 13:53
DX: R11.2 Nausea with vomiting, unspecified (principal); R10.13 Epigastric pain; E78.5 Hyperlipidemia, unspecified; Z90.49 Acquired absence of other specified parts of digestive tract; Z79.899 Other long term (current) drug therapy; Z88.5 Allergy status to narcotic agent
CPT/HCPCS: 36415; 93005; 83880; 80053; 82150; 82550; 82553; 83605; 83690; 83735; 84484; 85025; 85610; 85730; 81001; 87040; 87086; 71046; 74177; 99285; 96374; 96375; 96361; J2405; Q9967

== ENCOUNTER 2018-05-01 15:40 | Emergency (ER) | payer MEDICARE ==
[2018-05-01 16:26] VITALS: BP 135/86; PULSE 82; RESP 16
[2018-05-01 16:27] VITALS: TEMP 98.2
[2018-05-01 17:11] LABS: Basophils % (A) 0 %; Eosinophils # (A) 0.2 k/uL (0-0.7); Eosinophils % (A) 2 %; HCT 36.9 % (34.0-46.0); HGB 12.4 gm/dL (11.4-16.0); Lymphocytes # (A) 2.3 k/uL (1.0-4.8); Lymphocytes % (A) 26 %; MCH 30.3 pg (25.0-35.0); MCHC 33.7 g/dL (31.0-37.0); Mean Platelet Volume 7.5; Monocytes # (A) 0.6 k/uL (0-1.0); Monocytes % (A) 7 %; Neutrophils # (A) 5.4 k/uL (1.3-7.7); Neutrophils % (A) 63 %; Platelet Count 220 k/uL (150-450); RDW 14.2 % (11.5-15.5); WBC 8.7 k/uL (3.8-10.6)
--- NOTE | 2018-05-01 17:15 | ED ---
General Adult HPI - General Chief complaint: Abdominal Pain Stated complaint: Abdominal pain, trouble urinating Time Seen by Provider: 05/01/18 16:57 Source: patient, RN notes reviewed Mode of arrival: ambulatory Limitations: no limitations - History of Present Illness Initial comments: Patient's a 87-year-old female presented to the emergency room today with a chief complaint of some bloating and difficulty urinating. Patient has a history of a prolapsed uterus is scheduled see a surgeon in the next 2 days. Patient is currently complaint free. Son at bedside states that earlier today his who helps take care of his mother stated that she might. Heparin was more full and bloated. States it seemed like she was having a difficult time with urination. Patient denies any complaints. States her abdomen feels fine. States appetites been well. Patient denies any recent fever, chills, shortness of breath, chest pain, back pain, abdominal pain, nausea or vomiting, numbness or tingling, dysuria or hematuria, constipation or diarrhea, headaches or visual changes, or any other complaints. - Related Data Previous Rx's Medication Instructions Recorded Nitrofurantoin Monohyd/M-Cryst 100 mg PO Q12HR #14 cap 05/01/18 [Macrobid] Allergies Allergy/AdvReac Type Severity Reaction Status Date / Time codeine AdvReac Unknown Rapid Verified 05/01/18 17:28 Heart Rate Review of Systems ROS Statement: Those systems with pertinent positive or pertinent negative responses have been documented in the HPI. ROS Other: All systems not noted in ROS Statement are negative. Past Medical History Past Medical History: Chest Pain / Angina, COPD, GERD/Reflux, Hearing Disorder / Deafness, Hyperlipidemia, Liver Disease, Osteoarthritis (OA), Pneumonia Additional Past Medical History / Comment(s): RA. 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 History of Any Multi-Drug Resistant Organisms: None Reported Past Surgical History: Appendectomy, Hernia Repair, Hysterectomy Additional Past Surgical History / Comment(s): RT ING HERNIA 05/30/14. Past Anesthesia/Blood Transfusion Reactions: No Reported Reaction Past Psychological History: No Psychological Hx Reported Smoking Status: Never smoker Past Alcohol Use History: None Reported Past Drug Use History: None Reported General Exam - General Exam Comments Initial Comments: General: The patient is awake and alert, in no distress, and does not appear acutely ill. Eye: There is normal conjunctiva bilaterally. No signs of icterus. Ears, nose, mouth and throat: There are moist mucous membranes and no oral lesions. Neck: The neck is supple, there is no tenderness or JVD. Cardiovascular: There is a regular rate and rhythm. No murmur, rub or gallop is appreciated. Respiratory: Lungs are clear to auscultation, respirations are non-labored, breath sounds are equal. No wheezes, stridor, rales, or rhonchi. Gastrointestinal: Abdomen soft on palpation. No guarding, no rebound. Left- sided CVA tenderness. Musculoskeletal: Normal ROM, no tenderness. Sensation intact. Strength 5/5. Pulses equal bilaterally 2+. Neurological: A&O x 3. CN II-XII intact, There are no obvious motor or sensory deficits. Coordination appears grossly intact. Speech is normal. Skin: Skin is warm and dry and no rashes or lesions are noted. Psychiatric: Cooperative, appropriate mood & affect, normal judgment. Limitations: no limitations Course Vital Signs 05/01/18 05/01/18 16:21 16:27 Temperature 98.2 F Pulse Rate 82 Respiratory 16 Rate Blood Pressure 135/86 O2 Sat by Pulse 98 Oximetry Medical Decision Making - Medical Decision Making Patient reexamined at this time shows no signs of distress. Patient's been asymptomatic here in the emergency room. Urinalysis was performed and show positive nitrate with leukocyte esterase. Patient will be started on antibiotics. Urine culture is pending. Patient's abdomen soft nontender. Vitals are stable. Labs are unremarkable. Patient be discharged home to follow -up the family doctor. Advised return if any symptoms increase or worsen. - Lab Data Result diagrams: 05/01/18 16:45 05/01/18 16:45 Lab Results 05/01/18 05/01/18 05/01/18 Range/Units 16:45 16:45 18:40 WBC 8.7 (3.8-10.6) k/uL RBC 4.10 (3.80-5.40) m/uL Hgb 12.4 (11.4-16.0) gm/dL Hct 36.9 (34.0-46.0) % MCV 90.0 (80.0-100.0) fL MCH 30.3 (25.0-35.0) pg MCHC 33.7 (31.0-37.0) g/dL RDW 14.2 (11.5-15.5) % Plt Count 220 (150-450) k/uL Neutrophils % 63 % Lymphocytes % 26 % Monocytes % 7 % Eosinophils % 2 % Basophils % 0 % Neutrophils # 5.4 (1.3-7.7) k/uL Lymphocytes # 2.3 (1.0-4.8) k/uL Monocytes # 0.6 (0-1.0) k/uL Eosinophils # 0.2 (0-0.7) k/uL Basophils # 0.0 (0-0.2) k/uL Sodium 141 (137-145) mmol/L Potassium 4.7 (3.5-5.1) mmol/L Chloride 108 H (98-107) mmol/L Carbon Dioxide 27 (22-30) mmol/L Anion Gap 6 mmol/L BUN 29 H (7-17) mg/dL Creatinine 0.74 (0.52-1.04) mg/dL Est GFR (CKD-EPI)AfAm 86 (>60 ml/min/1.73 sqM) Est GFR (CKD-EPI)NonAf 74 (>60 ml/min/1.73 sqM) Glucose 94 (74-99) mg/dL Calcium 9.9 (8.4-10.2) mg/dL Total Bilirubin 0.2 (0.2-1.3) mg/dL AST 20 (14-36) U/L ALT 14 (9-52) U/L Alkaline Phosphatase 48 (38-126) U/L Total Protein 7.5 (6.3-8.2) g/dL Albumin 3.9 (3.5-5.0) g/dL Amylase 76 (30-110) U/L Lipase 163 (23-300) U/L Urine Color Light Yellow Urine Appearance Cloudy H (Clear) Urine pH 6.5 (5.0-8.0) Ur Specific [place] 1.015 (1.001-1.035) Urine Protein Negative (Negative) Urine Glucose (UA) Negative (Negative) Urine Ketones Negative (Negative) Urine Blood Trace H (Negative) Urine Nitrite Positive H (Negative) Urine Bilirubin Negative (Negative) Urine Urobilinogen <2.0 (<2.0) mg/dL Ur Leukocyte Esterase Small H (Negative) Urine RBC 4 (0-5) /hpf Urine WBC 5 (0-5) /hpf Ur Squamous Epith Cells 2 (0-4) /hpf Urine Bacteria Rare H (None) /hpf Urine Mucus Rare H (None) /hpf Disposition Clinical Impression: UTI (urinary tract infection) Disposition: HOME SELF-CARE Condition: Good Instructions: Urinary Tract Infection in Women (ED) Additional Instructions: Please use medication as discussed. Please follow-up with family doctor in the next 2 days of symptoms have not improved. Please return to emergency room if the symptoms increase or worsen or for any other concerns. Prescriptions: Nitrofurantoin Monohyd/M-Cryst [Macrobid] 100 mg PO Q12HR #14 cap Is patient prescribed a controlled substance at d/c from ED?: No Referrals: Sabrina Quinones MD [Primary Care Provider] - 1-2 days Time of Disposition: 19:14
[2018-05-01 17:21] LABS: Albumin 3.9 g/dL (3.5-5.0); Calcium 9.9 mg/dL (8.4-10.2); Potassium 4.7 mmol/L (3.5-5.1); Total Bilirubin 0.2 mg/dL (0.2-1.3); Total Protein 7.5 g/dL (6.3-8.2)
[2018-05-01 18:58] LABS: Appearance,Urine Cloudy (Clear); Bacteria,Urine Rare /hpf; Bilirubin,Urine Negative (Negative); Blood,Urine Trace (Negative); Color,Urine Light Yellow; Glucose,Urine (UA) Negative (Negative); Ketones,Urine Negative (Negative); Leukocyte Esterase,Urine Small (Negative); Mucus,Urine Rare /hpf; Nitrite,Urine Positive (Negative); PH, Urine 6.5 (5.0-8.0); Protein,Urine Negative (Negative); RBC,Urine 4 /hpf (0-5); Specific Gravity,Urine 1.015 (1.001-1.035); Squamous Epithelial Cell,Urine 2 /hpf (0-4); Urobilinogen,Urine <2.0 mg/dL (<2.0); WBC,Urine 5 /hpf (0-5)
== END 2018-05-01 20:04 | disposition home or self-care (01) ==
LOC: EC 15:40
DX: N39.0 Urinary tract infection, site not specified (principal); R14.0 Abdominal distension (gaseous); H91.90 Unspecified hearing loss, unspecified ear; Z88.5 Allergy status to narcotic agent; Z90.49 Acquired absence of other specified parts of digestive tract
CPT/HCPCS: 36415; 80053; 81001; 82150; 83690; 85025; 87077; 87086; 87186; 99284

== ENCOUNTER 2018-05-21 11:45 | Inpatient (IN) | payer MEDICARE ==
[2018-05-21] MEDS ORDERED: IBUPROFEN IV 600 MG in SODIUM CHLORIDE 0.9% 250 ML IV STA (12:36)
[2018-05-21] MEDS ORDERED: ACETAMINOPHEN TAB 500 MG TAB PO STA (12:36)
--- NOTE | 2018-05-21 12:42 | ED ---
General Adult HPI - General Chief complaint: Headache Stated complaint: HEAD AND NECK PAIN Time Seen by Provider: 05/21/18 12:00 Source: patient, family, RN notes reviewed Mode of arrival: wheelchair Limitations: no limitations - History of Present Illness Initial comments: This is an 87-year-old female presents emergency Department complaining of a headache and trapezius muscle tenderness. Patient states this started this morning when she woke up. Son states she's also been more confused. Son states she is also weaker than normal. Patient denies knowing of any fever chills however when I took her temperature during my interview she was 101.2. Patient denies any chest pain difficulty breathing shortness of breath per patient denies any abdominal pain patient does complain of a dry cough however. Patient also states she has had multiple urinary tract infections in the past. Patient denies any back pain. Patient denies any recent injury or trauma - Related Data Home Medications Medication Instructions Recorded Confirmed Escitalopram [Lexapro] 5 mg PO DAILY 05/21/18 05/21/18 Mirtazapine [Remeron] 15 mg PO HS 05/21/18 05/21/18 Rosuvastatin [Crestor] 20 mg PO DAILY 05/21/18 05/21/18 Allergies Allergy/AdvReac Type Severity Reaction Status Date / Time codeine AdvReac Unknown Rapid Verified 05/21/18 12:07 Heart Rate Review of Systems ROS Statement: Those systems with pertinent positive or pertinent negative responses have been documented in the HPI. ROS Other: All systems not noted in ROS Statement are negative. Past Medical History Past Medical History: Chest Pain / Angina, COPD, GERD/Reflux, Hearing Disorder / Deafness, Hyperlipidemia, Liver Disease, Osteoarthritis (OA), Pneumonia Additional Past Medical History / Comment(s): RA. 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 History of Any Multi-Drug Resistant Organisms: None Reported Past Surgical History: Appendectomy, Hernia Repair, Hysterectomy Additional Past Surgical History / Comment(s): RT ING HERNIA 05/30/14. Past Anesthesia/Blood Transfusion Reactions: No Reported Reaction Past Psychological History: No Psychological Hx Reported Smoking Status: Never smoker Past Alcohol Use History: None Reported Past Drug Use History: None Reported General Exam - General Exam Comments Initial Comments: GENERAL: Patient is well-developed and well-nourished. Patient is nontoxic and well- hydrated and is in mild distress. ENT: Neck is soft and supple. No significant lymphadenopathy is noted. Oropharynx is clear. Moist mucous membranes. EYES: The sclera were anicteric and conjunctiva were pink and moist. Extraocular movements were intact and pupils were equal round and reactive to light. Eyelids were unremarkable. PULMONARY: Unlabored respirations. Good breath sounds bilaterally. No audible rales rhonchi or wheezing was noted. CARDIOVASCULAR: There is a regular rate and rhythm without any murmurs gallops or rubs. ABDOMEN: Soft and nontender with normal bowel sounds. No palpable organomegaly was noted. There is no palpable pulsatile mass. SKIN: Skin is clear with no lesions or rashes and otherwise unremarkable. NEUROLOGIC: Patient is alert and oriented 2. Cranial nerves II through XII are grossly intact. Motor and sensory are also intact. Normal speech, volume and content. Symmetrical smile. MUSCULOSKELETAL: Normal extremities with adequate strength and full range of motion. Patient has some trapezius muscle tenderness on the left. Patient has difficulty turning to the left cousin the pain in her trapezius muscle. Patient has no problem turning to the right. Patient does have good flexion and extension LYMPHATICS: No significant lymphadenopathy is noted PSYCHIATRIC: Normal psychiatric evaluation. Normal interpersonal interactions appears functionally intact in deals appropriately with others. No signs of depression. No signs of anxiety. Limitations: no limitations Course Vital Signs 05/21/18 05/21/18 05/21/18 11:46 12:35 13:00 Temperature 98.4 F 101.2 F H Pulse Rate 79 67 Respiratory 20 19 Rate Blood Pressure 148/81 124/82 O2 Sat by Pulse 97 99 Oximetry 05/21/18 05/21/18 13:30 14:00 Temperature Pulse Rate 71 78 Respiratory 20 20 Rate Blood Pressure 155/78 150/79 O2 Sat by Pulse 97 97 Oximetry Medical Decision Making - Medical Decision Making EKG shows normal sinus rhythm at 60 bpm WA interval is on a 58 QRS 74 Q-T intervals 412 QTC is 438 per patient's EKG shows no ST segment elevation or depression or T wave abnormalities are noted. Chest x-ray shows a new small pleural effusion with a infiltrate. I started the patient on Rocephin I counseled with Dr. Lynn admitted the patient I continued the Rocephin and added Zithromax on the floor. - Lab Data Result diagrams: 05/21/18 12:15 12/06/18 12:15 Lab Results 05/21/1818 05/21/18 Range/Units 12:15 12:15 12:15 WBC 10.7 H (3.8-10.6) k/uL RBC 4.51 (3.80-5.40) m/uL Hgb 13.3 (11.4-16.0) gm/dL Hct 40.6 (34.0-46.0) % MCV 90.1 (80.0-100.0) fL MCH 29.5 (25.0-35.0) pg MCHC 32.7 (31.0-37.0) g/dL RDW 14.0 (11.5-15.5) % Plt Count 263 (150-450) k/uL Neutrophils % 78 % Lymphocytes % 13 % Monocytes % 5 % Eosinophils % 2 % Basophils % 0 % Neutrophils # 8.4 H (1.3-7.7) k/uL Lymphocytes # 1.4 (1.0-4.8) k/uL Monocytes # 0.6 (0-1.0) k/uL Eosinophils # 0.2 (0-0.7) k/uL Basophils # 0.0 (0-0.2) k/uL PT (9.0-12.0) sec INR (<1.2) APTT (22.0-30.0) sec Sodium 144 (137-145) mmol/L Potassium 4.2 (3.5-5.1) mmol/L Chloride 110 H (98-107) mmol/L Carbon Dioxide 24 (22-30) mmol/L Anion Gap 10 mmol/L BUN 20 H (7-17) mg/dL Creatinine 0.80 (0.52-1.04) mg/dL Est GFR (CKD-EPI)AfAm 77 (>60 ml/min/1.73 sqM) Est GFR (CKD-EPI)NonAf 67 (>60 ml/min/1.73 sqM) Glucose 89 (74-99) mg/dL Plasma Lactic Acid Jesus (0.7-2.0) mmol/L Calcium 9.4 (8.4-10.2) mg/dL Total Bilirubin 0.6 (0.2-1.3) mg/dL AST 18 (14-36) U/L ALT 18 (9-52) U/L Alkaline Phosphatase 44 (38-126) U/L Total Creatine Kinase 33 (30-135) U/L CK-MB (CK-2) 0.4 (0.0-2.4) ng/mL CK-MB (CK-2) Rel Index 1.2 Troponin I <0.012 (0.000-0.034) ng/mL Total Protein 7.6 (6.3-8.2) g/dL Albumin 3.9 (3.5-5.0) g/dL Urine Color Urine Appearance (Clear) Urine pH (5.0-8.0) Ur Specific [place] (1.001-1.035) Urine Protein (Negative) Urine Glucose (UA) (Negative) Urine Ketones (Negative) Urine Blood (Negative) Urine Nitrite (Negative) Urine Bilirubin (Negative) Urine Urobilinogen (<2.0) mg/dL Ur Leukocyte Esterase (Negative) Urine RBC (0-5) /hpf Urine WBC (0-5) /hpf Ur Squamous Epith Cells (0-4) /hpf Urine Mucus (None) /hpf Influenza Type A RNA (Not Detectd) Influenza Type B (PCR) (Not Detectd) 05/21/18 05/21/18 05/21/18 Range/Units 12:15 12:15 13:00 WBC (3.8-10.6) k/uL RBC (3.80-5.40) m/uL Hgb (11.4-16.0) gm/dL Hct (34.0-46.0) % MCV (80.0-100.0) fL MCH (25.0-35.0) pg MCHC (31.0-37.0) g/dL RDW (11.5-15.5) % Plt Count (150-450) k/uL Neutrophils % % Lymphocytes % % Monocytes % % Eosinophils % % Basophils % % Neutrophils # (1.3-7.7) k/uL Lymphocytes # (1.0-4.8) k/uL Monocytes # (0-1.0) k/uL Eosinophils # (0-0.7) k/uL Basophils # (0-0.2) k/uL PT 9.7 (9.0-12.0) sec INR 0.9 (<1.2) APTT 24.4 (22.0-30.0) sec Sodium (137-145) mmol/L Potassium (3.5-5.1) mmol/L Chloride (98-107) mmol/L Carbon Dioxide (22-30) mmol/L Anion Gap mmol/L BUN (7-17) mg/dL Creatinine (0.52-1.04) mg/dL Est GFR (CKD-EPI)AfAm (>60 ml/min/1.73 sqM) Est GFR (CKD-EPI)NonAf (>60 ml/min/1.73 sqM) Glucose (74-99) mg/dL Plasma Lactic Acid Jesus 1.2 (0.7-2.0) mmol/L Calcium (8.4-10.2) mg/dL Total Bilirubin (0.2-1.3) mg/dL AST (14-36) U/L ALT (9-52) U/L Alkaline Phosphatase (38-126) U/L Total Creatine Kinase (30-135) U/L CK-MB (CK-2) (0.0-2.4) ng/mL CK-MB (CK-2) Rel Index Troponin I (0.000-0.034) ng/mL Total Protein (6.3-8.2) g/dL Albumin (3.5-5.0) g/dL Urine Color Urine Appearance (Clear) Urine pH (5.0-8.0) Ur Specific [place] (1.001-1.035) Urine Protein (Negative) Urine Glucose (UA) (Negative) Urine Ketones (Negative) Urine Blood (Negative) Urine Nitrite (Negative) Urine Bilirubin (Negative) Urine Urobilinogen (<2.0) mg/dL Ur Leukocyte Esterase (Negative) Urine RBC (0-5) /hpf Urine WBC (0-5) /hpf Ur Squamous Epith Cells (0-4) /hpf Urine Mucus (None) /hpf Influenza Type A RNA Not Detected (Not Detectd) Influenza Type B (PCR) Not Detected (Not Detectd) 05/21/18 Range/Units 13:00 WBC (3.8-10.6) k/uL RBC (3.80-5.40) m/uL Hgb (11.4-16.0) gm/dL Hct (34.0-46.0) % MCV (80.0-100.0) fL MCH (25.0-35.0) pg MCHC (31.0-37.0) g/dL RDW (11.5-15.5) % Plt Count (150-450) k/uL Neutrophils % % Lymphocytes % % Monocytes % % Eosinophils % % Basophils % % Neutrophils # (1.3-7.7) k/uL Lymphocytes # (1.0-4.8) k/uL Monocytes # (0-1.0) k/uL Eosinophils # (0-0.7) k/uL Basophils # (0-0.2) k/uL PT (9.0-12.0) sec INR (<1.2) APTT (22.0-30.0) sec Sodium (137-145) mmol/L Potassium (3.5-5.1) mmol/L Chloride (98-107) mmol/L Carbon Dioxide (22-30) mmol/L Anion Gap mmol/L BUN (7-17) mg/dL Creatinine (0.52-1.04) mg/dL Est GFR (CKD-EPI)AfAm (>60 ml/min/1.73 sqM) Est GFR (CKD-EPI)NonAf (>60 ml/min/1.73 sqM) Glucose (74-99) mg/dL Plasma Lactic Acid Jesus (0.7-2.0) mmol/L Calcium (8.4-10.2) mg/dL Total Bilirubin (0.2-1.3) mg/dL AST (14-36) U/L ALT (9-52) U/L Alkaline Phosphatase (38-126) U/L Total Creatine Kinase (30-135) U/L CK-MB (CK-2) (0.0-2.4) ng/mL CK-MB (CK-2) Rel Index Troponin I (0.000-0.034) ng/mL Total Protein (6.3-8.2) g/dL Albumin (3.5-5.0) g/dL Urine Color Yellow Urine Appearance Clear (Clear) Urine pH 6.5 (5.0-8.0) Ur Specific [place] 1.013 (1.001-1.035) Urine Protein Negative (Negative) Urine Glucose (UA) Negative (Negative) Urine Ketones Negative (Negative) Urine Blood Small H (Negative) Urine Nitrite Negative (Negative) Urine Bilirubin Negative (Negative) Urine Urobilinogen <2.0 (<2.0) mg/dL Ur Leukocyte Esterase Negative (Negative) Urine RBC 5 (0-5) /hpf Urine WBC 2 (0-5) /hpf Ur Squamous Epith Cells 1 (0-4) /hpf Urine Mucus Rare H (None) /hpf Influenza Type A RNA (Not Detectd) Influenza Type B (PCR) (Not Detectd) Disposition Clinical Impression: Pneumonia, Altered mental status Disposition: ADMITTED IP TO THIS HOSP Referrals: Sabrina Quinones MD [Primary Care Provider] - 1-2 days Time of Disposition: 14:55
[2018-05-21 13:01] LABS: Basophils % (A) 0 %; Eosinophils # (A) 0.2 k/uL (0-0.7); Eosinophils % (A) 2 %; HCT 40.6 % (34.0-46.0); HGB 13.3 gm/dL (11.4-16.0); Lymphocytes # (A) 1.4 k/uL (1.0-4.8); Lymphocytes % (A) 13 %; MCH 29.5 pg (25.0-35.0); MCHC 32.7 g/dL (31.0-37.0); MCV 90.1 fL (80.0-100.0); Mean Platelet Volume 7.6; Monocytes # (A) 0.6 k/uL (0-1.0); Monocytes % (A) 5 %; Neutrophils # (A) 8.4 k/uL (1.3-7.7); Neutrophils % (A) 78 %; Platelet Count 263 k/uL (150-450); RBC 4.51 m/uL (3.80-5.40); WBC 10.7 k/uL (3.8-10.6)
[2018-05-21] MEDS: SODIUM CHLORIDE 0.9% 500 ML 500 ML IV SCH (13:04)
[2018-05-21 13:13] LABS: Albumin 3.9 g/dL (3.5-5.0); Calcium 9.4 mg/dL (8.4-10.2); INR 0.9 (<1.2); Partial Thromboplastin Time 24.4 sec (22.0-30.0); Potassium 4.2 mmol/L (3.5-5.1); Prothrombin Time 9.7 sec (9.0-12.0); Total Bilirubin 0.6 mg/dL (0.2-1.3); Total Protein 7.6 g/dL (6.3-8.2)
--- NOTE | 2018-05-21 13:24 | XR ---
EXAMINATION TYPE: XR chest 2V DATE OF EXAM: 05/21/2018 COMPARISON: 09/10/2017 HISTORY: 87-year-old female with fever TECHNIQUE: AP and lateral views FINDINGS: Heart upper limits of normal in size. Atherosclerotic arch calcifications. Mild diffuse interstitial prominence and hyperinflation. Blunting of the posterior costophrenic angle on the lateral view is ne w. Upper and mid lungs are clear. Hyperinflation. Skin fold projecting at the peripheral right upper lobe. IMPRESSION: Possible underlying COPD. New trace effusions on lateral view with adjacent atelectasis and/or consol idation.
[2018-05-21 13:34] LABS: Creatine Kinase 33 U/L (30-135)
[2018-05-21 13:46] LABS: Creatine Kinase MB 0.4 ng/mL (0.0-2.4); Troponin I <0.012 ng/mL (0.000-0.034)
[2018-05-21 13:57] LABS: Appearance,Urine Clear (Clear); Bilirubin,Urine Negative (Negative); Blood,Urine Small (Negative); Color,Urine Yellow; Glucose,Urine (UA) Negative (Negative); Ketones,Urine Negative (Negative); Leukocyte Esterase,Urine Negative (Negative); Mucus,Urine Rare /hpf; Nitrite,Urine Negative (Negative); PH, Urine 6.5 (5.0-8.0); Protein,Urine Negative (Negative); RBC,Urine 5 /hpf (0-5); Specific Gravity,Urine 1.013 (1.001-1.035); Squamous Epithelial Cell,Urine 1 /hpf (0-4); Urobilinogen,Urine <2.0 mg/dL (<2.0); WBC,Urine 2 /hpf (0-5)
[2018-05-21] MEDS ORDERED: cefTRIAXone 2,000 MG in SODIUM CHLORIDE 0.9% 100 ML IVPB STA (14:16)
[2018-05-21] MEDS ORDERED: PNEUMONIA PROTOCOL UTILIZED 1 EACH MISC PO PRN (14:55)
[2018-05-21] MEDS ORDERED: AZITHROMYCIN 500 MG in SODIUM CHLORIDE 0.9% 250 ML IVPB STA (14:55)
--- NOTE | 2018-05-21 19:30 | P.HPIM ---
History of Present Illness H&P Date: 05/21/18 Chief Complaint: Dyspnea and shortness of breath, pneumonia, occipital neuralgia , dementia 87-year-old female one of Dr. Quinones's patient with past medical history off dementia, rheumatoid arthritis, COPD and recurrent angina workup in the morning complaining of slight worsening shortness of breath along with neck pain and headache with slight worsening mental status. Patient also had low- grade temperature and increased cough with more congestion. Ended up coming to demurs department at [facility] where was seen and evaluated surprisingly chest x-ray revealed right upper lobe infiltrate in consultation, patient had moderately elevated white blood cell with mild shifted low-grade temperature with the above symptom decided to start on Rocephin and Zithromax along with Mucinex and O2 with updraft admit patient to the hospital for the above problem. Also patient had mild to moderate neck pain with severe stiffness and quite occipital neuralgia with no rash according to her does have stiffness in the neck every so often. Review of Systems CONSTITUTIONAL: Well-developed no acute respiratory distress. Has quite bit stiffness in the neck with occipital neuralgia, mild low-grade temperature. EYES: No icterus sclerae, no conjunctivitis. EARS, NOSE, MOUTH, THROAT, and FACE: No sore throat, lymphadenopathy, carotid bruits or deformity. RESPIRATORY: Shortness of breath and cough. CARDIOVASCULAR: No CP, Palpitation, PND, Orthopnea, or angina. GASTROINTESTINAL: No Abd pain, Nausea or vomiting, no Diarrhea or constipation, No GI Bleed, no distention or masses. GENITOURINARY: Negative for Hematuria or UTI, no kidney stones. INTEGUMENT/BREAST: Negative for any muscular injury with mild osteoarthritis.. HEMATOLOGIC/LYMPHATIC: Negative for bleed or purpura. MUSCULOSKELTAL: Negative for Myalgia or arthralgia. NEURLOGICAL: Mild dementia with worsening mentation. BEHAVIORAL/PSYCH: Negative. ENDOCRINE: Negative. Past Medical History Past Medical History: Chest Pain / Angina, COPD, Dementia, GERD/Reflux, Hearing Disorder / Deafness, Hyperlipidemia, Liver Disease, Osteoarthritis (OA), Pneumonia, Rheumatoid Arthritis (RA) Additional Past Medical History / Comment(s): RA. 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 prolapsed utererus, uti's, falls. per son-pt sleep walks and tries to get out of the house at night. can become combatative. pne vaccine after age 65 History of Any Multi-Drug Resistant Organisms: None Reported Past Surgical History: Appendectomy, Hernia Repair, Hysterectomy Additional Past Surgical History / Comment(s): RT ING HERNIA 05/30/14. Past Anesthesia/Blood Transfusion Reactions: No Reported Reaction Smoking Status: Never smoker - Past Family History Mother Family Medical History: Diabetes Mellitus Father Family Medical History: Cancer Additional Family Medical History / Comment(s): melanoma Medications and Allergies Home Medications Medication Instructions Recorded Confirmed Type Escitalopram [Lexapro] 5 mg PO DAILY 05/21/18 05/21/18 History Mirtazapine [Remeron] 15 mg PO HS 05/21/18 05/21/18 History Rosuvastatin [Crestor] 20 mg PO DAILY 05/21/18 05/21/18 History Allergies Allergy/AdvReac Type Severity Reaction Status Date / Time codeine AdvReac Unknown Rapid Verified 05/21/18 12:07 Heart Rate Physical Exam Vitals: Vital Signs Temp Pulse Pulse Resp BP BP Pulse Ox 05/21/18 17:30 97.0 F L 70 16 118/64 99 05/21/18 16:48 76 16 113/72 98 05/21/18 15:30 97.9 F 73 16 101/65 97 05/21/18 14:00 78 20 150/79 97 05/21/18 13:30 71 20 155/78 97 05/21/18 13:00 67 19 124/82 99 05/21/18 12:35 101.2 F H 05/21/18 11:46 98.4 F 79 20 148/81 97 Intake and Output 05/21/18 05/21/18 05/21/18 06:59 14:59 22:59 Other: Weight 52.163 kg General Appearance: Alert, cooperative, no distress, appears stated age. With quite bit stiffness in the neck Neck HEENT: Supple, no lymphadenopathy, no thyroid enlargement, no carotid bruits. Mild stiffness with full range of motion more motion with mild discomfort in the left side of the occipital area with no rash consistent with occipital neuralgia. Lungs: Clear to auscultation without crackles or wheezes positive rhonchi, no deformity. Chest Wall: Chest wall normal expansion with deep inspiration no tenderness and no deformity was found on exam, no costochondral pain or discomfort. Heart: Regular rate and rhythm, S1, S2 normal, no murmur, rub or gallop. Back: Symmetric, no curvature, ROM normal, no CVA tenderness. Abdomen: Soft, non-tender, bowel sounds active all four quadrants, no masses, no organomegaly. Extremities: Extremities normal, atraumatic, no cyanosis or edema. Pulses: 2+ and symmetric. Skin: Skin color, texture, tugor normal, no rashes or lesions. Neurologic: Alert oriented with slight confusion current and after to 12 intact positive generalized weakness no focal deficit. Significant dementia and memory loss as well.. Results CBC & Chem 7: 05/21/18 12:15 05/21/18 12:15 Labs: Abnormal Lab Results - Last 24 Hours (Table) 05/21/18 05/21/18 05/21/18 Range/Units 12:15 12:15 13:00 WBC 10.7 H (3.8-10.6) k/uL Neutrophils # 8.4 H (1.3-7.7) k/uL Chloride 110 H (98-107) mmol/L BUN 20 H (7-17) mg/dL Urine Blood Small H (Negative) Urine Mucus Rare H (None) /hpf Microbiology - Last 24 Hours (Table) 05/21/18 13:00 Urine Culture - Preliminary Urine,Voided Thrombosis Risk Factor Assmnt - Choose All That Apply Any of the Below Risk Factors Present?: No Each Risk Factor Represents 3 Points: Age 75 years or older Thrombosis Risk Factor Assessment Total Risk Factor Score: 3 Thrombosis Risk Factor Assessment Level: Moderate Risk Assessment and Plan Assessment: 1 severe dyspnea and shortness of breath: Secondary to pneumonia with higher exposure to resident and intermediate visiting her patient will be treated with Rocephin and azithromycin for now continue updraft treatment O2 repeat chest x-ray in few days. 2 severe occipital neuralgia: Patient would not be starting on any medication at this point if symptom continue for a period of time patient will be started on gabapentin down the road. 3 COPD: Continue O2 along with updraft treatment. 4 dementia: Most likely Alzheimer type has been on Remeron only and to medication. 5 hyperlipidemia: On Crestor 20 mg a day. 6 depression: On Lexapro 5 mg a day continue medication. 7 DVT prophylaxis: Patient will be on heparin subcutaneous. 8 GI prophylaxis: Patient will be on Pepcid 20 mg daily. CODE STATUS: DO NOT RESUSCITATE. Admit patient to inpatient status for 1-2 nights.
[2018-05-21] MEDS: HEPARIN SODIUM,PORCINE 5,000 UNIT/ML 1 ML VIAL SQ SCH (20:57)
[2018-05-21] MEDS: MIRTAZAPINE 15 MG TAB PO SCH (20:57)
[2018-05-22] MEDS: ACETAMINOPHEN TAB 325 MG TAB PO PRN ×2 (04:47→17:14)
[2018-05-22] MEDS: LIDOCAINE 5% PATCH TOPICAL SCH (04:48)
[2018-05-22] MEDS: AZITHROMYCIN 500 MG TAB PO SCH (08:30)
[2018-05-22] MEDS: HEPARIN SODIUM,PORCINE 5,000 UNIT/ML 1 ML VIAL SQ SCH ×2 (08:30→20:27)
[2018-05-22] MEDS: ESCITALOPRAM 5 MG TAB PO SCH (08:30)
[2018-05-22] MEDS: FAMOTIDINE 20 MG TAB PO SCH (08:30)
[2018-05-22] MEDS: ATORVASTATIN 40 MG TAB PO SCH (08:30)
[2018-05-22] MEDS: BACLOFEN 10 MG TAB PO PRN (08:36)
[2018-05-22] MEDS: GABAPENTIN 100 MG CAP PO SCH ×3 (12:16→20:28)
[2018-05-22] MEDS: traMADol 50 MG TAB PO SCH ×3 (12:16→20:28)
--- NOTE | 2018-05-22 14:24 | XR ---
EXAMINATION TYPE: XR chest 2V DATE OF EXAM: 05/22/2018 COMPARISON: 05/21/2018 TECHNIQUE: PA and lateral views submitted. HISTORY: Cough, pneumonia, pain FINDINGS: Hyperinflation suggests COPD. There is diffuse osteopenia and arthropathy shoulders. Subsegmental noemy nges involving both lung bases. Atherosclerotic change aorta. Hypertrophic and degenerative change of the spine. No overt failure. There are tiny bilateral pleural effusions. IMPRESSION: 1. Basilar atelectasis favored over early infiltrate correlate clinically for confirmation. 2. COPD. 3. Tiny bilateral pleural effusions.
--- NOTE | 2018-05-22 15:20 | P.PN ---
Subjective Progress Note Date: 05/22/18 87-year-old female one of Dr. Quinones's patient with past medical history off dementia, rheumatoid arthritis, COPD and recurrent angina workup in the morning complaining of slight worsening shortness of breath along with neck pain and headache with slight worsening mental status. Patient also had low- grade temperature and increased cough with more congestion. Ended up coming to demurs department at [facility] where was seen and evaluated surprisingly chest x-ray revealed right upper lobe infiltrate in consultation, patient had moderately elevated white blood cell with mild shifted low-grade temperature with the above symptom decided to start on Rocephin and Zithromax along with Mucinex and O2 with updraft admit patient to the hospital for the above problem. Also patient had mild to moderate neck pain with severe stiffness and quite occipital neuralgia with no rash according to her does have stiffness in the neck every so often. 05/22: patient continues to complain of neck pain and states it is not any better with current treatment. Baclofen 5 mg 3 times daily as needed, gabapentin 100 mg 3 times daily and tramadol 25 mg 4 times daily added. Consult with neurology for possible occipital nerve block with Dr. Dowd. Repeat chest x-ray shows basilar atelectasis favored over early infiltrate. COPD, tiny bilateral pleural effusions. Patient has been afebrile, pulse ox 97 % on room air, vital signs stable. Discharge plan is for [facility] or [facility]. Review of Systems CONSTITUTIONAL: Well-developed no acute respiratory distress. Has quite bit stiffness in the neck with occipital neuralgia, mild low-grade temperature. EYES: No icterus sclerae, no conjunctivitis. EARS, NOSE, MOUTH, THROAT, and FACE: No sore throat, lymphadenopathy, carotid bruits or deformity. RESPIRATORY: Shortness of breath and cough. CARDIOVASCULAR: No CP, Palpitation, PND, Orthopnea, or angina. GASTROINTESTINAL: No Abd pain, Nausea or vomiting, no Diarrhea or constipation, No GI Bleed, no distention or masses. GENITOURINARY: Negative for Hematuria or UTI, no kidney stones. INTEGUMENT/BREAST: Negative for any muscular injury with mild osteoarthritis.. HEMATOLOGIC/LYMPHATIC: Negative for bleed or purpura. MUSCULOSKELTAL: Negative for Myalgia or arthralgia. NEURLOGICAL: Mild dementia with worsening mentation. BEHAVIORAL/PSYCH: Negative. ENDOCRINE: Negative. Objective - Vital Signs Vital signs: Vital Signs Temp 96.7 F L 05/22/18 06:00 Pulse 63 05/22/18 06:00 Resp 20 05/22/18 06:00 BP 143/65 05/22/18 06:00 Pulse Ox 95 05/22/18 06:00 Intake & Output 05/21/18 05/22/18 05/22/18 18:59 06:59 18:59 Intake Total 300 Balance 300 Weight 52.163 kg 52.163 kg Intake: Oral 300 Other: # Voids 1 - Exam General Appearance: Alert, cooperative, no distress, appears stated age. With quite bit stiffness in the neck Neck HEENT: Supple, no lymphadenopathy, no thyroid enlargement, no carotid bruits. Mild stiffness with full range of motion more motion with mild discomfort in the left side of the occipital area with no rash consistent with occipital neuralgia. Lungs: Clear to auscultation without crackles or wheezes positive rhonchi, no deformity. Chest Wall: Chest wall normal expansion with deep inspiration no tenderness and no deformity was found on exam, no costochondral pain or discomfort. Heart: Regular rate and rhythm, S1, S2 normal, no murmur, rub or gallop. Back: Symmetric, no curvature, ROM normal, no CVA tenderness. Abdomen: Soft, non-tender, bowel sounds active all four quadrants, no masses, no organomegaly. Extremities: Extremities normal, atraumatic, no cyanosis or edema. Pulses: 2+ and symmetric. Skin: Skin color, texture, tugor normal, no rashes or lesions. Neurologic: Alert oriented with slight confusion current and after to 12 intact positive generalized weakness no focal deficit. Significant dementia and memory loss as well.. - Labs CBC & Chem 7: 05/21/18 12:15 05/21/18 12:15 Labs: Abnormal Lab Results - Last 24 Hours (Table) 05/21/18 05/21/18 05/21/18 Range/Units 12:15 12:15 13:00 WBC 10.7 H (3.8-10.6) k/uL Neutrophils # 8.4 H (1.3-7.7) k/uL Chloride 110 H (98-107) mmol/L BUN 20 H (7-17) mg/dL Urine Blood Small H (Negative) Urine Mucus Rare H (None) /hpf Microbiology - Last 24 Hours (Table) 05/21/18 13:00 Urine Culture - Preliminary Urine,Voided Assessment and Plan Plan: 1 severe dyspnea and shortness of breath: Secondary to pneumonia with higher exposure to resident and half-way visiting her patient will be treated with Rocephin and azithromycin for now continue updraft treatment O2 repeat chest x-ray as above 2 severe occipital neuralgia: Patient started on Baclofen 5 mg 3 times daily as needed, gabapentin 100 mg 3 times daily and tramadol 25 mg 4 times daily added.consult with Dr. Dowd for possible occipital nerve block. 3 COPD: Continue O2 along with updraft treatment. 4 dementia: Most likely Alzheimer type has been on Remeron only and to medication. 5 hyperlipidemia: On Crestor 20 mg a day. 6 recurrent depression: On Lexapro 5 mg a day continue medication. 7 DVT prophylaxis: Patient will be on heparin subcutaneous. 8 GI prophylaxis: Patient will be on Pepcid 20 mg daily. CODE STATUS: DO NOT RESUSCITATE. Discharge plan:subacute rehab at [facility] on Friday. Impression and plan of care have been directed as dictated by the signing physician. Bonny Calzada nurse practitioner acting as scribe for signing physician.
--- NOTE | 2018-05-22 19:56 | P.CNNES ---
History of Present Illness Consult date: 05/22/18 History of Present Illness: The patient 87-year-old right-handed white female who complains of pain along the left side of her neck behind the ear which is sharp and radiating and aggravated by neck movement. She denies any headache. She admits to falling frequently. Her son is at the bedside and reports that she has dementia and its gotten worse over the last 6 months. Her has recently been placed to the custodial and she was visiting him on Friday and she fell asleep on the chair and apparently her neck was twisted where she slept for several hours in that position. She was brought into the hospital because of complaints of severe pain in the left neck muscles. Emergency room she was found to have elevated temperature and chest x-ray revealed small pleural effusion with infiltrate and the patient was admitted to the hospital with pneumonia and altered mental status. Review of Systems ROS unobtainable: due to mental status Past Medical History Past Medical History: Chest Pain / Angina, COPD, Dementia, GERD/Reflux, Hearing Disorder / Deafness, Hyperlipidemia, Liver Disease, Osteoarthritis (OA), Pneumonia, Rheumatoid Arthritis (RA) Additional Past Medical History / Comment(s): RA. 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 prolapsed utererus, uti's, falls. per son-pt sleep walks and tries to get out of the house at night. can become combatative. pne vaccine after age 66 History of Any Multi-Drug Resistant Organisms: None Reported Past Surgical History: Appendectomy, Hernia Repair, Hysterectomy Additional Past Surgical History / Comment(s): RT ING HERNIA 05/30/14. Past Anesthesia/Blood Transfusion Reactions: No Reported Reaction Smoking Status: Never smoker - Past Family History Mother Family Medical History: Diabetes Mellitus Father Family Medical History: Cancer Additional Family Medical History / Comment(s): melanoma Medications and Allergies Home Medications Medication Instructions Recorded Confirmed Type Escitalopram [Lexapro] 5 mg PO DAILY 05/21/18 05/21/18 History Mirtazapine [Remeron] 15 mg PO HS 05/21/18 05/21/18 History Rosuvastatin [Crestor] 20 mg PO DAILY 05/21/18 05/21/18 History Allergies Allergy/AdvReac Type Severity Reaction Status Date / Time codeine AdvReac Unknown Rapid Verified 05/21/18 12:07 Heart Rate Physical Examination - Vital Signs Vital Signs: Vital Signs Temp Pulse Resp BP Pulse Ox 05/22/18 14:49 99.6 F 67 16 155/78 97 05/22/18 06:00 96.7 F L 63 20 143/65 95 05/21/18 23:45 96.9 F L 71 20 155/86 99 Intake and Output 05/22/18 05/22/18 05/22/18 06:59 14:59 22:59 Intake Total 100 Balance 100 Intake: Oral 100 Other: # Voids 1 1 # Bowel Movements 0 - Constitutional General appearance: average body habitus - EENT EENT: PERRL - Respiratory Respiratory: lungs clear - Cardiovascular Cardiovascular: regular rate, normal S1, normal S2 - Neurologic Neurologic examination: Next Mental status: He was awake she was alert she was oriented to person she was disoriented to time and place. He was no a aphasia or dysarthria. She had difficulty doing calculations she was able to spell world and she was able to follow commands Cranial nerve examination: Cranial nerves II through XII grossly intact next Motor examination: She moved all 4 extremities. She had some limitation with both shoulders due to pain and arthritis Sensory examination: Intact to light touch Coordination: Finger to nose intact Gait: Could not be tested Results - Laboratory Findings CBC and BMP: 05/21/18 12:15 05/21/18 12:15 Abnormal Lab Findings: Abnormal Labs 05/21/18 05/21/18 05/21/18 12:15 12:15 13:00 WBC 10.7 H Neutrophils # 8.4 H Chloride 110 H BUN 20 H Urine Blood Small H Urine Mucus Rare H Assessment and Plan (1) Cervical strain Current Visit: Yes Status: Acute Code(s): S16.1XXA - STRAIN OF MUSCLE, FASCIA AND TENDON AT NECK LEVEL, INIT SNOMED Code(s): 597122249 (2) Occipital neuralgia of left side Current Visit: Yes Status: Acute SNOMED Code(s): 53375907 (3) Dementia Current Visit: Yes Status: Acute SNOMED Code(s): 44615625 (4) Pneumonia Current Visit: Yes Status: Acute SNOMED Code(s): 247798645 Plan: The patient is is 87-year-old woman complaining of pain along the left trapezius muscle and tenderness along the suprascapular area on the left. Patient does admit to having falls at home. Recommend CT brain and cervical spine. Patient may benefit from physical therapy for her neck's sprain as well as occipital neuralgia.
[2018-05-22] MEDS: MIRTAZAPINE 15 MG TAB PO SCH (20:28)
--- NOTE | 2018-05-22 21:42 | CT ---
EXAMINATION TYPE: CT brain cassandra jamil con DATE OF EXAM: 05/22/2018 COMPARISON: CT brain 02/23/2015 HISTORY: ams, confusion, multiple falls CT DLP: 1293.4 mGycm Automated exposure control for dose reduction was used. TECHNIQUE: CT scan of the head and cervical spine are performed without contrast. FINDINGS: There is cerebral cortical atrophy. There is no mass effect nor midline shift. There is n o sign of intracranial hemorrhage. There is patchy hypodensity in the periventricular white matter. C alvarium is intact. Cervical vertebra have normal alignment. There is spurring of the endplates. Posterior elements are i ntact. There is multilevel hypertrophic facet arthropathy. Skull base is intact. There is no evidence of a fracture. There is endplate posterior spurring at C3-4 with some encroachment on the spinal can al. IMPRESSION: Cerebral atrophy and chronic small vessel ischemia. No acute intracranial abnormality. Spurring is un changed compared to old exam. Spondylotic changes in the cervical spine. No fracture seen.
[2018-05-23] MEDS: BACLOFEN 10 MG TAB PO PRN (04:38)
[2018-05-23] MEDS: LIDOCAINE 5% PATCH TOPICAL SCH (05:28)
[2018-05-23] MEDS: traMADol 50 MG TAB PO SCH ×4 (08:44→20:18)
[2018-05-23] MEDS: ATORVASTATIN 40 MG TAB PO SCH (08:45)
[2018-05-23] MEDS: GABAPENTIN 100 MG CAP PO SCH ×3 (08:45→20:18)
[2018-05-23] MEDS: FAMOTIDINE 20 MG TAB PO SCH (08:45)
[2018-05-23] MEDS: AZITHROMYCIN 500 MG TAB PO SCH (08:45)
[2018-05-23] MEDS: HEPARIN SODIUM,PORCINE 5,000 UNIT/ML 1 ML VIAL SQ SCH ×2 (08:45→20:18)
[2018-05-23] MEDS: ESCITALOPRAM 5 MG TAB PO SCH (08:45)
[2018-05-23 08:59] LABS: HCT 39.1 % (34.0-46.0); HGB 12.8 gm/dL (11.4-16.0); MCH 29.9 pg (25.0-35.0); MCHC 32.8 g/dL (31.0-37.0); MCV 91.1 fL (80.0-100.0); Mean Platelet Volume 7.5; Platelet Count 262 k/uL (150-450); RBC 4.29 m/uL (3.80-5.40); WBC 10.4 k/uL (3.8-10.6)
[2018-05-23 09:07] LABS: Calcium 9.1 mg/dL (8.4-10.2); Potassium 4.4 mmol/L (3.5-5.1)
--- NOTE | 2018-05-23 11:49 | P.PN ---
Subjective Progress Note Date: 05/23/18 87-year-old female one of Dr. Quinones's patient with past medical history off dementia, rheumatoid arthritis, COPD and recurrent angina workup in the morning complaining of slight worsening shortness of breath along with neck pain and headache with slight worsening mental status. Patient also had low- grade temperature and increased cough with more congestion. Ended up coming to demurs department at [facility] where was seen and evaluated surprisingly chest x-ray revealed right upper lobe infiltrate in consultation, patient had moderately elevated white blood cell with mild shifted low-grade temperature with the above symptom decided to start on Rocephin and Zithromax along with Mucinex and O2 with updraft admit patient to the hospital for the above problem. Also patient had mild to moderate neck pain with severe stiffness and quite occipital neuralgia with no rash according to her does have stiffness in the neck every so often. 05/22: patient continues to complain of neck pain and states it is not any better with current treatment. Baclofen 5 mg 3 times daily as needed, gabapentin 100 mg 3 times daily and tramadol 25 mg 4 times daily added. Consult with neurology for possible occipital nerve block with Dr. Dowd. Repeat chest x-ray shows basilar atelectasis favored over early infiltrate. COPD, tiny bilateral pleural effusions. Patient has been afebrile, pulse ox 97 % on room air, vital signs stable. Discharge plan is for [facility] or [facility]. 05/23: Patient is sitting up in chair she appears to be confused she denies any chest pain, shortness breath, she appeared a bit drowsy, she will likely be discharged to [facility] on the friday. Review of Systems CONSTITUTIONAL: Well-developed no acute respiratory distress. Has quite bit stiffness in the neck with occipital neuralgia, mild low-grade temperature. EYES: No icterus sclerae, no conjunctivitis. EARS, NOSE, MOUTH, THROAT, and FACE: No sore throat, lymphadenopathy, carotid bruits or deformity. RESPIRATORY: Shortness of breath and cough. CARDIOVASCULAR: No CP, Palpitation, PND, Orthopnea, or angina. GASTROINTESTINAL: No Abd pain, Nausea or vomiting, no Diarrhea or constipation, No GI Bleed, no distention or masses. GENITOURINARY: Negative for Hematuria or UTI, no kidney stones. INTEGUMENT/BREAST: Negative for any muscular injury with mild osteoarthritis.. HEMATOLOGIC/LYMPHATIC: Negative for bleed or purpura. MUSCULOSKELTAL: Negative for Myalgia or arthralgia. NEURLOGICAL: Mild dementia with worsening mentation. BEHAVIORAL/PSYCH: Negative. ENDOCRINE: Negative. Objective - Vital Signs Vital signs: Vital Signs Temp 99.7 F H 05/23/18 07:00 Pulse 80 05/23/18 07:00 Resp 16 05/23/18 07:00 BP 154/76 05/23/18 07:00 Pulse Ox 95 05/23/18 07:00 Intake & Output 05/22/18 05/23/18 05/23/18 18:59 06:59 18:59 Other: # Voids 1 2 # Bowel Movements 0 1 - Exam - Exam General Appearance: Alert, cooperative, no distress, appears stated age. With quite bit stiffness in the neck Neck HEENT: Supple, no lymphadenopathy, no thyroid enlargement, no carotid bruits. Mild stiffness with full range of motion more motion with mild discomfort in the left side of the occipital area with no rash consistent with occipital neuralgia. Lungs: Clear to auscultation without crackles or wheezes positive rhonchi, no deformity. Chest Wall: Chest wall normal expansion with deep inspiration no tenderness and no deformity was found on exam, no costochondral pain or discomfort. Heart: Regular rate and rhythm, S1, S2 normal, no murmur, rub or gallop. Back: Symmetric, no curvature, ROM normal, no CVA tenderness. Abdomen: Soft, non-tender, bowel sounds active all four quadrants, no masses, no organomegaly. Extremities: Extremities normal, atraumatic, no cyanosis or edema. Pulses: 2+ and symmetric. Skin: Skin color, texture, tugor normal, no rashes or lesions. Neurologic: Alert oriented with slight confusion current and after to 12 intact positive generalized weakness no focal deficit. Significant dementia and memory loss as well.. - Labs CBC & Chem 7: 05/23/18 08:43 05/23/18 08:43 Labs: Microbiology - Last 24 Hours (Table) 05/21/18 13:00 Urine Culture - Final Urine,Voided 05/21/18 13:00 Blood Culture - Preliminary Blood No Growth after 24 hours Assessment and Plan Assessment: Assessment and Plan Plan: 1 severe dyspnea and shortness of breath: Secondary to pneumonia with higher exposure to resident and skilled nursing visiting her patient will be treated with Rocephin and azithromycin for now continue updraft treatment O2 repeat chest x-ray as above 2 severe occipital neuralgia: Patient started on Baclofen 5 mg 3 times daily as needed, gabapentin 100 mg 3 times daily and tramadol 25 mg 4 times daily added.consult with Dr. Dowd for possible occipital nerve block. 3 COPD: Continue O2 along with updraft treatment. 4 dementia: Most likely Alzheimer type has been on Remeron only and to medication. 5 hyperlipidemia: On Crestor 20 mg a day. 6 recurrent depression: On Lexapro 5 mg a day continue medication. 7 DVT prophylaxis: Patient will be on heparin subcutaneous. 8 GI prophylaxis: Patient will be on Pepcid 20 mg daily. CODE STATUS: DO NOT RESUSCITATE. Discharge plan:subacute rehab at [facility] or [facility] on Friday.
[2018-05-23] MEDS: MIRTAZAPINE 15 MG TAB PO SCH (20:18)
[2018-05-24] MEDS: BACLOFEN 10 MG TAB PO PRN (04:16)
[2018-05-24] MEDS: LIDOCAINE 5% PATCH TOPICAL SCH (04:17)
[2018-05-24] MEDS: traMADol 50 MG TAB PO SCH ×2 (08:16→21:31)
[2018-05-24] MEDS: ATORVASTATIN 40 MG TAB PO SCH (08:17)
[2018-05-24] MEDS: GABAPENTIN 100 MG CAP PO SCH ×3 (08:17→21:31)
[2018-05-24] MEDS: FAMOTIDINE 20 MG TAB PO SCH (08:17)
[2018-05-24] MEDS: HEPARIN SODIUM,PORCINE 5,000 UNIT/ML 1 ML VIAL SQ SCH ×2 (08:17→21:31)
[2018-05-24] MEDS: ESCITALOPRAM 5 MG TAB PO SCH (08:17)
[2018-05-24] MEDS: AZITHROMYCIN 500 MG TAB PO SCH (08:17)
--- NOTE | 2018-05-24 20:01 | P.PN ---
Subjective Progress Note Date: 05/24/18 Patient 87-year-old woman admitted with dementia and left neck pain and occipital pain. Today she is experiencing more tenderness in the left occipital notch. She denies headache. Does admit to neck pain and strain. Does have some tenderness along the supraspinatus muscle on the left. She did have a CT of the head and cervical spine which were unremarkable. There is some stable appearing spurring the cervical spine. Objective - Vital Signs Vital signs: Vital Signs Temp 97.6 F 05/24/18 13:54 Pulse 82 05/24/18 13:54 Resp 16 05/24/18 16:00 BP 123/67 05/24/18 13:54 Pulse Ox 97 05/24/18 13:54 Intake & Output 05/24/18 05/24/18 05/25/18 06:59 18:59 06:59 Intake Total 480 Balance 480 Intake: Oral 480 Other: # Voids 1 1 # Bowel Movements 1 - Constitutional General appearance: Present: average body habitus - EENT ENT: Present: hearing grossly normal - Respiratory Respiratory: bilateral: CTA - Cardiovascular Rhythm: regular - Neurologic Neurologic: Present: CNII-XII intact - Musculoskeletal Musculoskeletal: Present: strength equal bilaterally - Labs CBC & Chem 7: 05/23/18 08:43 05/23/18 08:43 Labs: Microbiology - Last 24 Hours (Table) 05/21/18 13:00 Blood Culture - Preliminary Blood No Growth after 72 hours Assessment and Plan (1) Cervical strain Current Visit: Yes Status: Acute Code(s): S16.1XXA - STRAIN OF MUSCLE, FASCIA AND TENDON AT NECK LEVEL, INIT SNOMED Code(s): 612842651 (2) Occipital neuralgia of left side Current Visit: Yes Status: Acute SNOMED Code(s): 69675612 (3) Dementia Current Visit: Yes Status: Acute SNOMED Code(s): 70807290 (4) Pneumonia Current Visit: Yes Status: Acute SNOMED Code(s): 738597070 Plan: Patient is an 87-year-old woman with dementia who presents with left-sided neck pain and cervical strain. She does have some increasing tenderness along the left occipital notch. Recommend anesthesia pain clinic to administer left occipital nerve block. The patient has exacerbation of occipital neuralgia.
[2018-05-24] MEDS: MIRTAZAPINE 15 MG TAB PO SCH (21:31)
--- NOTE | 2018-05-24 22:01 | P.PN ---
Subjective Progress Note Date: 05/24/18 87-year-old female one of Dr. Quinones's patient with past medical history off dementia, rheumatoid arthritis, COPD and recurrent angina workup in the morning complaining of slight worsening shortness of breath along with neck pain and headache with slight worsening mental status. Patient also had low- grade temperature and increased cough with more congestion. Ended up coming to demurs department at [facility] where was seen and evaluated surprisingly chest x-ray revealed right upper lobe infiltrate in consultation, patient had moderately elevated white blood cell with mild shifted low-grade temperature with the above symptom decided to start on Rocephin and Zithromax along with Mucinex and O2 with updraft admit patient to the hospital for the above problem. Also patient had mild to moderate neck pain with severe stiffness and quite occipital neuralgia with no rash according to her does have stiffness in the neck every so often. 05/22: patient continues to complain of neck pain and states it is not any better with current treatment. Baclofen 5 mg 3 times daily as needed, gabapentin 100 mg 3 times daily and tramadol 25 mg 4 times daily added. Consult with neurology for possible occipital nerve block with Dr. Dowd. Repeat chest x-ray shows basilar atelectasis favored over early infiltrate. COPD, tiny bilateral pleural effusions. Patient has been afebrile, pulse ox 97 % on room air, vital signs stable. Discharge plan is for [facility] or [facility]. 05/23: Patient is sitting up in chair she appears to be confused she denies any chest pain, shortness breath, she appeared a bit drowsy, she will likely be discharged to [facility] on the friday. 05/24:Patient is sitting up in chair , she appeared a bit more confused , subsequently we will decrease tramadol and we will discontinue Baclofen. Review of Systems CONSTITUTIONAL: Well-developed no acute respiratory distress. Has quite bit stiffness in the neck with occipital neuralgia, mild low-grade temperature. EYES: No icterus sclerae, no conjunctivitis. EARS, NOSE, MOUTH, THROAT, and FACE: No sore throat, lymphadenopathy, carotid bruits or deformity. RESPIRATORY: Shortness of breath and cough. CARDIOVASCULAR: No CP, Palpitation, PND, Orthopnea, or angina. GASTROINTESTINAL: No Abd pain, Nausea or vomiting, no Diarrhea or constipation, No GI Bleed, no distention or masses. GENITOURINARY: Negative for Hematuria or UTI, no kidney stones. INTEGUMENT/BREAST: Negative for any muscular injury with mild osteoarthritis.. HEMATOLOGIC/LYMPHATIC: Negative for bleed or purpura. MUSCULOSKELTAL: Negative for Myalgia or arthralgia. NEURLOGICAL: Mild dementia with worsening mentation. BEHAVIORAL/PSYCH: Negative. ENDOCRINE: Negative. Objective - Vital Signs Vital signs: Vital Signs Temp 97.3 F L 05/24/18 06:00 Pulse 70 05/23/18 22:17 Resp 17 05/23/18 22:17 BP 118/71 05/23/18 22:17 Pulse Ox 91 L 05/23/18 22:17 Intake & Output 05/23/18 05/24/18 05/24/18 18:59 06:59 18:59 Other: # Voids 2 1 # Bowel Movements 0 - Exam - Exam General Appearance: Alert, cooperative, no distress, appears stated age. With quite bit stiffness in the neck Neck HEENT: Supple, no lymphadenopathy, no thyroid enlargement, no carotid bruits. Mild stiffness with full range of motion more motion with mild discomfort in the left side of the occipital area with no rash consistent with occipital neuralgia. Lungs: Clear to auscultation without crackles or wheezes positive rhonchi, no deformity. Chest Wall: Chest wall normal expansion with deep inspiration no tenderness and no deformity was found on exam, no costochondral pain or discomfort. Heart: Regular rate and rhythm, S1, S2 normal, no murmur, rub or gallop. Back: Symmetric, no curvature, ROM normal, no CVA tenderness. Abdomen: Soft, non-tender, bowel sounds active all four quadrants, no masses, no organomegaly. Extremities: Extremities normal, atraumatic, no cyanosis or edema. Pulses: 2+ and symmetric. Skin: Skin color, texture, tugor normal, no rashes or lesions. Neurologic: Alert oriented with slight confusion current and after to 12 intact positive generalized weakness no focal deficit. Significant dementia and memory loss as well.. - Labs CBC & Chem 7: 05/23/18 08:43 05/23/18 08:43 Labs: Abnormal Lab Results - Last 24 Hours (Table) 05/23/18 Range/Units 08:43 Chloride 110 H (98-107) mmol/L BUN 19 H (7-17) mg/dL Glucose 100 H (74-99) mg/dL Microbiology - Last 24 Hours (Table) 05/21/18 13:00 Blood Culture - Preliminary Blood No Growth after 48 hours Assessment and Plan Assessment: Assessment and Plan Plan: 1 Pneumonia. we will continue with same ABX . 2 severe occipital neuralgia: Patient started on Baclofen 5 mg 3 times daily as needed, gabapentin 100 mg 3 times daily and tramadol 25 mg 4 times daily added.consult with Dr. Dowd for possible occipital nerve block. 3 COPD: Continue O2 along with updraft treatment. 4 dementia: Most likely Alzheimer type has been on Remeron only and to medication. 5 hyperlipidemia: On Crestor 20 mg a day. 6 recurrent depression: On Lexapro 5 mg a day continue medication. 7 DVT prophylaxis: Patient will be on heparin subcutaneous. 8 GI prophylaxis: Patient will be on Pepcid 20 mg daily. CODE STATUS: DO NOT RESUSCITATE. Discharge plan:[facility]acute [facility]hab at [facility] on Friday.
[2018-05-24] MEDS: ACETAMINOPHEN TAB 325 MG TAB PO PRN (22:44)
[2018-05-25] MEDS: LIDOCAINE 5% PATCH TOPICAL SCH (05:15)
[2018-05-25] MEDS: traMADol 50 MG TAB PO SCH (08:06)
[2018-05-25] MEDS: ESCITALOPRAM 5 MG TAB PO SCH (08:07)
[2018-05-25] MEDS: FAMOTIDINE 20 MG TAB PO SCH (08:07)
[2018-05-25] MEDS: GABAPENTIN 100 MG CAP PO SCH (08:07)
[2018-05-25] MEDS: HEPARIN SODIUM,PORCINE 5,000 UNIT/ML 1 ML VIAL SQ SCH ×2 (08:07→20:19)
[2018-05-25] MEDS: AZITHROMYCIN 500 MG TAB PO SCH (08:07)
[2018-05-25] MEDS: ATORVASTATIN 40 MG TAB PO SCH (08:07)
--- NOTE | 2018-05-25 13:18 | XR ---
EXAM TYPE: LUMBAR SPINE X RAY SERIES COMPARISON: NONE HISTORY: Pain TECHNIQUE: 4 views are submitted. FINDINGS: Alignment is anatomic. The pedicles are intact. The transverse processes are intact. . Severe mul tilevel degenerative disc disease with diffuse osteopenia. Grade 1 anterolisthesis L4 and L5. Multile yoana facet arthropathy noted. IMPRESSION: 1. 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 Foraminal encroachment suspected.
--- NOTE | 2018-05-25 13:18 | P.PAINCN ---
History of Present Illness - Reason for Consult Consult date: 05/25/18 - History of Present Illness This is 87 years old female, with past medical history significant for dementia grommeting arthritis and COPD,, patient was complaining of moderate to severe neck pain and severe headache, the neck pain increases with any neck movement, patient is a poor historian, and she is diagnosed with dementia , on admission patient was found to have fever and she was diagnosed with pleural effusion and pneumonia and she was admitted because she had lung infiltration/pneumonia, and patient was started on antibiotics, currently patient complaining of severe neck pain and headache, localized in the base of the skull and radiated to the top of the head, she had no motor or sensory deficit Past Medical History Past Medical History: Chest Pain / Angina, COPD, Dementia, GERD/Reflux, Hearing Disorder / Deafness, Hyperlipidemia, Liver Disease, Osteoarthritis (OA), Pneumonia, Rheumatoid Arthritis (RA) Additional Past Medical History / Comment(s): RA. 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 prolapsed utererus, uti's, falls. per son-pt sleep walks and tries to get out of the house at night. can become combatative. pne vaccine after age 66 History of Any Multi-Drug Resistant Organisms: None Reported Past Surgical History: Appendectomy, Hernia Repair, Hysterectomy Additional Past Surgical History / Comment(s): RT ING HERNIA 05/30/14. Past Anesthesia/Blood Transfusion Reactions: No Reported Reaction Smoking Status: Never smoker - Past Family History Mother Family Medical History: Diabetes Mellitus Father Family Medical History: Cancer Additional Family Medical History / Comment(s): melanoma Medications and Allergies Home Medications Medication Instructions Recorded Confirmed Type Escitalopram [Lexapro] 5 mg PO DAILY 05/21/18 05/21/18 History Rosuvastatin [Crestor] 20 mg PO DAILY 05/21/18 05/21/18 History Acetaminophen Tab [Tylenol] 650 mg PO Q6HR PRN tab 05/25/18 Rx Cefuroxime [Ceftin] 250 mg PO BID #14 tablet 05/25/18 Rx Lidocaine 5% Patch [Lidoderm 5% 1 patch TOPICAL Q24H patch 05/25/18 Rx Patch] Mirtazapine [Remeron] 7.5 mg PO HS #0 05/25/18 05/21/18 Rx Allergies Allergy/AdvReac Type Severity Reaction Status Date / Time codeine AdvReac Unknown Rapid Verified 05/21/18 12:07 Heart Rate Physical Exam Vitals: Vital Signs Temp Pulse Resp BP Pulse Ox 05/25/18 06:04 97.6 F 73 16 147/82 98 05/24/18 22:37 100.4 F H 79 16 146/72 93 L 05/24/18 16:00 16 05/24/18 13:54 97.6 F 82 16 123/67 97 Intake and Output 05/24/18 05/25/18 05/25/18 22:59 06:59 14:59 Intake Total 240 Balance 240 Intake: Oral 240 Other: Voiding Method Toilet # Voids 1 1 Physical Examinations : 1-Constitutional : Cooperative , not in acute distress . 2-HEENT : nech ; supple , no Lymphadenopathy , no Thyromegaly , :eyes , no icterus, no photophobia . ENT : , normal oropharynx , no Thrush 3- Respiratory : Chest clear to auscultations Bilaterally , no wheezing 4- Cardiovascular : regular rate and rhythem , S1 , S2 , no S3 , no S4. 5- Gastrointestinal: abdomen soft no tenderness , no organomegally . 6- Genitourinary : Defferred . 7-Integumentary : No cellulitis , no ulcers , normal skin turgor , no cyanotic . 8- neurologic : Cranial nerve II to XII intact , no focal neurological deffecit 9-psychatric : alert , oriented , appropriate affect ( complaining of severe neck pain and headache ) 10-Lymphatic : no Lymphadenopathy. 11- musculoskeltal: Cervical Spine motor stregnth in the deltoid and biceps, normal right side , normal Left side motor stregnth biceps and the wrist extensors normal right side ,normal left side . motor stregnth in the triceps muscle . normal Right side , normal Left side deep tendon reflexes normal at the biceps , normal at Brachioradialis , normal at triceps. positive cervical facet loading test . Severe tenderness over the occipital nerves bilaterally Lumber spine moter stegnth lower extremities ,thigh and legs 5/5 Right side , 5/5 Left side Results CBC & Chem 7: 05/23/18 08:43 05/23/18 08:43 Labs: Microbiology - Last 24 Hours (Table) 05/21/18 13:00 Blood Culture - Preliminary Blood No Growth after 72 hours Comments: Computed tomography scan of the cervical spine= cervical spondylosis. Computed tomography scan of the brain= cerebral atrophy Assessment and Plan Plan: Assessment and plan=1 bilateral occipital neuralgia 2-cervicogenic headache. Patient could benefit from bilateral occipital nerve block, if patient continued to have severe neck pain after occipital nerve block then we'll consider doing diagnostic medial branch block, under fluoroscopy guidance, and this can be done as an outpatient, today we will schedule patient to have bilateral occipital nerve block . Time with Patient: Greater than 30 PQRS Measure Charge Sheet PQRS Narrative: Smoking Status Never smoker Do You Want the Pneumonia No Vaccine AT THIS TIME? Blood Pressure [Right Arm] 147/82 Blood Pressure 113/72 Pain Intensity [Neck] 3 Pain Intensity [None] 0 Pain Intensity 3 Pain Scale Used Numeric (1 - 10) Scale Used Numeric (1 - 10) Home Medications: Ambulatory Orders Escitalopram [Lexapro] 5 mg PO DAILY 05/21/18 Rosuvastatin [Crestor] 20 mg PO DAILY 05/21/18 Acetaminophen Tab [Tylenol] 650 mg PO Q6HR PRN tab 05/25/18 Cefuroxime [Ceftin] 250 mg PO BID #14 tablet 05/25/18 Lidocaine 5% Patch [Lidoderm 5% Patch] 1 patch TOPICAL Q24H patch 05/25/18 Mirtazapine [Remeron] 7.5 mg PO HS #0 05/25/18
--- NOTE | 2018-05-25 13:49 | XR ---
EXAMINATION TYPE: XR Hip Bilateral and AP pelvis DATE OF EXAM: 05/25/2018 COMPARISON: NONE HISTORY: Pain TECHNIQUE: A single AP view of the pelvis is obtained. Two views of the bilateral hip are obtained. FINDINGS: There is no acute fracture/dislocation evident in the pelvis. Is a scoliosis with severe m ultilevel degenerative disc disease. There is moderate to severe arthropathy of the hips with hypertr ophic changes bilaterally correlate for femoral acetabular impingement. Calcifications in the pelvis likely vascular. SI joints are symmetric. No acute fracture. No dislocation. IMPRESSION: 1. Bilateral moderate to severe arthropathy of the hip joints with no definite acute displaced fractu re.
--- NOTE | 2018-05-25 14:21 | P.DS ---
Providers Date of admission: 05/21/18 14:55 Expected date of discharge: 05/25/18 Attending physician: Bruce Lynn Consults: 05/22/18 10:54 Consult Physician Routine Consulting Provider: Paris Dowd Consult Reason/Comments: Occupital Neurolgia Do you want consulting provider notified?: Yes Primary care physician: Sabrina Quinones [facility] Course: 87-year-old female one of Dr. Quinones's patient with past medical history off dementia, rheumatoid arthritis, COPD and recurrent angina workup in the morning complaining of slight worsening shortness of breath along with neck pain and headache with slight worsening mental status. Patient also had low- grade temperature and increased cough with more congestion. Ended up coming to demurs department at [facility] where was seen and evaluated surprisingly chest x-ray revealed right upper lobe infiltrate in consultation, patient had moderately elevated white blood cell with mild shifted low-grade temperature with the above symptom decided to start on Rocephin and Zithromax along with Mucinex and O2 with updraft admit patient to the hospital for the above problem. Also patient had mild to moderate neck pain with severe stiffness and quite occipital neuralgia with no rash according to her does have stiffness in the neck every so often. 05/22: patient continues to complain of neck pain and states it is not any better with current treatment. Baclofen 5 mg 3 times daily as needed, gabapentin 100 mg 3 times daily and tramadol 25 mg 4 times daily added. Consult with neurology for possible occipital nerve block with Dr. Dowd. Repeat chest x-ray shows basilar atelectasis favored over early infiltrate. COPD, tiny bilateral pleural effusions. Patient has been afebrile, pulse ox 97 % on room air, vital signs stable. Discharge plan is for [facility] or [facility]. 05/23: Patient is sitting up in chair she appears to be confused she denies any chest pain, shortness breath, she appeared a bit drowsy, she will likely be discharged to [facility] on the friday. 05/24:Patient is sitting up in chair , she appeared a bit more confused , subsequently we will decrease tramadol and we will discontinue Baclofen. 05/25: Patient walks with the aid yesterday down the hallway to the far end and back. She also was initially well this morning but now is complaining of some right groin and hip pain and complained of feeling weak and her gait is noted to be unsteady. There was concern that she may have had a fall at home and this would not have been witnessed. We will plan to discontinue gabapentin and decreased Remeron to 7.5 mg. Ensure added. Patient has been seen by Dr. Gupta would consider diagnostic medial branch block for her occipital nerve neuralgia and this can be done as an outpatient. Patient will be scheduled for bilateral occipital nerve block. Lumbar spine x- ray shows multilevel severe degenerative disc disease and facet arthropathy with grade 1 anterolisthesis L4 on 5. Foraminal encroachment suspected. Bilateral hip and pelvic x-ray shows bilateral moderate to severe arthropathy of the hip joints with no definite acute displaced fracture. WBC is normal. Urine culture is showing 10,000 49,000 skin or genital nerissa. Patient will be prepared for discharge to [facility] today in stable condition. Discharge diagnoses: 1 Pneumonia. 2 severe occipital neuralgia: Outpatient occipital nerve block bilaterally. 3 COPD 4 dementia: Most likely Alzheimer type 5 hyperlipidemia: 6 recurrent depression CODE STATUS: DO NOT RESUSCITATE. Discharge plan:subacute rehab at [facility] on Friday under the care of Dr. Quinones. Impression and plan of care have been directed as dictated by the signing physician. Bonny Calzada nurse practitioner acting as scribe for signing physician. Patient Condition at Discharge: Good Plan - Discharge Summary Discharge Rx Participant: No New Discharge Prescriptions: New Acetaminophen Tab [Tylenol] 650 mg PO Q6HR PRN tab PRN Reason: Fever And/ Or Pain Cefuroxime [Ceftin] 250 mg PO BID #14 tablet Lidocaine 5% Patch [Lidoderm 5% Patch] 1 patch TOPICAL Q24H patch Continue Rosuvastatin [Crestor] 20 mg PO DAILY Escitalopram [Lexapro] 5 mg PO DAILY Changed Mirtazapine [Remeron] 7.5 mg PO HS #0 Discharge Medication List Escitalopram [Lexapro] 5 mg PO DAILY 05/21/18 [History] Rosuvastatin [Crestor] 20 mg PO DAILY 05/21/18 [History] Acetaminophen Tab [Tylenol] 650 mg PO Q6HR PRN tab 05/25/18 [Rx] Cefuroxime [Ceftin] 250 mg PO BID #14 tablet 05/25/18 [Rx] Lidocaine 5% Patch [Lidoderm 5% Patch] 1 patch TOPICAL Q24H patch 05/25/18 [Rx] Mirtazapine [Remeron] 7.5 mg PO HS #0 05/25/18 [Rx] Follow up Appointment(s)/Referral(s): Sabrina Quinones MD [Primary Care Provider] - 1 Week (at [facility])
[2018-05-25] MEDS ORDERED: fentaNYL (PF) 50 MCG/ML 2 ML AMP IVP ONE (15:29)
--- NOTE | 2018-05-25 15:48 | P.PCN ---
Date of Procedure: 05/25/18 Procedure(s) Performed: Preoperative diagnoses= 1- Greater occipital neuralgia, 2-cervicogenic headache Postoperative diagnoses= same as preoperative diagnosis. Procedure= Bilateral Greater occipital nerve block Anesthesia= moderate sedation with fentanyl 100 micrograms . Estimated blood loss=minimal. Procedure indication= the patient had a history of severe chronic neck pain , and headache, diagnosed with occipital neuralgia exam was positive for severe tenderness over the occipital nerve bilaterally, she will be a good candidate occipital nerve block, patient failed conservative management Procedure description= the patient was seen and identified in the preoperative holding area, risks and benefits and alternative of the procedure and possible complications discussed with the patient, and he agreed with the preceding, patient signed the consent, an IV was started, and vital signs were monitored and were stable throughout the procedure, patient was placed in the sitting position or table and the neck area was prepped and draped with a sterile fashion, vital signs were closely monitored during the procedure, 25-gauge needle advanced 1 inch lateral to the occipital protuberance on the right side , at the location of the right occipital nerve , then after negative aspiration for heme and CSF and there was no paresthesia during the injection, 8ml of Robivacaine 0.5% and 20 mg of Kenalog injected after negative aspiration , the needle removed, and the entire same procedure was repeated for the left Greater occipital nerve. Patient tolerated the procedure well without any complication, The patient returned to supine position after the back was cleaned and a Band- Aid applied, the patient transported to recovery room in stable condition and he was monitored for 30 minutes before he was discharged home and then patient was reexamined before going home and patient was discharged in stable condition and patient will follow up with the pain clinic in a few weeks.
[2018-05-25] MEDS: ACETAMINOPHEN TAB 325 MG TAB PO PRN (20:21)
[2018-05-25] MEDS ORDERED: MIRTAZAPINE 15 MG TAB PO SCH (21:00)
[2018-05-26 02:21] VITALS: RESP 18
[2018-05-26] MEDS: LIDOCAINE 5% PATCH TOPICAL SCH (04:55)
[2018-05-26 07:49] VITALS: BP 126/70; PULSE 67; TEMP 97.9
[2018-05-26] MEDS: ESCITALOPRAM 5 MG TAB PO SCH (07:52)
[2018-05-26] MEDS: AZITHROMYCIN 500 MG TAB PO SCH (07:52)
[2018-05-26] MEDS: ATORVASTATIN 40 MG TAB PO SCH (07:52)
[2018-05-26] MEDS: FAMOTIDINE 20 MG TAB PO SCH (07:52)
[2018-05-26] MEDS: HEPARIN SODIUM,PORCINE 5,000 UNIT/ML 1 ML VIAL SQ SCH (07:52)
[2018-05-26 10:38] VITALS: BMI 24.0
== END 2018-05-26 11:07 | DRG 194 ==
LOC: EC 11:45 → 4MS4W 14:55
PROVIDERS: ADMIT Internal Medicine Geriatric Medicine; ATTEND Internal Medicine Geriatric Medicine
PROC: 3E0T33Z Introduction of Anti-inflammatory into Peripheral Nerves and Plexi, Percutaneous Approach (ICD-10-PCS; 2018-05-25)
PROC: 3E0T3BZ Introduction of Anesthetic Agent into Peripheral Nerves and Plexi, Percutaneous Approach (ICD-10-PCS; principal; 2018-05-25 15:00)
DX: J18.9 Pneumonia, unspecified organism (principal); F33.9 Major depressive disorder, recurrent, unspecified; J44.0 Chronic obstructive pulmonary disease with (acute) lower respiratory infection; M54.81 Occipital neuralgia; M06.9 Rheumatoid arthritis, unspecified; S16.1XXA Strain of muscle, fascia and tendon at neck level, initial encounter; G30.9 Alzheimer's disease, unspecified; F02.80 Dementia in other diseases classified elsewhere, unspecified severity, without behavioral disturbance, psychotic disturbance, mood disturbance, and anxiety; H91.90 Unspecified hearing loss, unspecified ear; K21.9 Gastro-esophageal reflux disease without esophagitis; M19.90 Unspecified osteoarthritis, unspecified site; R29.6 Repeated falls; E78.5 Hyperlipidemia, unspecified; Z66 Do not resuscitate; M51.36 Other intervertebral disc degeneration, lumbar region; Z90.710 Acquired absence of both cervix and uterus; Z90.49 Acquired absence of other specified parts of digestive tract; Z79.899 Other long term (current) drug therapy; Z87.440 Personal history of urinary (tract) infections; Z91.81 History of falling; Z80.8 Family history of malignant neoplasm of other organs or systems; Z83.3 Family history of diabetes mellitus; Z88.5 Allergy status to narcotic agent
CPT/HCPCS: 36415; 70450; 71046; 72100; 72125; 73521; 80048; 80053; 81001; 82550; 82553; 83605; 84484; 85025; 85027; 85610; 85730; 87040; 87086; 87502; 93005; 96365; 96367; 99285

== ENCOUNTER 2018-12-18 02:53 | Emergency (ER) | payer MEDICARE, OTHER ==
[2018-12-18 03:22] LABS: Basophils % (A) 0 %; Eosinophils # (A) 0.1 k/uL (0-0.7); Eosinophils % (A) 1 %; HCT 37.5 % (34.0-46.0); HGB 12.4 gm/dL (11.4-16.0); Lymphocytes # (A) 2.1 k/uL (1.0-4.8); Lymphocytes % (A) 21 %; MCH 29.7 pg (25.0-35.0); MCHC 33.1 g/dL (31.0-37.0); MCV 89.7 fL (80.0-100.0); Mean Platelet Volume 7.7; Monocytes # (A) 0.8 k/uL (0-1.0); Monocytes % (A) 8 %; Neutrophils # (A) 6.8 k/uL (1.3-7.7); Neutrophils % (A) 68 %; Platelet Count 245 k/uL (150-450); RBC 4.18 m/uL (3.80-5.40)
[2018-12-18 03:31] LABS: INR 0.9 (<1.2); Partial Thromboplastin Time 22.1 sec (22.0-30.0); Prothrombin Time 10.2 sec (9.0-12.0)
[2018-12-18 03:36] LABS: Albumin 4.1 g/dL (3.5-5.0); Calcium 9.7 mg/dL (8.4-10.2); Potassium 4.3 mmol/L (3.5-5.1); Total Bilirubin 0.4 mg/dL (0.2-1.3); Total Protein 7.2 g/dL (6.3-8.2)
[2018-12-18 03:43] LABS: Creatine Kinase 62 U/L (30-135)
[2018-12-18 03:57] LABS: Creatine Kinase MB 1.1 ng/mL (0.0-2.4); Troponin I <0.012 ng/mL (0.000-0.034)
--- NOTE | 2018-12-18 04:05 | XR ---
EXAM: XR Lumbar Spine, 5 Views CLINICAL HISTORY: Pain. TECHNIQUE: Frontal, lateral and oblique views of the lumbar spine. COMPARISON: No relevant prior studies available. FINDINGS: Vertebrae: No radiographic evidence of acute fracture or malalignment. Multilevel degenerative changes. Disc spaces: Disc space narrowing in the lumbar spine. Soft tissues: Unremarkable as visualized. IMPRESSION: Multilevel degenerative changes of lumbar spine. No radiographic evidence of acute fracture.
--- NOTE | 2018-12-18 05:04 | XR ---
EXAM: XR Right Elbow Complete, 3 Views CLINICAL HISTORY: Pain. TECHNIQUE: Frontal, lateral and oblique views of the right elbow. COMPARISON: No relevant prior studies available. FINDINGS: Bones/joints: No radiographic evidence of acute fracture or dislocation. Osseous degenerative changes. Soft tissues: No significant soft tissue abnormality. IMPRESSION: 1. No radiographic evidence of acute fracture or dislocation. 2. Osseous degenerative changes of right elbow.
--- NOTE | 2018-12-18 05:05 | XR ---
EXAM: XR Right Forearm, 2 Views CLINICAL HISTORY: Pain. Fall. TECHNIQUE: Frontal and lateral views of the right forearm. COMPARISON: No relevant prior studies available. FINDINGS: Bones/joints: No radiographic evidence of acute fracture of right radius or ulna. Soft tissues: No significant soft tissue abnormality. IMPRESSION: No radiographic evidence of acute fracture of right radius or ulna.
--- NOTE | 2018-12-18 05:10 | ED ---
Fall HPI - General Chief Complaint: Fall Stated Complaint: Fall Time Seen by Provider: 12/18/18 03:13 Source: patient, EMS Mode of arrival: EMS - History of Present Illness Initial Comments: 88-year-old female patient percents to the emergency department today for evaluation after experiencing a fall at [facility]. Staff nurses reported that patient was in her room when they heard her fall. State upon reevaluation patient was alert lying on the ground. They did assist her to stand. Patient was complaining of low back pain and right elbow pain. Patient denies hitting her head or losing consciousness during the fall. States she is unsure why she fell. She denies any dizziness, chest pain, shortness of breath currently. She denies any current headache, blurred vision, double vision, nausea, or vomiting. Denies any numbness or tingling to her extremities. Patient denies any neck pain, back pain, chest pain, shortness of breath, abdominal pain, nausea, vomiting, or difficulties with bowel movements or urination. - Related Data Home Medications Medication Instructions Recorded Confirmed Escitalopram [Lexapro] 5 mg PO DAILY 05/21/18 05/21/18 Rosuvastatin [Crestor] 20 mg PO DAILY 05/21/18 05/21/18 Previous Rx's Medication Instructions Recorded Acetaminophen Tab [Tylenol] 650 mg PO Q6HR PRN tab 05/25/18 Cefuroxime [Ceftin] 250 mg PO BID #14 tablet 05/25/18 Lidocaine 5% Patch [Lidoderm 5% 1 patch TOPICAL Q24H patch 05/25/18 Patch] Mirtazapine [Remeron] 7.5 mg PO HS #0 05/25/18 Allergies Allergy/AdvReac Type Severity Reaction Status Date / Time codeine AdvReac Unknown Rapid Verified 12/18/18 02:59 Heart Rate Review of Systems ROS Statement: Those systems with pertinent positive or pertinent negative responses have been documented in the HPI. ROS Other: All systems not noted in ROS Statement are negative. Past Medical History Past Medical History: Chest Pain / Angina, COPD, Dementia, GERD/Reflux, Hearing Disorder / Deafness, Hyperlipidemia, Liver Disease, Osteoarthritis (OA), Pn eumonia, Rheumatoid Arthritis (RA) Additional Past Medical History / Comment(s): RA. 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 prolapsed utererus, uti's, falls. per son-pt sleep walks and tries to get out of the house at night. can become combatative. pne vaccine after age 65 History of Any Multi-Drug Resistant Organisms: None Reported Past Surgical History: Appendectomy, Hernia Repair, Hysterectomy Additional Past Surgical History / Comment(s): RT ING HERNIA 05/30/14. Past Anesthesia/Blood Transfusion Reactions: No Reported Reaction Past Psychological History: No Psychological Hx Reported Smoking Status: Never smoker Past Alcohol Use History: None Reported Past Drug Use History: None Reported - Past Family History Mother Family Medical History: Diabetes Mellitus Father Family Medical History: Cancer Additional Family Medical History / Comment(s): melanoma General Exam Limitations: no limitations General appearance: alert, in no apparent distress, other (Physical well- developed, well-nourished elderly female patient in no acute distress. Vital signs upon presentation are temperature 97.9F, pulse 74, respirations 16, blood pressure 150/82, pulse ox 98% on room air.) Head exam: Present: atraumatic, normocephalic, normal inspection Eye exam: Present: normal appearance, PERRL, EOMI. Absent: scleral icterus, conjunctival injection, periorbital swelling ENT exam: Present: normal exam, normal oropharynx, mucous membranes moist Neck exam: Present: normal inspection, full ROM, other (Nontender, no step-off, no deformity to firm midline palpation of the posterior cervical spine. Full ra nge of motion without pain or limitation.). Absent: tenderness, meningismus, lymphadenopathy Respiratory exam: Present: normal lung sounds bilaterally. Absent: respiratory distress, wheezes, rales, rhonchi, stridor Cardiovascular Exam: Present: regular rate, normal rhythm, normal heart sounds. Absent: systolic murmur, diastolic murmur, rubs, gallop, clicks GI/Abdominal exam: Present: soft, normal bowel sounds. Absent: distended, tenderness, guarding, rebound, rigid Extremities exam: Present: normal inspection, full ROM, tenderness (Tenderness over the right elbow and right forearm), normal capillary refill, other (Skin to the extremities is pink, warm, dry. Cap refills less than 3 seconds. Radial pulses 2+ and equal bilaterally.). Absent: pedal edema, joint swelling, calf tenderness Back exam: Present: normal inspection, vertebral tenderness (Lower lumbar and sacral tenderness) Neurological exam: Present: alert, oriented X3, CN II-XII intact Psychiatric exam: Present: normal affect, normal mood Skin exam: Present: warm, dry, intact, normal color. Absent: rash Course Vital Signs 12/18/18 12/18/18 12/18/18 02:55 04:01 05:32 Temperature 97.9 F 97.8 F Pulse Rate 74 72 73 Respiratory 16 15 18 Rate Blood Pressure 150/82 136/87 135/80 O2 Sat by Pulse 98 98 96 Oximetry Medical Decision Making - Medical Decision Making 88-year-old female patient presented to the emergency department today for evaluation after experiencing a fall. Physical examination did reveal some tenderness to the right elbow and right forearm. There is also tenderness to the lumbar region. Patient had good strength to all 4 extremities. She is neurologically intact with no focal deficit. There is no evidence of head injury. Patient denies head injury. X-rays of the right elbow, right forearm, and low back were obtained and showed no evidence for acute fractures. Upon reevaluation patient denies any pain currently. She declines pain medication. She'll be discharged back to [facility] on the [place]. She is instructed to take Tylenol or Motrin for pain. She is instructed to follow-up with her primary care physician for recheck in 1-2 days. Return parameters were discussed in detail. She verbalizes understanding and agrees with this plan. - Lab Data Result diagrams: 12/18/18 03:00 12/18/18 03:00 Lab Results 12/18/18 12/18/18 12/18/18 Range/Units 03:00 03:00 03:00 WBC 10.0 (3.8-10.6) k/uL RBC 4.18 (3.80-5.40) m/uL Hgb 12.4 (11.4-16.0) gm/dL Hct 37.5 (34.0-46.0) % MCV 89.7 (80.0-100.0) fL MCH 29.7 (25.0-35.0) pg MCHC 33.1 (31.0-37.0) g/dL RDW 15.0 (11.5-15.5) % Plt Count 245 (150-450) k/uL Neutrophils % 68 % Lymphocytes % 21 % Monocytes % 8 % Eosinophils % 1 % Basophils % 0 % Neutrophils # 6.8 (1.3-7.7) k/uL Lymphocytes # 2.1 (1.0-4.8) k/uL Monocytes # 0.8 (0-1.0) k/uL Eosinophils # 0.1 (0-0.7) k/uL Basophils # 0.0 (0-0.2) k/uL PT 10.2 (9.0-12.0) sec INR 0.9 (<1.2) APTT 22.1 (22.0-30.0) sec Sodium 144 (137-145) mmol/L Potassium 4.3 (3.5-5.1) mmol/L Chloride 109 H (98-107) mmol/L Carbon Dioxide 27 (22-30) mmol/L Anion Gap 8 mmol/L BUN 27 H (7-17) mg/dL Creatinine 0.91 (0.52-1.04) mg/dL Est GFR (CKD-EPI)AfAm 66 (>60 ml/min/1.73 sqM) Est GFR (CKD-EPI)NonAf 57 (>60 ml/min/1.73 sqM) Glucose 97 (74-99) mg/dL Calcium 9.7 (8.4-10.2) mg/dL Total Bilirubin 0.4 (0.2-1.3) mg/dL AST 19 (14-36) U/L ALT 16 (9-52) U/L Alkaline Phosphatase 46 (38-126) U/L Total Creatine Kinase (30-135) U/L CK-MB (CK-2) (0.0-2.4) ng/mL CK-MB (CK-2) Rel Index Troponin I (0.000-0.034) ng/mL Total Protein 7.2 (6.3-8.2) g/dL Albumin 4.1 (3.5-5.0) g/dL 12/18/18 Range/Units 03:00 WBC (3.8-10.6) k/uL RBC (3.80-5.40) m/uL Hgb (11.4-16.0) gm/dL Hct (34.0-46.0) % MCV (80.0-100.0) fL MCH (25.0-35.0) pg MCHC (31.0-37.0) g/dL RDW (11.5-15.5) % Plt Count (150-450) k/uL Neutrophils % % Lymphocytes % % Monocytes % % Eosinophils % % Basophils % % Neutrophils # (1.3-7.7) k/uL Lymphocytes # (1.0-4.8) k/uL Monocytes # (0-1.0) k/uL Eosinophils # (0-0.7) k/uL Basophils # (0-0.2) k/uL PT (9.0-12.0) sec INR (<1.2) APTT (22.0-30.0) sec Sodium (137-145) mmol/L Potassium (3.5-5.1) mmol/L Chloride (98-107) mmol/L Carbon Dioxide (22-30) mmol/L Anion Gap mmol/L BUN (7-17) mg/dL Creatinine (0.52-1.04) mg/dL Est GFR (CKD-EPI)AfAm (>60 ml/min/1.73 sqM) Est GFR (CKD-EPI)NonAf (>60 ml/min/1.73 sqM) Glucose (74-99) mg/dL Calcium (8.4-10.2) mg/dL Total Bilirubin (0.2-1.3) mg/dL AST (14-36) U/L ALT (9-52) U/L Alkaline Phosphatase (38-126) U/L Total Creatine Kinase 62 (30-135) U/L CK-MB (CK-2) 1.1 (0.0-2.4) ng/mL CK-MB (CK-2) Rel Index 1.8 Troponin I <0.012 (0.000-0.034) ng/mL Total Protein (6.3-8.2) g/dL Albumin (3.5-5.0) g/dL - Radiology Data Radiology results: report reviewed, image reviewed Two-view x-ray of the right forearm is obtained. Report was reviewed in its entirety. Impression by Dr. Estrada shows no radiographic evidence of acute fracture of the right radius or ulna. 3 views of the right elbow are obtained. Report was reviewed in its entirety. Impression by Dr. Estrada shows no radiographic evidence of acute fracture dislo cation. Osseous degenerative changes of right elbow. 5 views of the lumbar spine are obtained. Report was reviewed in its entirety. Impression by Dr. Estrada shows multilevel degenerative changes of lumbar spine. No radiographic evidence of acute fracture. Disposition Clinical Impression: Fall, Contusion of right elbow, Low back pain Disposition: HOME SELF-CARE Condition: Good Instructions (If sedation given, give patient instructions): Fall Prevention for Older Adults (ED), Contusion in Adults (ED), Back Pain (ED) Additional Instructions: Take Tylenol or Motrin for pain control. Follow-up with your primary care physician for recheck in 1-2 days. Return to the emergency department immediately for any new, worsening, or concerning symptoms Is patient prescribed a controlled substance at d/c from ED?: No Referrals: Sabrina Quinones MD [Primary Care Provider] - 1-2 days Time of Disposition: 05:09
[2018-12-18 05:34] VITALS: BP 135/80; PULSE 73; RESP 18; TEMP 97.8
== END 2018-12-18 06:17 | disposition home or self-care (01) ==
LOC: EC 02:53
DX: S50.01XA Contusion of right elbow, initial encounter (principal); M54.5 Low back pain; M19.021 Primary osteoarthritis, right elbow; M47.816 Spondylosis without myelopathy or radiculopathy, lumbar region; I44.4 Left anterior fascicular block; E78.5 Hyperlipidemia, unspecified; H91.90 Unspecified hearing loss, unspecified ear; Z88.5 Allergy status to narcotic agent; Z79.899 Other long term (current) drug therapy; Z91.81 History of falling; W01.0XXA Fall on same level from slipping, tripping and stumbling without subsequent striking against object, initial encounter; Y92.129 Unspecified place in nursing home as the place of occurrence of the external cause
CPT/HCPCS: 36415; 72110; 80053; 82550; 82553; 84484; 85025; 85610; 85730; 93005; 99284

== ENCOUNTER 2019-07-28 08:09 | Emergency (ER) | payer MEDICARE, OTHER ==
[2019-07-28 08:18] VITALS: RESP 16; TEMP 97.8
[2019-07-28 08:40] LABS: Basophils # (A) 0.1 k/uL (0-0.2); Basophils % (A) 1 %; Eosinophils # (A) 0.2 k/uL (0-0.7); Eosinophils % (A) 2 %; HCT 39.1 % (34.0-46.0); HGB 12.6 gm/dL (11.4-16.0); Lymphocytes % (A) 23 %; MCH 29.9 pg (25.0-35.0); MCHC 32.2 g/dL (31.0-37.0); MCV 92.8 fL (80.0-100.0); Mean Platelet Volume 8.7; Monocytes # (A) 0.5 k/uL (0-1.0); Monocytes % (A) 6 %; Neutrophils # (A) 5.7 k/uL (1.3-7.7); Neutrophils % (A) 66 %; Platelet Count 230 k/uL (150-450); RBC 4.22 m/uL (3.80-5.40); RDW 13.4 % (11.5-15.5); WBC 8.6 k/uL (3.8-10.6)
[2019-07-28 08:51] LABS: Albumin 3.8 g/dL (3.5-5.0); Calcium 9.2 mg/dL (8.4-10.2); Potassium 4.2 mmol/L (3.5-5.1); Total Bilirubin 0.4 mg/dL (0.2-1.3); Total Protein 7.1 g/dL (6.3-8.2)
--- NOTE | 2019-07-28 09:02 | ED ---
Fall HPI <Vin Pulido - Last Filed: 07/28/19 09:21> - General Source: patient, EMS Mode of arrival: EMS <Cleopatra Reyes - Last Filed: 07/28/19 16:58> - General Chief Complaint: Fall Stated Complaint: fall Time Seen by Provider: 07/28/19 08:27 - History of Present Illness Initial Comments: 88-year-old female presenting today for chief complaint of fall possibly around 7AM. Patient is at an care facility and staff notes that they heard a sound around 7 when they checked on patient at 7:30 she was face down on the ground he noticed a occipital laceration area patient has dementia is unsure how she fell. Patient states she has no current complaints aside from right shoulder pain. No use of anticoagulation therapy. Pt denies chest pain sob nausea, vomiting however due to her dementia is an overall poor historian. Patient is AAOx2 which is here baseline. (Cleopatra Reyes) - Related Data Home Medications Medication Instructions Recorded Confirmed Escitalopram [Lexapro] 5 mg PO DAILY 05/21/18 05/21/18 Rosuvastatin [Crestor] 20 mg PO DAILY 05/21/18 05/21/18 Previous Rx's Medication Instructions Recorded Acetaminophen Tab [Tylenol] 650 mg PO Q6HR PRN tab 05/25/18 Cefuroxime [Ceftin] 250 mg PO BID #14 tablet 05/25/18 Lidocaine 5% Patch [Lidoderm 5% 1 patch TOPICAL Q24H patch 05/25/18 Patch] Mirtazapine [Remeron] 7.5 mg PO HS #0 05/25/18 Allergies Allergy/AdvReac Type Severity Reaction Status Date / Time codeine AdvReac Unknown Rapid Verified 12/18/18 02:59 Heart Rate Review of Systems ROS Other: All systems not noted in ROS Statement are negative. <Vin Pulido - Last Filed: 07/28/19 09:21> ROS Other: All systems not noted in ROS Statement are negative. <Cleopatra Reyes - Last Filed: 07/28/19 16:58> ROS Statement: Those systems with pertinent positive or pertinent negative responses have been documented in the HPI. Past Medical History Past Medical History: Chest Pain / Angina, COPD, Dementia, GERD/Reflux, Hearing Disorder / Deafness, Hyperlipidemia, Liver Disease, Osteoarthritis (OA), Pne umonia, Rheumatoid Arthritis (RA) Additional Past Medical History / Comment(s): RA. 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 prolapsed utererus, uti's, falls. per son-pt sleep walks and tries to get out of the house at night. can become combatative. pne vaccine after age 66 History of Any Multi-Drug Resistant Organisms: None Reported Past Surgical History: Appendectomy, Hernia Repair, Hysterectomy Additional Past Surgical History / Comment(s): RT ING HERNIA 05/30/14. Past Anesthesia/Blood Transfusion Reactions: No Reported Reaction Past Psychological History: No Psychological Hx Reported Smoking Status: Never smoker Past Alcohol Use History: None Reported Past Drug Use History: None Reported - Past Family History Mother Family Medical History: Diabetes Mellitus Father Family Medical History: Cancer Additional Family Medical History / Comment(s): melanoma <Cleopatra Reyes L - Last Filed: 07/28/19 16:58> General Exam <Cleopatra Reyes - Last Filed: 07/28/19 16:58> - General Exam Comments Initial Comments: General: The patient is awake and alert, in no distress Eye: +2 mm pupils are equal, round and reactive to light, extra-ocular movements are intact. No nystagmus. There is normal conjunctiva bilaterally. No signs of icterus. Ears, nose, mouth and throat: There are moist mucous membranes and no oral lesions. Neck: The neck is supple, there is no tenderness or JVD. Cardiovascular: There is a regular rate and rhythm. No murmur, rub or gallop is appreciated. Respiratory: Lungs are clear to auscultation, respirations are non-labored, breath sounds are equal. No wheezes, stridor, rales, or rhonchi. Gastrointestinal: Soft, non-distended, non-tender abdomen without masses or organomegaly noted. There is no rebound or guarding present. Musculoskeletal: Normal inspection the shoulders bilaterally heart patient is complaining of anterior right shoulder pain. Refuses range of motion the right shoulder for a torsed the left shoulder lower extremity's bilaterally Strength 5/5 of the upper extremity's lower extremity bilaterally. Sensation intact of the UE and LE b/l. Radial pulses equal bilaterally 2+. Neurological: A&O x 2. CN II-XII intact, There are no obvious motor or sensory deficits. Coordination appears grossly intact. Speech is normal. Skin: Skin is warm and dry and no rashes. Large right sided parietal hematoma wtih a small linear superficial laceration Psychiatric: Cooperative, appropriate mood & affect, normal judgment. (Cleopatra Reyes) Course <Cleopatra Reyes - Last Filed: 07/28/19 16:58> Vital Signs 07/28/19 07/28/19 08:10 10:02 Temperature 97.8 F Pulse Rate 71 72 Respiratory 16 16 Rate Blood Pressure 147/95 141/81 O2 Sat by Pulse 97 97 Oximetry - Reevaluation(s) Reevaluation #1: Discussed case with son who is at bedside he is agreeable with transfer to [facility], he is agreeable to the closest facility. 07/28/19 09:10 (Cleopatra Reyes) Reevaluation #2: Spoke with Dr. Hyde resident at [facility] who spoke with her attending provider, she is accepting transfer for brain hemorrhage/neurosurgery. 07/28/19 09:17 (Cleopatra Reyes) Medical Decision Making - Lab Data Result diagrams: 07/28/19 08:25 07/28/19 08:25 <Vin Pulido - Last Filed: 07/28/19 09:21> - Lab Data Result diagrams: 07/28/19 08:25 07/28/19 08:25 <Cleopatra Reyes - Last Filed: 07/28/19 16:58> - Medical Decision Making Patient reevaluated and reexamined by myself, Dr. Pulido. Patient resting comfortably in bed. Alert and oriented 2 which family states is normal. Family states patient is acting normally. No focal deficits on exam. CT reviewed. Patient and family updated on results and plan. (Vin Pulido) Pleasantly demented 88-year-old female presenting for fall. CT revealed a 15 mm left parietal hemorrhage versus brain contusion. Discussed findings with family would like transfer to [facility]. Dr. Hyde accepted. Discussed case with Dr. Pulido who evaluated patient and is agreeable to care plan. (Cleopatra Reyes) - Lab Data Lab Results 07/28/19 07/28/19 07/28/19 Range/Units 08:25 08:25 08:25 WBC 8.6 (3.8-10.6) k/uL RBC 4.22 (3.80-5.40) m/uL Hgb 12.6 (11.4-16.0) gm/dL Hct 39.1 (34.0-46.0) % MCV 92.8 (80.0-100.0) fL MCH 29.9 (25.0-35.0) pg MCHC 32.2 (31.0-37.0) g/dL RDW 13.4 (11.5-15.5) % Plt Count 230 (150-450) k/uL Neutrophils % 66 % Lymphocytes % 23 % Monocytes % 6 % Eosinophils % 2 % Basophils % 1 % Neutrophils # 5.7 (1.3-7.7) k/uL Lymphocytes # 2.0 (1.0-4.8) k/uL Monocytes # 0.5 (0-1.0) k/uL Eosinophils # 0.2 (0-0.7) k/uL Basophils # 0.1 (0-0.2) k/uL PT (9.0-12.0) sec INR (<1.2) APTT (22.0-30.0) sec Sodium 143 (137-145) mmol/L Potassium 4.2 (3.5-5.1) mmol/L Chloride 109 H (98-107) mmol/L Carbon Dioxide 26 (22-30) mmol/L Anion Gap 8 mmol/L BUN 25 H (7-17) mg/dL Creatinine 0.85 (0.52-1.04) mg/dL Est GFR (CKD-EPI)AfAm 72 (>60 ml/min/1.73 sqM) Est GFR (CKD-EPI)NonAf 62 (>60 ml/min/1.73 sqM) Glucose 89 (74-99) mg/dL Calcium 9.2 (8.4-10.2) mg/dL Total Bilirubin 0.4 (0.2-1.3) mg/dL AST 22 (14-36) U/L ALT 13 (4-34) U/L Alkaline Phosphatase 39 (38-126) U/L Creatine Kinase 54 (30-135) U/L Troponin I <0.012 (0.000-0.034) ng/mL Total Protein 7.1 (6.3-8.2) g/dL Albumin 3.8 (3.5-5.0) g/dL 07/28/19 Range/Units 08:25 WBC (3.8-10.6) k/uL RBC (3.80-5.40) m/uL Hgb (11.4-16.0) gm/dL Hct (34.0-46.0) % MCV (80.0-100.0) fL MCH (25.0-35.0) pg MCHC (31.0-37.0) g/dL RDW (11.5-15.5) % Plt Count (150-450) k/uL Neutrophils % % Lymphocytes % % Monocytes % % Eosinophils % % Basophils % % Neutrophils # (1.3-7.7) k/uL Lymphocytes # (1.0-4.8) k/uL Monocytes # (0-1.0) k/uL Eosinophils # (0-0.7) k/uL Basophils # (0-0.2) k/uL PT 9.8 (9.0-12.0) sec INR 0.9 (<1.2) APTT 22.2 (22.0-30.0) sec Sodium (137-145) mmol/L Potassium (3.5-5.1) mmol/L Chloride (98-107) mmol/L Carbon Dioxide (22-30) mmol/L Anion Gap mmol/L BUN (7-17) mg/dL Creatinine (0.52-1.04) mg/dL Est GFR (CKD-EPI)AfAm (>60 ml/min/1.73 sqM) Est GFR (CKD-EPI)NonAf (>60 ml/min/1.73 sqM) Glucose (74-99) mg/dL Calcium (8.4-10.2) mg/dL Total Bilirubin (0.2-1.3) mg/dL AST (14-36) U/L ALT (4-34) U/L Alkaline Phosphatase (38-126) U/L Creatine Kinase (30-135) U/L Troponin I (0.000-0.034) ng/mL Total Protein (6.3-8.2) g/dL Albumin (3.5-5.0) g/dL Disposition <Vin Pulido - Last Filed: 07/28/19 09:21> Is patient prescribed a controlled substance at d/c from ED?: No Time of Disposition: 09:13 - Out of Hospital Transfer - Req. Specs Out of Hospital Transfer - Requested Specifics: Other Emergency Center ([facility]) <Cleopatra Reyes - Last Filed: 07/28/19 16:58> Clinical Impression: Fall, Brain bleed, Scalp hematoma, Right shoulder pain Disposition: OTHER INSTITUTION NOT DEFINED Condition: Serious Additional Instructions: Go straight to [facility] via EMS. Referrals: Sabrina Quinones MD [Primary Care Provider] - 1-2 days
--- NOTE | 2019-07-28 09:03 | CT ---
EXAMINATION TYPE: CT brain michealine omero con DATE OF EXAM: 07/28/2019 COMPARISON: Prior CT 05/22/2018 HISTORY: fall, occiptal hematoma/laceration CT DLP: 1242.2 mGycm Automated exposure control for dose reduction was used. TECHNIQUE: CT scan of the head and cervical spine are performed without contrast. FINDINGS: There is abnormal increased attenuation in the left frontal lobe consistent with parenchy mal hemorrhage or contusion measuring approximately 15 mm in greatest transverse dimension by 18 mm i n cephalad to caudal dimension near the frontal martin-white junction level. No mass effect. The ventri cles and sulci are within normal limits in size accounting for cortical atrophy. Punctate focus of l ow-attenuation in the head of the caudate consistent with lacunar infarct is likely chronic. The glob es are intact and the visualized sinuses are clear. Right occipital cephalohematoma is present. There are cerebral vascular calcifications. Cervical spine is visualized in its entirety from C1 through upper thoracic levels and demonstrates s atisfactory alignment without evidence of acute fracture or dislocation. Prevertebral soft tissue ap pears within normal limits. The C1-C2 articulation is unremarkable. 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 There is multilevel facet arthropathy. There is cervical spo ndylosis. Cervical vertebral bodies show preserved height. Multilevel foraminal encroachment is prese nt. Multilevel disc bulges also noted. IMPRESSION: 1. There is no acute fracture or dislocation evident in the cervical spine. 2. Brain contusion or hemorrhage as described. Report relayed telephonically to the emergency Center physician at the time of interpretation.
[2019-07-28 09:39] LABS: INR 0.9 (<1.2); Partial Thromboplastin Time 22.2 sec (22.0-30.0); Prothrombin Time 9.8 sec (9.0-12.0)
[2019-07-28 10:04] VITALS: BP 141/81; PULSE 72
--- NOTE | 2019-07-28 10:05 | XR ---
EXAMINATION TYPE: XR shoulder complete RT DATE OF EXAM: 07/28/2019 COMPARISON: 02/23/2015 HISTORY: Pain TECHNIQUE: 2 views submitted FINDINGS: Arthropathy of the AC joint. Positioning limits assessment. There is a deformity along the lateral margin of the humerus which likely is chronic. IMPRESSION: 1. Probable chronic deformity along the lateral margin of the humerus correlate with point tenderness . Follow-up CT scan could BE obtained as clinically warranted. 2. AC joint arthropathy.
--- NOTE | 2019-07-28 10:07 | XR ---
EXAMINATION TYPE: XR chest 2V DATE OF EXAM: 07/28/2019 COMPARISON: 05/22/2018 TECHNIQUE: PA and lateral views submitted. HISTORY: Pain FINDINGS: Basilar subsegmental changes on the left. Limited inspiration. Atherosclerotic change aorta. Heart si ze normal no overt failure, pleural effusion, or pneumothorax. Arthropathy of the shoulders. Chronic appearing deformity of the proximal right humerus. Hypertrophic and degenerative change of the spine. IMPRESSION: 1. Basilar bronchiectasis or atelectasis favored over pneumonia.
--- NOTE | 2019-07-28 10:08 | XR ---
EXAMINATION TYPE: XR Hip Bilateral and AP pelvis DATE OF EXAM: 07/28/2019 COMPARISON: NONE HISTORY: Pain TECHNIQUE: A single AP view of the pelvis is obtained. Two views of the bilateral hip are obtained. FINDINGS: Hypertrophic change and significant arthropathy of both hip joints. Degenerative change low er lumbar spine. Vascular calcifications noted. No definite acute fracture. Well-corticated soft tiss ue ossification adjacent to the greater trochanter of the left hip. IMPRESSION: 1. Severe arthropathy. 2. No acute fracture
== END 2019-07-28 10:04 | disposition other institution (70) ==
LOC: EC 08:09
DX: S06.2X0A Diffuse traumatic brain injury without loss of consciousness, initial encounter (principal); S01.01XA Laceration without foreign body of scalp, initial encounter; M25.511 Pain in right shoulder; F03.90 Unspecified dementia, unspecified severity, without behavioral disturbance, psychotic disturbance, mood disturbance, and anxiety; E78.5 Hyperlipidemia, unspecified; I25.2 Old myocardial infarction; M06.9 Rheumatoid arthritis, unspecified; Z79.899 Other long term (current) drug therapy; Z88.5 Allergy status to narcotic agent; W19.XXXA Unspecified fall, initial encounter; Y92.099 Unspecified place in other non-institutional residence as the place of occurrence of the external cause
CPT/HCPCS: 36415; 70450; 71046; 72125; 73521; 80053; 82550; 84484; 85025; 85610; 85730; 93005; 99285

== ENCOUNTER → 2019-08-19 | Outpatient (CLI) | payer MEDICARE, OTHER ==
--- NOTE | 2019-08-19 11:18 | FL ---
MODIFIED SWALLOW / DEGLUTITION STUDY DATE OF EXAM: 08/19/2019 CLINICAL HISTORY: 88-year-old female Dysphagia. Coughing with food. TECHNIQUE: Deglutition study is performed utilizing thin liquid barium, honey and nectar thick liqui d barium, barium thick applesauce, and barium coated cracker. COMPARISON: None. Total fluoroscopy time: 2 minutes 41 seconds. Total images: None. Real-time fluoroscopy support was provided to speech pathology. FINDINGS: The oral and pharyngeal phases show satisfactory initiation and propagation with all modalities teste d. There is no evidence of penetration or aspiration with any modality tested. Mild vallecular resid uals are noted. There is a degenerative grade 1 anterolisthesis along the mid to lower cervical spine . Quick imaging to yeny a swallowed bolus shows no obstruction or obvious stricture within the thoraci c esophagus. IMPRESSION: No penetration or aspiration. Mild vallecular residuals. Please refer to speech therapist notes for further details if necessary.
== END | disposition home or self-care (01) ==
LOC: RADUSWWP 10:29
PROVIDERS: ATTEND Internal Medicine
DX: R93.3 Abnormal findings on diagnostic imaging of other parts of digestive tract (principal)
CPT/HCPCS: 74230

== ENCOUNTER 2020-04-01 04:59 | Emergency (ER) | payer MEDICARE, OTHER ==
[2020-04-01 05:18] VITALS: RESP 18; TEMP 98
--- NOTE | 2020-04-01 06:20 | CT ---
EXAM: CT Head Without Intravenous Contrast CLINICAL HISTORY: ITS.REASON CT Reason: fall TECHNIQUE: Axial computed tomography images of the head/brain without intravenous contrast. CTDI is 45.285 mGy and DLP is 968.40 mGy-cm. This CT exam was performed using one or more of the following dose reduction techniques: automated exposure control, adjustment of the mA and/or kV according to patient size, and/or use of iterative reconstruction technique. COMPARISON: 07/28/2019 FINDINGS: Brain: Underlying cerebral atrophy is stable from the previous exam. The previously noted hyperdense region in the left frontal region has resolved. Periventricular deep white matter hypodense changes are noted. No new mass effect. No hemorrhage. Ventricles: Unremarkable. No ventriculomegaly. Bones/joints: Unremarkable. No acute fracture. Soft tissues: Asymmetric hyperdense overlying superficial soft tissue swelling in the region of the right lateral periorbital and anterior temporal regions. No radiopaque foreign body. Sinuses: Unremarkable as visualized. No acute sinusitis. Mastoid air cells: Unremarkable as visualized. No mastoid effusion. IMPRESSION: Asymmetric hyperdense overlying superficial soft tissue swelling in the region of the right lateral periorbital and anterior temporal regions is most consistent with superficial contusive changes. No radiopaque foreign body. No skull fracture. No acute intracranial process. EXAM: CT Cervical Spine Without Intravenous Contrast CLINICAL HISTORY: ITS.REASON CT Reason: fall TECHNIQUE: Axial computed tomography images of the cervical spine without intravenous contrast. CTDI is 10.785 mGy and DLP is 293.90 mGy-cm. This CT exam was performed using one or more of the following dose reduction techniques: automated exposure control, adjustment of the mA and/or kV according to patient size, and/or use of iterative reconstruction technique. COMPARISON: No relevant prior studies available. FINDINGS: Vertebrae: There is straightening of the normal cervical lordosis which is presumed related to positioning or muscle spasm. The vertebral bodies are intact without acute osseous traumatic injury. No anterolisthesis or retrolisthesis is identified. The facet joints are well aligned without subluxation or dislocation. The spinous processes are intact. Marginal hypertrophic osteophyte changes are noted predominantly anteriorly throughout the cervical spine. Facet hypertrophic changes are noted at several levels. There is an incidental incomplete posterior arch at C1. Discs/spinal canal/neural foramina: No severe osseous canal stenosis. There is incidental osseous neural foraminal encroachment noted at several levels. Soft tissues: Unremarkable. Lung apices: The visualized lung apices demonstrate no evidence for significant acute traumatic injury. IMPRESSION: No acute osseous traumatic injury or significant abnormal alignment involving the cervical spine. Incidental multilevel degenerative changes without severe osseous central canal stenosis.
--- NOTE | 2020-04-01 06:33 | ED ---
Fall HPI - General Chief Complaint: Fall Stated Complaint: Fall Time Seen by Provider: 04/01/20 05:07 Source: EMS Mode of arrival: EMS - History of Present Illness Initial Comments: This patient is an 89-year-old woman presenting here by ambulance to be evaluated after she had fallen. It sounds like the patient was tender get out of bed and fell striking her right brow on the ground. No loss consciousness noted. The patient complains only of some mild aching. She denies any other symptoms. MD Complaint: fall -: minutes(s) Fall From: standing When Fall Occurred: just prior to arrival Fall Witnessed: yes, by living facility staff Place Fall Occurred: long-term/SNF Loss of Consciousness: none Prolonged Down Time?: no Symptoms Prior to Fall: none Location: head Severity: mild Quality: dull Context: history of frequent falls Associated Symptoms: denies - Related Data Home Medications Medication Instructions Recorded Confirmed Escitalopram [Lexapro] 5 mg PO DAILY 05/21/18 05/21/18 Rosuvastatin [Crestor] 20 mg PO DAILY 05/21/18 05/21/18 Previous Rx's Medication Instructions Recorded Acetaminophen Tab [Tylenol] 650 mg PO Q6HR PRN tab 05/25/18 Cefuroxime [Ceftin] 250 mg PO BID #14 tablet 05/25/18 Lidocaine 5% Patch [Lidoderm 5% 1 patch TOPICAL Q24H patch 05/25/18 Patch] Mirtazapine [Remeron] 7.5 mg PO HS #0 05/25/18 Allergies Allergy/AdvReac Type Severity Reaction Status Date / Time codeine AdvReac Unknown Rapid Verified 12/18/18 02:59 Heart Rate Review of Systems ROS Statement: Those systems with pertinent positive or pertinent negative responses have been documented in the HPI. ROS Other: All systems not noted in ROS Statement are negative. Eyes: Denies: vision change ENT: Denies: epistaxis Respiratory: Denies: cough, dyspnea Cardiovascular: Denies: chest pain, palpitations Gastrointestinal: Denies: abdominal pain, vomiting Musculoskeletal: Denies: back pain Neurological: Reports: as per HPI, headache. Denies: weakness Past Medical History Past Medical History: Chest Pain / Angina, COPD, Dementia, GERD/Reflux, Hearing Disorder / Deafness, Hyperlipidemia, Liver Disease, Osteoarthritis (OA), Pneumonia, Rheumatoid Arthritis (RA) Additional Past Medical History / Comment(s): RA. 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 prolapsed utererus, uti's, falls. per son-pt sleep walks and tries to get out of the house at night. can become combatative. pne vaccine after age 65 History of Any Multi-Drug Resistant Organisms: None Reported Past Surgical History: Appendectomy, Hernia Repair, Hysterectomy Additional Past Surgical History / Comment(s): RT ING HERNIA 05/30/14. Past Anesthesia/Blood Transfusion Reactions: No Reported Reaction Past Psychological History: No Psychological Hx Reported Smoking Status: Never smoker Past Alcohol Use History: None Reported Past Drug Use History: None Reported - Past Family History Mother Family Medical History: Diabetes Mellitus Father Family Medical History: Cancer Additional Family Medical History / Comment(s): melanoma General Exam Limitations: no limitations General appearance: alert, in no apparent distress Head exam: Present: normocephalic, other (Approximately 3 cm hematoma to the right brow.) Eye exam: Present: PERRL, EOMI. Absent: scleral icterus, conjunctival injection, nystagmus ENT exam: Present: normal oropharynx Neck exam: Present: normal inspection, full ROM. Absent: tenderness Respiratory exam: Present: normal lung sounds bilaterally. Absent: respiratory distress, wheezes, rales, rhonchi, stridor Cardiovascular Exam: Present: regular rate, normal rhythm, normal heart sounds. Absent: systolic murmur, diastolic murmur, rubs, gallop GI/Abdominal exam: Present: soft. Absent: distended, tenderness, guarding, rebound, rigid, mass Extremities exam: Present: normal inspection, normal capillary refill. Absent: pedal edema, calf tenderness Back exam: Absent: vertebral tenderness Neurological exam: Present: alert. Absent: motor sensory deficit Skin exam: Present: warm, dry, intact, normal color. Absent: rash Course Vital Signs 04/01/20 04/01/20 05:03 07:00 Temperature 98 F Pulse Rate 66 70 Respiratory 18 18 Rate Blood Pressure 150/80 156/80 O2 Sat by Pulse 98 99 Oximetry Disposition Clinical Impression: Fall, Head injury Disposition: HOME SELF-CARE Condition: Good Instructions (If sedation given, give patient instructions): Fall Prevention for Older Adults (ED), Head Injury (ED) Is patient prescribed a controlled substance at d/c from ED?: No Referrals: Sbarina Quinones MD [Primary Care Provider] - 1-2 days
[2020-04-01 07:01] VITALS: BP 156/80; PULSE 70
== END 2020-04-01 07:01 | disposition home or self-care (01) ==
LOC: EC 04:59
DX: S00.83XA Contusion of other part of head, initial encounter (principal); E78.5 Hyperlipidemia, unspecified; Z79.899 Other long term (current) drug therapy; Z91.81 History of falling; Z88.5 Allergy status to narcotic agent; W06.XXXA Fall from bed, initial encounter
CPT/HCPCS: 70450; 72125; 99284